=== PATIENT | female | born 1945 | race Caucasian/White ===

== ENCOUNTER 2018-06-01 08:31 | Outpatient (CLI) | payer OTHER, SELFPAY ==
[2018-06-01 11:12] LABS: ALT 36 U/L (12-78); AST 20 U/L (15-37); Albumin 3.7 g/dL (3.4-5.0); Alkaline Phosphatase 76 U/L (46-116); Anion Gap 7.1 mmol/L (3-11); BUN 24 mg/dL (7-18); Bilirubin, Total 0.6 mg/dL (0.2-1.0); CO2 30.9 mmol/L (21.0-32.0); CREATININE 1.02 mg/dL (0.55-1.02); Calcium 9.6 mg/dL (8.5-10.1); Chloride 104 mmol/L (98-107); Cholesterol 164 mg/dL (50-200); Estimated GFR 53.27 (mL/min/1.73m2); Glucose 114 mg/dL (70-100); HDL Cholesterol 33 mg/dL (40-60); LDL CHOLESTEROL 108 mg/dL (<100); Potassium 4.6 mmol/L (3.5-5.1); Sodium 142 mmol/L (136-145); Total Protein 6.9 g/dL (6.4-8.2); Triglyceride 108 mg/dL (30-150)
== END 2018-06-01 08:51 ==
PROVIDERS: PCP Family Medicine; Visit Provider Family Medicine
DX: E78.5 Hyperlipidemia, unspecified (principal)
CPT/HCPCS: 36415; 80053; 80061; 83721

== ENCOUNTER 2018-08-19 14:49 | Emergency (ER) | payer OTHER, SELFPAY ==
[2018-08-19 14:59] VITALS: BP 126/64; PULSE 109; RESP 18; TEMP 37.7; O2SAT 94
--- NOTE | 2018-08-19 15:22 | DI.RAD_ITS ---
SYMPTOM/DIAGNOSIS: COUGH, FEVER PA AND LATERAL CHEST: Comparison is made with 08/03/14. The heart size is normal. The lungs appear clear. No infiltrate, effusion or pulmonary edema is seen. IMPRESSION: No acute abnormality.
--- NOTE | 2018-08-19 15:23 | W.ED.GENAD ---
Discharge Plan Disposition Patient Disposition: HOME Condition: Improving Discharge Details Chief Complaint: Fever Clinical Impression: Fever Primary Care Provider: Chuyita Villa ED Provider: Corey Brumfield Home Meds and New Rx's Prescriptions: New doxycycline hyclate 100 mg capsule 100 mg PO BID 14 Days Qty: 28 RF: 0 Continued triamcinolone acetonide 80 GM ointment 1 kimberley Topical BID PRNRF: 0 ranitidine HCl [Zantac 75] 75 MG tablet 75 mg PO DAILY PRNRF: 0 betamethasone, augmented 50 GM cream 50 gm Topical PRN RF: 0 calcipotriene 120 GM cream 120 gm Topical PRN RF: 0 simvastatin 40 MG tablet 40 mg PO DAILY Qty: 90 RF: 11 citalopram 20 MG tablet 20 mg PO DAILY Qty: 90 RF: 12 aspirin [Aspir-81] 81 MG tablet,delayed release (DR/EC) 81 mg PO DAILY RF: 0 Discharge Instructions Instructions: Fever in Adults (ED) Additional Instructions: Please follow-up with [facility] on August 22 as planned. Please review with them the final results of your tick panel. Please take doxycycline as prescribed. As we discussed, this medication can cause increased sun sensitivity. Continue your regular medications. Please use 600 to 800 mg of ibuprofen as needed for fever Return for any acute concerns Discharge Data Discharge Date/Time-TO BE ENTERED AT DEPARTURE: 08/19/18 17:14 Medical Decision Making 72-year-old female presents with fever, scalp rash, report of numerous tick bites over the past few weeks. She also has had a recent upper respiratory illness with cough and production sputum. She arrives a temperature 37.7, triage pulse of 109, normotensive. On exam she does have erythematous and warmth to the scalp that blanches to the touch. There is no focal evidence of abscess. The differential diagnosis includes tickborne illness, viral syndrome, pneumonia, must exclude urinary tract infection. Patient had screening laboratories with tick panel and urinalysis obtained. She is referred for chest x-ray. Labs reveal white blood cell count of 15, hematocrit 45, platelets 209. There is left shift present. Chemistries reveal sodium 137, potassium 4.2, chloride 102, bicarb 23, BUN 16, creatinine 0.9, LFTs unremarkable Urine with small blood, otherwise negative. Chest x-ray without focal infiltrate. I do feel the patient has high likelihood of tickborne illness including Lyme disease, and will opt to initiate treatment with doxycycline pending review of her Lyme and tick panel. Patient has pre-standing follow-up with [facility] on August 22. She is stable for discharge. Lab Data Lab results reviewed: Yes I reviewed the patient's lab results. Laboratory Results - last 24 hr 08/19/18 08/19/18 08/19/18 15:30 15:40 15:40 WBC 15.21 H RBC 4.95 Hgb 15.2 Hct 45.5 MCV 91.9 MCH 30.7 MCHC 33.4 RDW 13.8 Plt Count 209 MPV 10.7 Immature Gran % 0.2 Neutrophils % 82.6 Lymphocytes % 10.2 Monocytes % 6.5 Eosinophils % 0.4 Basophils % 0.1 Absolute Neutrophils 12.56 H Absolute Lymphocytes 1.55 Absolute Monocytes 0.99 H Absolute Eosinophils 0.06 Absolute Basophils 0.02 Sodium 137 Potassium 4.2 Chloride 102 Carbon Dioxide 23.8 Anion Gap 11.2 H BUN 16 Creatinine 0.99 Estimated GFR/1.73 m2 55.14 Glucose 140 H Calcium 9.3 Total Bilirubin 0.6 AST 12 L ALT 28 Alkaline Phosphatase 76 Total Protein 7.6 Albumin 3.7 Urine Color Yellow Urine Clarity Clear Urine pH 6.5 Ur Specific [place] 1.020 Urine Protein Negative Urine Ketones Negative Urine Blood Small H Urine Nitrite Negative Urine Bilirubin Negative Urine Urobilinogen 0.2 Ur Leukocyte Esterase Negative Urine RBC 0-2 Urine WBC 0-2 Ur Epithelial Cells Moderate Urine Crystals Urine Bacteria Rare Urine Mucus Negative Ur Culture Indicated? No Urine Glucose Negative HPI General Mode of arrival: ambulatory. Date/Time Provider Initiated Documentation: 08/19/18 14:58. Limitations to Documentation: no limitations. Information obtained by: patient. History of Present Illness 72 year old F presents to the emergency department with the chief complaint of Fever and redness of the scalp, tick bites, described as moderate, Quality is described as dull and constant, and is localized to the head. Patient reports no radiation. Patient started experiencing this day(s) and it has been constant. No relieving factors improve symptom(s), No exacerbating factors reported . Patient notes cough and fever/chills; denies chest pain and shortness of breath. Patient did receive the following treatments prior to arrival, none Related Data Home Medications Medication Instructions Recorded Confirmed triamcinolone acetonide 1 kimberley TOPICAL BID PRN gm 05/18/12 08/19/18 aspirin [Aspir-81] 81 mg PO DAILY 01/01/13 08/19/18 ranitidine HCl [Zantac 75] 75 mg PO DAILY PRN tab-cap 06/10/13 08/19/18 betamethasone, augmented 50 gm TOPICAL PRN script 06/09/17 08/19/18 calcipotriene 120 gm TOPICAL PRN script 06/09/17 08/19/18 citalopram 20 mg PO DAILY #90 tab-cap 08/22/17 08/19/18 simvastatin 40 mg PO DAILY #90 tab-cap 08/22/17 08/19/18 doxycycline hyclate 100 mg PO BID 14 Days #28 cap 08/19/18 Previous Rx's Medication Instructions Recorded citalopram 20 mg PO DAILY #90 tab-cap 08/22/17 simvastatin 40 mg PO DAILY #90 tab-cap 08/22/17 doxycycline hyclate 100 mg PO BID 14 Days #28 cap 08/19/18 Allergies Allergy/AdvReac Type Severity Reaction Status Date / Time lidocaine Allergy Intermediate ??? Unverified 08/19/18 15:07 reaction. Flushing of face Penicillins Allergy Intermediate Skin Rash Unverified 08/19/18 15:07 codeine AdvReac Intermediate Nausea Unverified 08/19/18 15:07 ciprofloxacin AdvReac Mild GI Upset Unverified 08/19/18 15:07 General Stated Complaint: Fever PATRICE: 2 Review of Systems Review of Systems 6 systems reviewed and otherwise negative. Positive recent cough with production of sputum. Positive recent tick bites. 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 Grandmother Asthma Grandmother No problems noted. Sister Neoplasm Son No problems noted. Daughter No problems noted. Daughter No problems noted. Daughter No problems noted. Sister No problems noted. Social History Smoking/Tobacco Use Status: Former Tobacco Use Alcohol Intake: never Drug use: Never Do you feel safe at home: Yes Do you feel safe in your relationship?: Yes Exam Narrative Exam Narrative: GEN: awake, alert, oriented 3. Pleasant, well groomed, interactive. HEAD: Normocephalic, atraumatic, the scalp is diffusely erythematous and warm to the touch. No evidence of folliculitis ENT: Mucous membranes moist, oropharynx unremarkable, External ear exam unremarkable EYES: PERRL, EOMI NECK: Full ROM, no MARLENE, no menigismus CHEST/RESP: Nontender, clear to auscultation bilateral, no wheeze/rhonchi/rales CARDIOVASCULAR: RRR (at the time of exam), 2 - 3 out of 6 systolic ejection murmur. 2+ Rad pulse bilateral ABDOMEN: Soft, nontender, no mass. +Bowel sounds EXT: Full ROM, no edema, no rash Neuro: Grossly normal neurologic exam, conversant, interactive. Psych: Speech fluent, thoughts congruent, affect normal Course Vital Signs Temperature 37.7 C H 08/19/18 14:59 Pulse 109 H 08/19/18 14:59 Respiratory Rate 18 08/19/18 14:59 Blood Pressure 126/64 08/19/18 14:59 Pulse Oximetry 94 L 08/19/18 14:59 Temperature 37.7 C H 08/19/18 14:59 Temperature Source Oral 08/19/18 14:59 Pulse 109 H 08/19/18 14:59 Respiratory Rate 18 08/19/18 14:59 Respiratory Effort Non-Labored 08/19/18 15:05 Blood Pressure 126/64 08/19/18 14:59 Blood Pressure Position Sitting 08/19/18 14:59 Pulse Oximetry 94 L 08/19/18 14:59 Oxygen Delivery Method Room Air 08/19/18 14:59 Oxygen Flow Rate 0 08/19/18 14:59 Pain Level 8 08/19/18 14:59
[2018-08-19] MEDS: Ibuprofen 800 MG TAB PO (15:25)
[2018-08-19 15:44] LABS: Bilirubin Negative (Negative); Blood Small (Negative); Clarity Clear (Clear); Glucose Negative (Negative); Ketones Negative (Negative); Leukocyte Esterase Negative (Negative); Nitrite Negative (Negative); Urobilinogen 0.2 EU/dL (Up TO 0.2); pH 6.5 (5-8)
[2018-08-19 15:58] LABS: Bacteria Rare HPF (Negative); Epithelial Cells Moderate HPF (Negative); RBC 0-2 (0-2); WBC 0-2 HPF (0-5)
[2018-08-19 15:59] LABS: C & S Indicated? No; Mucus Negative (Negative)
[2018-08-19 16:07] LABS: Abs Immature Grans 0.03 k/cumm (0.0-0.09); Absolute Basophil Count 0.02 k/cumm (0.0-0.2); Absolute Eosinophil Count 0.06 k/cumm (0.0-0.7); Absolute Lymphocyte Count 1.55 k/cumm (1.2-3.4); Absolute Monocyte Count 0.99 k/cumm (0.11-0.7); Absolute Neutrophil Count 12.56 k/cumm (1.2-6.7); Basophils % 0.1; Eosinophils % 0.4; HCT 45.5 % (36.0-46.0); HGB 15.2 g/dL (12.0-15.5); Immature Grans % 0.2; Lymphocytes % 10.2; Mean Corp. HGB Concentration 33.4 g/dL (32.0-36.0); Mean Corpuscular Hemoglobin 30.7 pg (27.0-33.0); Mean Corpuscular Volume 91.9 fL (80-95); Mean Platelet Volume 10.7 fL (8.0-11.0); Monocytes % 6.5; Neutrophils % 82.6; Platelet Count 209 x1000/uL (130-400); RBC 4.95 m/cumm (4.00-5.20); RBC Distribution Width 13.8 % (11.7-14.6); White Blood Cell Count 15.21 k/cumm (4.4-10.8)
[2018-08-19 16:35] LABS: ALT 28 U/L (12-78); AST 12 U/L (15-37); Albumin 3.7 g/dL (3.4-5.0); Alkaline Phosphatase 76 U/L (46-116); Anion Gap 11.2 mmol/L (3-11); BUN 16 mg/dL (7-18); Bilirubin, Total 0.6 mg/dL (0.2-1.0); CO2 23.8 mmol/L (21.0-32.0); CREATININE 0.99 mg/dL (0.55-1.02); Calcium 9.3 mg/dL (8.5-10.1); Chloride 102 mmol/L (98-107); Estimated GFR 55.14 (mL/min/1.73m2); Glucose 140 mg/dL (70-100); Potassium 4.2 mmol/L (3.5-5.1); Sodium 137 mmol/L (136-145); Total Protein 7.6 g/dL (6.4-8.2)
[2018-08-19 16:46] VITALS: BP 124/67; PULSE 91; RESP 18; TEMP 36.4; O2SAT 96
[2018-08-19] MEDS: Doxycycline Hyclate 100 MG CAP PO (17:13)
--- NOTE | 2018-08-19 17:36 | DI.VRAD_ITS ---
EXAM: XR Chest, 2 Views EXAM DATE/TIME: 08/19/2018 3:23 PM CLINICAL HISTORY: 72 years old, female; Other: Cough; Additional info: Cough and fever TECHNIQUE: Imaging protocol: XR of the chest, 2 views. COMPARISON: CR CHEST 2 VIEWS PA,LAT 08/03/2014 1:24 PM FINDINGS: Lungs: Unremarkable. No consolidation. Pleural space: Unremarkable. No pleural effusion. No pneumothorax. Heart/Mediastinum: Unremarkable. No cardiomegaly. Bones/joints: Unremarkable. IMPRESSION: No evidence for acute abnormality in the chest. COMMENT: Preliminary interpretation is based on receipt of 2 image(s). A final report will be issued subsequently. Dictated and Authenticated by: Luz Elena Keating MD. Ordering:VIRGINIA Nicole MD
[2018-08-21 10:57] LABS: Lyme Ab w Rflx to Lyme Confirm Negative
[2018-08-22 22:00] LABS: Anaplasma phagocytophilum Negative (Negative); B. miyamotoi PCR Negative (Negative); Babesia divergens/MO-1 Negative (Negative); Babesia duncani Negative (Negative); Babesia microti Negative (Negative); Ehrlichia chaffeensis Negative (Negative); Ehrlichia ewingii/canis Negative (Negative); Ehrlichia muris eauclairensis Negative (Negative)
== END 2018-08-19 17:14 | disposition home or self-care (01) ==
PROVIDERS: Emergency Provider Emergency Medicine; PCP Family Medicine
DX: R50.9 Fever, unspecified (principal); R21 Rash and other nonspecific skin eruption; W57.XXXA Bitten or stung by nonvenomous insect and other nonvenomous arthropods, initial encounter
CPT/HCPCS: 36415; 80053; 87798; 99283; 71046; 81003; 81015; 85025; 86618

== ENCOUNTER 2019-11-22 04:36 | Outpatient (CLI) | payer OTHER, SELFPAY ==
--- NOTE | 2019-11-22 12:07 | DI.MAMMO_ITS ---
EXAM: MAMMO SCREENING CLINICAL HISTORY: SCREENING, Z12.31 TECHNIQUE: Mammograms were interpreted according to the usual protocol including computer analysis w [employer] CAD system, tomosynthesis and C-view imaging. COMPARISON: 2010 through 2017 FINDINGS: The breasts are composed of scattered fibroglandular densities, Breast Density category B. Left breast: No suspicious masses or suspicious microcalcifications are seen. No skin thickening or abnormal axillary lymph nodes are seen. There has been no significant change from prior exams. Right breast: There is been interval increase in size and density of the previously noted nodule in t he upper outer quadrant of the right breast. Spot compression views and ultrasound are requested for further evaluation. In the medial breast, on the CC view, there is a question of an additional area of nodularity versus overlying tissue. Spot compression view is also requested for this area. There are no suspicious c alcifications or skin thickening.. IMPRESSION: Spot compression views and ultrasound are requested for further evaluation of areas of nodularity in the right breast. BI-RADS Category 0 - Assessment Incomplete: Need additional imaging evaluation Breast Density - Category B, scattered fibroglandular densities. A negative radiographic report should not delay biopsy if a dominant or clinically suspicious mass is present. Up to ten percent of cancers are not identified on mammography. A negative report may reinforce clinical impression. Adenosis and dense breasts may obscure an underlying neoplasm. False positive reports average 6 to 10%. Patient will receive a letter notifying them of these results.
--- NOTE | 2019-11-22 13:00 | DI.DEXA_ITS ---
EXAM: XR DEXA BONE DENSITY W/WO LILLIANA CLINICAL HISTORY: OSTEOPENIA, M85.80 TECHNIQUE: [employer] Horizon C densitometer. COMPARISON: Two thousand six and 2008 FINDINGS: The lateral view of the thoracic and lumbar spine shows no evidence of compression fractures. The bone mineral density measurements of the lumbar spine correspond to a total T-score of -0.3, in t he normal range. This represents a 10.6 percent increase when compared with 2008 and a 14.9 percent increase when compared with 2006. There are degenerative disc changes with prominent endplate osteop hytes at the L2-3 and L3-4 levels which likely contribute to increasing bone mineral density. The bone mineral density measurements of the left hip correspond to a total T-score of -1.8 and a fem oral neck T-score of -2.2, in the normal range. This is not significantly changed from the previous exam. The bone mineral density measurements of the left forearm correspond to a total T-score of -0. 3 and a T-score of the distal 3rd of -0.8, in the normal range. The forearm was not analyzed on the previous exams. IMPRESSION: Osteopenia of left hip. Normal bone mineral density of the lumbar spine and forearm.
== END 2019-11-22 04:56 ==
PROVIDERS: Visit Provider Family Medicine
DX: Z12.31 Encounter for screening mammogram for malignant neoplasm of breast (principal); M85.88 Other specified disorders of bone density and structure, other site
CPT/HCPCS: 77063; 77067; 77080

== ENCOUNTER 2019-11-27 00:41 | Outpatient (CLI) | payer OTHER, SELFPAY ==
--- NOTE | 2019-11-27 | DI.MAMMO_ITS ---
EXAM: MG MAMMO SCREEN CALL BACK UNI CLINICAL HISTORY: INCREASE IN SIZE AND DENSITY OF NOTED NODULE IN UOQ RT BREAST. TECHNIQUE: Mammograms were interpreted according to the usual protocol including computer analysis w [employer] CAD system, tomosynthesis and C-view imaging. COMPARISON: FINDINGS: Additional mammographic views of the right breast and right breast ultrasound are interpreted in conj unction. These examinations were obtained to evaluate a well-circumscribed nodule of the lateral concha tral portion of the right breast and an area of questionable nodularity of the medial central portion of the right breast. There is a simple cyst corresponding in location to the mammographically ident ified mass of the lateral central portion of the breast measuring about 8 millimeters in diameter. Ultrasound a graphically, there is no mass or cyst corresponding to the questionable area of nodulari ty in the medial central portion of the breast. IMPRESSION: No specific evidence of malignancy at this time. Follow-up unilateral right breast mammogram request ed in 6 months. BI-RADS Category 3 - 6 month - Probably Benign Finding: Recommend follow-up mammography in 6 months Breast Density - Category B - Scattered areas of fibroglandular density
== END 2019-11-27 01:01 ==
PROVIDERS: Visit Provider Family Medicine
DX: N63.11 Unspecified lump in the right breast, upper outer quadrant (principal)
CPT/HCPCS: 76642; 77063; 77067

== ENCOUNTER 2020-01-21 00:32 | Outpatient (CLI) | payer OTHER, SELFPAY ==
--- NOTE | 2020-01-21 | DI.RAD_ITS ---
EXAM: XR SHOULDER LT COMPLETE 2+V CLINICAL HISTORY: LT SHOULDER PAIN,M25.512 TECHNIQUE: COMPARISON: No exams were available for comparison FINDINGS: Five views were obtained. There is a small calcific or ossific density projected anteriorly near the coracoid. There are mild hypertrophic marginal osteophytes of the acromioclavicular joint. Minimal marginal osteophytes noted at the glenohumeral joint. Cartilaginous joint space of the glenohumeral joint appears fairly well maintained. IMPRESSION: Mild degenerative changes as described. No evidence fracture or dislocation. RADIATION DOSE DELIVERED: Total DLP Total DLP
== END 2020-01-21 00:52 ==
PROVIDERS: PCP Family Medicine; Visit Provider Family Medicine
DX: M25.512 Pain in left shoulder (principal); M19.012 Primary osteoarthritis, left shoulder
CPT/HCPCS: 73030

== ENCOUNTER → 2020-02-19 01:11 | Outpatient (CLI) | payer OTHER, SELFPAY ==
--- NOTE | 2020-02-19 | DI.RAD_ITS ---
EXAM: XR KNEE RT 3V AP,LAT,HAYDE CLINICAL HISTORY: ACUTE RT KNEE PAIN,M25.561 TECHNIQUE: COMPARISON: CR LEFT KNEE 3 VIEW COMPLETE from 05/28/2012 FINDINGS: Three views were obtained. There is severe narrowing of the medial tibiofemoral cartilaginous joint spaces. There is chondrocalcinosis noted at the tibiofemoral joints. There are mild marginal osteop hytes of all 3 joints of the knee. There is mild subchondral sclerosis at the medial tibiofemoral michelle int. IMPRESSION: Severe DJD involving medial tibiofemoral joint. RADIATION DOSE DELIVERED: Total DLP
== END ==
PROVIDERS: PCP Family Medicine; Visit Provider Family Medicine
DX: M17.11 Unilateral primary osteoarthritis, right knee (principal)
CPT/HCPCS: 73562

== ENCOUNTER 2020-05-27 01:40 | Outpatient (CLI) | payer OTHER, SELFPAY ==
--- NOTE | 2020-05-27 09:21 | DI.MAMMO_ITS ---
EXAM: MG MAMMO DIAGNOSTIC UNI CLINICAL HISTORY: DIAGNOSTIC, 6 MONTH FOLLOW UP, Z09 TECHNIQUE: Mammograms were interpreted according to the usual protocol including computer analysis w [employer] CAD system, tomosynthesis and C-view imaging. COMPARISON: MG Screening Bilat Mammo from 07/10/2015 MG Screening Bilat Mammo from 08/29/2017 MG MG MAMMO SCREENING from 11/22/2019 MG MG MAMMO SCREEN CALL BACK UNI from 11/27/2019 MG MG MAMMO SCREEN CALL BACK UNI from 11/27/2019 US US BREAST RT LIMITED from 11/27/2019 FINDINGS: This is a six-month follow-up of the right breast. The right breast is composed of scattered fibroglandular densities, Breast Density category B. No suspicious masses or suspicious microcalcifications are seen. No skin thickening or abnormal axillary lymph nodes are seen. The previously questioned asymmetry in the medial breast is not visible on the current exam. The cys t in the upper outer quadrant is unchanged.. IMPRESSION: BI-RADS Category 2 - Benign Findings Yearly screening mammography is recommended. Breast Density - Category B, scattered fibroglandular densities. A negative radiographic report should not delay biopsy if a dominant or clinically suspicious mass is present. Up to ten percent of cancers are not identified on mammography. A negative report may reinforce clinical impression. Adenosis and dense breasts may obscure an underlying neoplasm. False positive reports average 6 to 10%. Patient will receive a letter notifying them of these results.
== END 2020-05-27 02:00 ==
PROVIDERS: PCP Family Medicine; Visit Provider Family Medicine
DX: Z12.31 Encounter for screening mammogram for malignant neoplasm of breast (principal); R92.8 Other abnormal and inconclusive findings on diagnostic imaging of breast; N60.01 Solitary cyst of right breast
CPT/HCPCS: 77061; 77065; G0279

== ENCOUNTER 2020-06-23 15:08 | Inpatient (IN) | payer OTHER, SELFPAY ==
[2020-06-23] VITALS (9 sets, daily range): BP systolic 108–120; BP diastolic 47–70; PULSE 78–94; RESP 18; TEMP 36.6; O2SAT 94–96
--- NOTE | 2020-06-23 15:30 | DI.CT_ITS ---
Exam(s) CT ABDOMEN PELVIS W EXAM: CT ABDOMEN PELVIS W CLINICAL HISTORY: lower abdomen pain TECHNIQUE: Imaging Protocol: Axial computed tomography images with coronal and sagittal reformatted images were created and reviewed CONTRAST MATERIAL: Intravenous: Omnipaque 350 Contrast volume:100 mL Oral: No COMPARISON: CT ABD PELVIS WITH CONTRAST from 09/28/2010 CT ABD PELVIS WITH CONTRAST from 09/28/2010 FINDINGS: ABDOMEN: Lung Bases: There is scarring or atelectasis in the lung bases. There is a 8 mm nodule in the right lower lobe. There is a small hiatal hernia. Liver: Normal density. There are cysts seen in the liver. No suspicious hepatic masses are present. Portal, Superior Mesenteric, and Splenic Veins: Unremarkable. Gallbladder and Biliary Tract: No radiodense calculus or dilation. Pancreas: Normal density, no abnormal calcifications or inflammatory process. Spleen: Normal. Adrenals: No masses seen. Kidneys: Normal size, contour and axis. No radiodense stones or obstructive uropathy. There are tiny hypodensities in the kidneys. These are too small for further characterization, but likely reflect s mall cysts. Abdominal Aorta: Abdominal portion non-dilated. There is ectasia of the abdominal aorta measuring up to 2.8 cm. Moderate atherosclerosis is present. Bowel: There is diverticulosis scattered throughout the colon. There is thickening of the wall of th e sigmoid colon with pericolonic inflammatory changes suggestive of acute diverticulitis. There is a 3.5 x 1.5 cm fluid collection lateral and inferior to the inflamed sigmoid consistent with an absces s. There is no pneumoperitoneum. The left ovary is not distinctly visualized and may be involved wi th the adjacent sigmoid diverticulitis. There is also irregular enhancement on the surface of the ut erus adjacent to the sigmoid colon which likely reflects reactive inflammation. No evidence of appen dicitis. No evidence of bowel obstruction. Peritoneal Cavity: Please see the above discussion under bowel. No free air. Lymph Nodes: Within normal limits. Bones: Within normal limits for the patient's age. Soft Tissues: Unremarkable. PELVIS: Bladder: Symmetric distention, no gross wall thickening. Reproductive Organs: Please see the above section. Lymph Nodes: Within normal limits. Bones: Within normal limits for the patient's age. IMPRESSION: 1. Findings of acute sigmoid diverticulitis. There is a 3.5 x 1.5 cm pericolonic abscess. No pneumo peritoneum. 2. Inflammatory changes involving the uterus and left adnexa likely secondary to the adjacent sigmoid diverticulitis. 3. 8 mm right lower lobe pulmonary nodule. For low risk patients, CT scan at 6-12 months is recommen ded. Then consider CT scan in 18-24 months. For patients at high risk (history of smoking or other risk factors), recommend CT scan at 6-12 months, then CT scan of the chest at 18-24 months. RADIATION DOSE DELIVERED: 955.09mGy.cm Total DLP DATA REPOSITORY: All CT scans at this facility are submitted to the National Radiology Data Registry (NRDR) Dose Index Registry (DIR) with the [employer] (ACR). RADIATION OPTIMIZATION: All CT scans at this facility use at least one of these dose optimization te chniques: automated exposure control; mA and/or kV adjustment per patient size (includes targeted exa ms where dose is matched to clinical indication); or iterative reconstruction.
--- NOTE | 2020-06-23 15:48 | ED.GENADUL_ITS ---
Discharge Plan Disposition Patient Disposition: [facility] INPATIENT Condition: Stable Discharge Details Clinical Impression: Diverticulitis of intestine with abscess Primary Care Provider: Nara Contreras ED Provider: Dnoald Franklin Home Meds and New Rx's Prescriptions: No Action meloxicam 15 mg tablet 15 mg PO DAILY RF: 0 methotrexate sodium 2.5 mg tablet 15 mg PO QWEEK RF: 0 omeprazole 20 mg capsule,delayed release(DR/EC) 20 mg PO DAILY RF: 0 folic acid 1 mg tablet 1 mg PO DAILY RF: 0 rosuvastatin 5 mg tablet 5 mg PO QPM RF: 0 cholecalciferol (vitamin D3) [Vitamin D3] 50 mcg (2,000 unit) Tablet 50 mcg PO DAILY RF: 0 Medical Decision Making 74 yo female with hx of psoriasis, hld who has had prior tubal ligation otherwise states no prior abdominal surgeries comes in with lower abdomen cramping and sharp pains since Monday. Denies vomit but has had nausea, feels she has had some burning with urination, no changes in bowel habits. Denies chest pain, fevers, dyspnea. She has no upper abdomen tenderness on exam but both lower quadrants are tender to palpation. Given 4 days of pain and her tenderness on exam will obtain labs and imaging to evaluate for possible c olitis, appendicitis, diverticulitis, small bowel obstruction. She has no pain out of proportion to exam so doubt mesenteric ischemia labs with wbc of 15, ct showing 1.6x3.8cm small abscess, no free air. She remains stable, will consult with surgery about admission for iv antibiotics. She has pcn and cipro allergy so will start cefepime and flagyl and monitor her during the cefepime for any signs of reaction spoke with Dr. hwang who accepts for admission Differential Diagnosis Differential Diagnosis: appendicitis, colitis, diverticulitis, sbo Medical Records Medical records reviewed: Yes I reviewed the patient's medical records. Imaging Data Radiologic Study: Attestation: I personally reviewed and interpreted this imaging study as follows: Imaging: CT Scan Radiologist's impression: IMPRESSION: 1. Findings of acute sigmoid diverticulitis with 1.6 x 3.8 cm pericolonic fluid collection consistent with small abscess. No extraluminal air is identified. 2. The inflammation associated with the sigmoid diverticulitis involves the uterus and left adnexa, as described above. 3. Severe atherosclerosis of the abdominal aorta with focal fusiform ectasia as described above. 4. Findings of mild interstitial pulmonary fibrosis at the lung bases. 5. 8 x 5 mm subpleural right lower lobe nodule, indeterminate. For patients at low risk (minimal or absent history of smoking and of other known risk factors), recommend CT Chest at 6-12 months, then consider CT Chest at 18-24 months. For patients at high risk (history of smoking or of other known risk factors), recommend CT Chest at 6-12 months, then CT Chest at 18-24 months. (Reference: Emelina) Lab Data Lab results reviewed: Yes I reviewed the patient's lab results. HPI General Mode of arrival: ambulatory . Date/Time Provider Initiated Documentation: 06/23/20 15:20 . Limitations to Documentation: no limitations . Information obtained by: patient . History of Present Illness 74 year old F presents to the emergency department with the chief complaint of abdomen pain, described as moderate, and is localized to the abdomen. Patient reports no radiation. Patient started experiencing this day(s) (4) and it has been constant. No relieving factors improve symptom(s), No exacerbating factors reported . Patient notes other (nausea). Patient did receive the following treatments prior to arrival, none Related Data Home Medications Medication Instructions Recorded Confirmed cholecalciferol (vitamin D3) 50 mcg PO DAILY 06/23/20 06/23/20 [Vitamin D3] folic acid 1 mg PO DAILY 06/23/20 06/23/20 meloxicam 15 mg PO DAILY 06/23/20 06/23/20 methotrexate sodium 15 mg PO QWEEK 06/23/20 06/23/20 omeprazole 20 mg PO DAILY 06/23/20 06/23/20 rosuvastatin 5 mg PO QPM 06/23/20 06/23/20 Allergies Allergy/AdvReac Type Severity Reaction Status Date / Time lidocaine Allergy Intermediate ??? Unverified 06/23/20 15:21 reaction. Flushing of face Penicillins Allergy Intermediate Skin Rash Unverified 06/23/20 15:21 codeine AdvReac Intermediate Nausea Unverified 06/23/20 15:21 ciprofloxacin AdvReac Mild GI Upset Unverified 06/23/20 15:21 General Stated Complaint: Abd Prob PATRICE: 3 Review of Systems All systems reviewed & are unremarkable except as noted in HPI and below Constitutional Constitutional: Denies chills, Denies fever(s) and Denies weakness ENT Ears, Nose, Mouth, and Throat: Denies change in voice Cardiovascular Cardiovascular: Denies chest pain and Denies dyspnea Respiratory Respiratory: Denies cough and Denies dyspnea Gastrointestinal Gastrointestinal: Denies vomiting Neurologic Neurologic: Denies weakness [facility] Medical History (Updated 06/23/20 @ 17:46 by Donald Franklin MD) Anxiety (12/08/14) Atrophic vaginitis (06/17/14) Diverticulosis of colon without diverticulitis Elevated random blood glucose level (08/03/14) History of tobacco use Lichen sclerosus et atrophicus of the vulva (06/30/15) Low back pain (01/19/06) DDD L5-S1 Neck pain C5-6 disc space narrowing Osteopenia T-2.01/-1.6/-1.7 Right hip pain (05/30/17) Urinary incontinence (06/17/14) Vitamin D deficiency (06/09/17) Surgical History Appendectomy Arthroplasty of knee (~05/2009) right knee torn medial and lateral meniscus; Meniscectomy and chonfroplasty of medial femoral condyle. Ligation of fallopian tube Family History Mother Diabetes Heart disease Father , PNEUMONIA at age 92. Heart disease Hyperlipidemia Sister Alcohol abuse Sister Heart disease Grandfather Heart disease Grandfather No problems noted. Grandmother Asthma Grandmother No problems noted. Sister Neoplasm LEUKEMIA Son No problems noted. Daughter No problems noted. Daughter No problems noted. Daughter No problems noted. Sister , CHILDBIRTH at age 21. No problems noted. Social History Smoking/Tobacco Use Status: Former Tobacco Use Smoking risk assessment performed?: Yes Alcohol Intake: never Drug use: Never Do you feel safe at home: Yes Do you feel safe in your relationship?: Yes Exam Const General: no acute distress Orientation: alert HENMT Head: normal to inspection Ears: external ears normal General nose exam: external nose normal Mouth: moist mucous membranes Eyes General: appearance normal, both eyes and all related structures Neck Neck: normal visual inspection Resp Effort & Inspection: normal respiratory effort and able to speak in complete sentences Cardio Rate: regular rate GI Palpation: soft and tender Skin General skin exam: no rashes or lesions noted Neuro General: patient alert and patient oriented x3 Extrem General: normal to inspection Psych Mental Status: mental status grossly normal Course Vital Signs Vital signs: Vital Signs Temperature 36.6 C 06/23/20 15:17 Pulse 94 H 06/23/20 15:17 Respiratory Rate 18 06/23/20 15:17 Blood Pressure 120/62 06/23/20 15:17 Pulse Oximetry 96 06/23/20 15:17 Temperature 36.6 C 06/23/20 15:17 Temperature Source Skin 06/23/20 15:17 Pulse 94 H 06/23/20 15:17 Respiratory Rate 18 06/23/20 15:17 Respiratory Effort Non-Labored 06/23/20 15:25 Blood Pressure 120/62 06/23/20 15:17 Blood Pressure Position Sitting 06/23/20 15:17 Pulse Oximetry 96 06/23/20 15:17 Oxygen Delivery Method Room Air 06/23/20 15:17 Oxygen Flow Rate 0 06/23/20 15:17 Pain Level 10 06/23/20 15:17
[2020-06-23 15:51] LABS: Abs Immature Grans 0.07 10^3/uL (0.0-0.06); Absolute Eosinophil Count 0.03 10^3/uL (0.0-0.7); Absolute Lymphocyte Count 1.28 10^3/uL (1.2-3.4); Basophils % 0.3; Eosinophils % 0.2; Immature Grans % 0.4; Lymphocytes % 8.2; MCH 28.9 pg (27.0-33.0); MCHC 32.6 % (32.0-36.0); MCV 88.7 fL (80-95); MPV 10.1 fL (8.0-11.0); Monocytes % 8.9; Nucleated RBC 0 %; Platelet Count 241 10^3/uL (130-400); RBC 4.85 10^6/uL (3.93-5.22); RDW 15.5 % (11.7-14.6); RDW-SD 49.5 fL; WBC 15.56 10^3/uL (4.4-10.8)
[2020-06-23] MEDS: HYDROmorphone 2 MG/ML VIAL 1 MG IVP (15:57)
[2020-06-23] MEDS: Ondansetron 4 MG/2 ML VIAL IVP (15:58)
[2020-06-23] MEDS: Normal Saline 1,000 ML 1000 ML IV (15:58)
[2020-06-23 16:03] LABS: Lipase 53 U/L (73-393)
[2020-06-23 16:05] LABS: ALT 28 U/L (14-59); AST 12 U/L (15-37); Albumin 3.4 g/dL (3.4-5.0); Alkaline Phosphatase 85 U/L (46-116); Anion Gap 8.9 mmol/L (3-11); BUN 16 mg/dL (7-18); Bilirubin, Direct 0.3 mg/dL (0.0-0.2); Bilirubin, Total 1.2 mg/dL (0.2-1.0); CO2 28.1 mmol/L (21.0-32.0); CREATININE 1.1 mg/dL (0.55-1.02); Calcium 9.6 mg/dL (8.5-10.1); Chloride 102 mmol/L (98-107); Estimated GFR 48.55 (mL/min/1.73m2); Glucose 114 mg/dL (74-106); Potassium 4.1 mmol/L (3.5-5.1); Sodium 139 mmol/L (136-145); Total Protein 7.5 g/dL (6.4-8.2)
[2020-06-23 16:06] LABS: Absolute Basophil Count 0.05 10^3/uL (0.0-0.2); Absolute Monocyte Count 1.38 10^3/uL (0.1-0.8); Absolute Neutrophil Count 12.76 10^3/uL (1.2-6.7)
[2020-06-23 16:07] LABS: PTT Activated 26.5 sec (21.0-27.5); Prothrombin Time 10.5 sec (9.3-11.0)
[2020-06-23] MEDS: Omnipaque 350 MG/ML 100 ML BTL IJ (16:33)
[2020-06-23] MEDS: Normal Saline - Diluent 50 ML VIAL IV (16:35)
[2020-06-23 17:01] LABS: Bilirubin Negative (Negative); Blood Small (Negative); Clarity Clear (Clear); Glucose Negative (Negative); Ketones 15 mg/dL (Negative); Leukocyte Esterase Small (Negative); Nitrite Negative (Negative); Urobilinogen 0.2 EU/dL (Up TO 0.2)
[2020-06-23 17:13] LABS: Bacteria Negative HPF (Negative); C & S Indicated? Yes; Casts Negative LPF (Negative); Crystals Negative HPF (Negative); Epithelial Cells Few HPF (Negative); Mucus Negative (Negative); Other Cells Few Renal (Negative)
--- NOTE | 2020-06-23 17:27 | DI.VRAD_ITS ---
Addendum created by Rajinder Lin MD on 06/23/2020 5:45:22 PM EDT: Findings were discussed with Donald Franklin at 06/23/2020 5:45 PM EDT. Initial report created on 06/23/2020 5:26:16 PM EDT: PROCEDURE INFORMATION: Exam: CT Abdomen And Pelvis With Contrast Exam date and time: 06/23/2020 4:29 PM Age: 74 years old Clinical indication: Other: Lower abdomen pain TECHNIQUE: Imaging protocol: Computed tomography of the abdomen and pelvis with contrast. Radiation optimization: All CT scans at this facility use at least one of these dose optimization techniques: automated exposure control; mA and/or kV adjustment per patient size (includes targeted exams where dose is matched to clinical indication); or iterative reconstruction. Contrast material: OMNIPAQUE 350; Contrast volume: 100 ml; Contrast route: INTRAVENOUS (IV); COMPARISON: SC ABDOMEN ULTRASOUND (P) 06/09/2017 10:27 AM FINDINGS: Lungs: There is mild subpleural reticular opacity within the lung bases suggesting mild interstitial pulmonary fibrosis. There is an 8 x 5 mm subpleural right lower lobe nodule on image 4, series 4. Mediastinal space: There is a small sliding hiatal hernia. Liver: There are 2 small left hepatic lobe cysts, the larger measuring 1.1 cm. Gallbladder and bile ducts: Normal. No calcified stones. No ductal dilation. Pancreas: The pancreas is mildly atrophic, but otherwise appears unremarkable without focal lesion or evidence of acute inflammation. Spleen: Normal. No splenomegaly. Adrenal glands: There is diffuse bilateral nonspecific mild adrenal enlargement, suggesting hyperplasia. Kidneys and ureters: There is a tiny subcentimeter left renal lesion which is too small to characterize but likely represents a benign cyst. No renal or ureteral stones are identified. There is no hydronephrosis or hydroureter. Stomach and bowel: There is distal colonic diverticulosis. There is inflammatory wall thickening of the distal segment of the sigmoid colon, as seen around image 69, series 4. There is a 1.6 x 3.8 cm fluid collection extending posteriorly and inferiorly from the distal sigmoid colon, best seen around image 72, series 4, with surrounding marked fat stranding as well as mild rim enhancement, consistent with small pericolonic abscess. No extraluminal air is identified. Appendix: No evidence of appendicitis. Intraperitoneal space: Unremarkable. No free air. No significant fluid collection. Vasculature: There is severe atherosclerotic calcification the abdominal aorta, with focal ectasia measuring 2.7 x 2.9 cm. Lymph nodes: Unremarkable. No enlarged lymph nodes. Urinary bladder: No bladder stones are identified. Reproductive: There is mild irregular enhancement of the surface of the uterus adjacent to the sigmoid colon, likely reactive inflammation. The left ovary is not well visualized and appears to be involved in the pericolonic inflammation associated with sigmoid diverticulitis. Bones/joints: There is multilevel moderate degenerative change of the lumbar spine. No acute fractures are identified. Soft tissues: Unremarkable. Other findings: There is at least moderate calcification of the aortic valve. IMPRESSION: 1. Findings of acute sigmoid diverticulitis with 1.6 x 3.8 cm pericolonic fluid collection consistent with small abscess. No extraluminal air is identified. 2. The inflammation associated with the sigmoid diverticulitis involves the uterus and left adnexa, as described above. 3. Severe atherosclerosis of the abdominal aorta with focal fusiform ectasia as described above. 4. Findings of mild interstitial pulmonary fibrosis at the lung bases. 5. 8 x 5 mm subpleural right lower lobe nodule, indeterminate. For patients at low risk (minimal or absent history of smoking and of other known risk factors), recommend CT Chest at 6-12 months, then consider CT Chest at 18-24 months. For patients at high risk (history of smoking or of other known risk factors), recommend CT Chest at 6-12 months, then CT Chest at 18-24 months. (Reference: Emelina) REFERENCES: Elizabethhoeyad H, et al. Guidelines for Management of Incidental Pulmonary Nodules Detected on CT Images: From the Fleischner Society 2017. Radiology. 2017;284(1):228-243. Dictated and Authenticated by: Rajinder Lin MD. Ordering:ADAMA Bennett MD
[2020-06-23] MEDS: CEFEPIME 2 GM in Normal Saline 100 ML IVPB (18:17)
[2020-06-23 18:54] LABS: Source Nasal/Nares
--- NOTE | 2020-06-23 19:04 | W.PM.HP.N ---
Date of service: 06/23/20 Time of Service: 19:04 Assessment and Plan Assessment and plan (1) Osteopenia: Status: Chronic (2) Atrophic vaginitis: Status: Chronic (3) Elevated random blood glucose level: Status: Resolved (4) Hyperlipidemia: Status: Chronic (5) History of tobacco use: Status: Resolved (6) Psoriasis: Status: Chronic (7) Diverticulitis of intestine with abscess: Status: Acute Assessment and plan: Patient is doing mid for IV antibiotics, pain management, GI and DVT prophylaxis and supportive care. We will have by imaging at [facility] reviewing the films in the a.m. to see if she is a candidate for trach placement. We will hold her methotrexate at this time because of infection I did personally review her antibiotics and the images were sent down to body imaging at [facility]. We will see if a feel the abscess is amenable to CT drainage in the a.m. patient is n.p.o. after midnight and not on any blood thinners Currently she is very stable 45 minsutes spent doing consult- reviewing charts/old notes/ct and labs (cbc/comp/inr) and d/w pt her prognosis and treatment paln. (8) Hiatal hernia with GERD: Status: Acute (9) Lung nodule seen on imaging study: Status: Acute (10) Aortic atherosclerosis: Status: Acute History of Present Illness Consults Consult date: 06/23/20 Narrative: Patient came to the ER today complaining of left lower quadrant pain anorexia and obstipation. She states the pain started on Monday night. She did not eat anything unusual just usual. There is no unusual activities or trauma. She denies straining to move her bowels. Her bowels are normally regular. She has had diverticulitis in the past and its been over 10 years since she has had an episode. She states pain feels like it is hot it is in the left lower quadrant it does not radiate to the back pelvis she is not moved her bowels since . She has had no diarrhea or bleeding. She has no appetite. She has had some nausea but no vomiting. She has had no fever or chills. She just does not feel good. She did not sleep well last night. She has had a colonoscopy previously but it has been at least 10 years. She is on methotrexate for psoriatic arthritis. She takes her MTX on Fridays. She is not on any other steroids. It has controlled her arthritis symptoms very well. She is on a low dose. Review of Systems All systems reviewed & are unremarkable except as noted in HPI and below PFSH Medical History Anxiety (12/08/14) Atrophic vaginitis (06/17/14) Diverticulosis of colon without diverticulitis Elevated random blood glucose level (08/03/14) History of tobacco use Lichen sclerosus et atrophicus of the vulva (06/30/15) Low back pain (01/19/06) DDD L5-S1 Neck pain C5-6 disc space narrowing Osteopenia T-2.01/-1.6/-1.7 Right hip pain (05/30/17) Urinary incontinence (06/17/14) Vitamin D deficiency (06/09/17) Surgical History Appendectomy Arthroplasty of knee (~05/2009) right knee torn medial and lateral meniscus; Meniscectomy and chonfroplasty of medial femoral condyle. Ligation of fallopian tube Family History Mother Diabetes Heart disease Father , PNEUMONIA at age 92. Heart disease Hyperlipidemia Sister Alcohol abuse Sister Heart disease Grandfather Heart disease Grandfather No problems noted. Grandmother Asthma Grandmother No problems noted. Sister Neoplasm LEUKEMIA Son No problems noted. Daughter No problems noted. Daughter No problems noted. Daughter No problems noted. Sister , CHILDBIRTH at age 21. No problems noted. Social History Smoking/Tobacco Use Status: Former Tobacco Use Smoking risk assessment performed?: Yes Alcohol Intake: never Drug use: Never Do you feel safe at home: Yes Do you feel safe in your relationship?: Yes Meds Allergies and Home Medications Allergies Allergy/AdvReac Type Severity Reaction Status Date / Time lidocaine Allergy Intermediate ??? Unverified 06/23/20 15:21 reaction. Flushing of face Penicillins Allergy Intermediate Skin Rash Unverified 06/23/20 15:21 codeine AdvReac Intermediate Nausea Unverified 06/23/20 15:21 ciprofloxacin AdvReac Mild GI Upset Unverified 06/23/20 15:21 Home Medications Medication Instructions Recorded Confirmed Type cholecalciferol (vitamin D3) 50 mcg PO DAILY 06/23/20 06/23/20 History [Vitamin D3] folic acid 1 mg PO DAILY 06/23/20 06/23/20 History meloxicam 15 mg PO DAILY 06/23/20 06/23/20 History methotrexate sodium 15 mg PO QWEEK 06/23/20 06/23/20 History omeprazole 20 mg PO DAILY 06/23/20 06/23/20 History rosuvastatin 5 mg PO QPM 06/23/20 06/23/20 History Exam Const General: cooperative, healthy appearing, comfortable, no acute distress, well developed and well groomed Nutritional Appearance: average body habitus and well nourished Orientation: alert, awake and oriented x3 HENMT Head: normal to inspection, normocephalic and atraumatic Ears: hearing grossly normal bilaterally and external ears normal General nose exam: external nose normal Face and sinus: normal facial exam and sinuses nontender Mouth: oral mucosae normal, lip normal, tongue normal and moist mucous membranes Teeth and gingiva: dentition normal Eyes General: appearance normal, both eyes and all related structures Conjunctivae: conjunctivae normal Sclera: sclerae normal Pupils: PERRL Neck Neck: normal visual inspection and full ROM Chest Chest: normal inspection of the chest Resp Effort & Inspection: normal respiratory effort, able to speak in complete sentences, no cough, no nasal flaring, not tachypneic and no use of accessory muscles Auscultation: clear to auscultation bilaterally, no rales, no rhonchi and no wheezes Cardio Jugular venous pressure: no JVD Rate: regular rate Rhythm: regular rhythm GI Inspection: normal to inspection, no edema and non-distended Palpation: soft, no masses, tender and No ascites Auscultation: normal bowel sounds Other: She has localized rebound and guarding in the left lower quadrant. She actually has hyperactive bowel sounds at this point. She says she actually feels hungry for the first time in a while. She has had 1 dose antibiotics so far. Skin General skin exam: no rashes or lesions noted Trauma: no lacerations or abrasions Neuro General: patient alert, patient oriented x3, oriented, gait normal, moves all extremities, no focal motor deficits and CN's II-XI intact bilaterally Cognition: normal cognition Speech: speech normal Gait: normal gait Motor: muscle tone normal throughout Extrem General: normal to inspection, full ROM and no clubbing, cyanosis or edema Other: Chronic changes from psoriatic arthritis mostly noted in her hands and her knees.. Psych Appearance: grossly normal and well kempt Mental Status: mental status grossly normal Speech and Movement: speech and movement normal Affect: normal affect Results Labs Result diagrams: 06/23/20 15:44 06/23/20 15:44 Labs: Laboratory Results - last 24 hr 06/23/20 06/23/20 06/23/20 15:44 15:44 15:44 WBC 15.56 H RBC 4.85 Hgb 14.0 Hct 43.0 MCV 88.7 MCH 28.9 MCHC 32.6 RDW 15.5 H Plt Count 241 MPV 10.1 Immature Gran % 0.4 Neutrophils % 82.0 Lymphocytes % 8.2 Monocytes % 8.9 Eosinophils % 0.2 Basophils % 0.3 Nucleated RBC % 0 Absolute Neutrophils 12.76 H Absolute Lymphocytes 1.28 Absolute Monocytes 1.38 H Absolute Eosinophils 0.03 Absolute Basophils 0.05 PT 10.5 INR 1.0 APTT 26.5 Sodium 139 Potassium 4.1 Chloride 102 Carbon Dioxide 28.1 Anion Gap 8.9 BUN 16 Creatinine 1.1 H Estimated GFR/1.73 m2 48.55 Glucose 114 H Calcium 9.6 Total Bilirubin 1.2 H Conjugated Bilirubin 0.3 H AST 12 L ALT 28 Alkaline Phosphatase 85 Total Protein 7.5 Albumin 3.4 Lipase Urine Color Urine Clarity Urine pH Ur Specific [place] Urine Protein Urine Ketones Urine Blood Urine Nitrite Urine Bilirubin Urine Urobilinogen Ur Leukocyte Esterase Urine RBC Urine WBC Ur Epithelial Cells Urine Crystals Urine Bacteria Urine Casts Urine Mucus Urine Other Ur Culture Indicated? Urine Glucose COVID-19 Source 06/23/20 06/23/20 06/23/20 15:44 16:48 18:28 WBC RBC Hgb Hct MCV MCH MCHC RDW Plt Count MPV Immature Gran % Neutrophils % Lymphocytes % Monocytes % Eosinophils % Basophils % Nucleated RBC % Absolute Neutrophils Absolute Lymphocytes Absolute Monocytes Absolute Eosinophils Absolute Basophils PT INR APTT Sodium Potassium Chloride Carbon Dioxide Anion Gap BUN Creatinine Estimated GFR/1.73 m2 Glucose Calcium Total Bilirubin Conjugated Bilirubin AST ALT Alkaline Phosphatase Total Protein Albumin Lipase 53 Urine Color Yellow Urine Clarity Clear Urine pH 6.0 Ur Specific [place] 1.010 Urine Protein Negative Urine Ketones 15 H Urine Blood Small H Urine Nitrite Negative Urine Bilirubin Negative Urine Urobilinogen 0.2 Ur Leukocyte Esterase Small H Urine RBC 5-10 H Urine WBC 10-20 H Ur Epithelial Cells Few Urine Crystals Negative Urine Bacteria Negative Urine Casts Negative Urine Mucus Negative Urine Other Few renal Ur Culture Indicated? Yes Urine Glucose Negative COVID-19 Source Nasal/nares Last Vital Signs Temp 36.6 C 06/23/20 15:17 Pulse 81 06/23/20 18:30 Resp 18 06/23/20 18:19 BP 113/54 L 06/23/20 18:30 Pulse Ox 95 06/23/20 18:40 COVID-19 Screening Have you, or household traveled for leisure in last 14 days?: No Had IN PERSON contact w/suspected or confirmed C-19 person: No
[2020-06-23] MEDS: Lactated Ringers 1,000 ML 125 ML IV (20:20)
[2020-06-23] MEDS: Normal Saline Flush 10 ML SYR IVP (20:21)
[2020-06-23] MEDS: Pantoprazole 40 MG VIAL IVP (20:21)
[2020-06-23] MEDS: metroNIDAZOLE 500 MG/100 ML BAG 100 MG IVPB (20:21)
[2020-06-23] MEDS: ACETAMINOPHEN 1,000 MG/100 ML BTL 400 MG IVPB (20:22)
[2020-06-23 20:29] LABS: COVID-19 PCR Negative (Negative)
[2020-06-23] MEDS: CIPROFLOXACIN 400 MG/200 ML BAG 200 MG IVPB (22:12)
[2020-06-24 03:08] VITALS: BP 108/70; PULSE 88; RESP 18; TEMP 36.6; O2SAT 95
[2020-06-24] MEDS: ACETAMINOPHEN 1,000 MG/100 ML BTL 400 MG IVPB ×3 (03:40→20:20)
[2020-06-24] MEDS: metroNIDAZOLE 500 MG/100 ML BAG 100 MG IVPB ×3 (03:41→20:22)
[2020-06-24 07:03] LABS: Abs Immature Grans 0.09 10^3/uL (0.0-0.06); Absolute Lymphocyte Count 1.02 10^3/uL (1.2-3.4); Absolute Monocyte Count 1.36 10^3/uL (0.1-0.8); Basophils % 0.3; Eosinophils % 0.4; HCT 37.8 % (36.0-46.0); HGB 12.1 g/dL (11.2-15.7); Immature Grans % 0.6; Lymphocytes % 6.5; MCH 28.5 pg (27.0-33.0); MCV 89.2 fL (80-95); MPV 10.3 fL (8.0-11.0); Monocytes % 8.7; Neutrophils % 83.5; Nucleated RBC 0 %; Platelet Count 205 10^3/uL (130-400); RBC 4.24 10^6/uL (3.93-5.22); RDW 15.7 % (11.7-14.6); RDW-SD 50.4 fL; WBC 15.68 10^3/uL (4.4-10.8)
[2020-06-24 07:09] LABS: Absolute Basophil Count 0.05 10^3/uL (0.0-0.2); Absolute Eosinophil Count 0.06 10^3/uL (0.0-0.7); Absolute Neutrophil Count 13.09 10^3/uL (1.2-6.7)
[2020-06-24 07:13] LABS: INR 1.1 (0.9-1.1); Prothrombin Time 11.1 sec (9.3-11.0)
[2020-06-24 07:23] LABS: ALT 17 U/L (14-59); AST 9 U/L (15-37); Albumin 2.6 g/dL (3.4-5.0); Alkaline Phosphatase 71 U/L (46-116); Anion Gap 8.3 mmol/L (3-11); BUN 12 mg/dL (7-18); Bilirubin, Total 1.1 mg/dL (0.2-1.0); CO2 26.7 mmol/L (21.0-32.0); CREATININE 1.2 mg/dL (0.55-1.02); Calcium 8.9 mg/dL (8.5-10.1); Chloride 106 mmol/L (98-107); Estimated GFR 43.91 (mL/min/1.73m2); Glucose 99 mg/dL (74-106); Potassium 4.1 mmol/L (3.5-5.1); Sodium 141 mmol/L (136-145); Total Protein 6.1 g/dL (6.4-8.2)
--- NOTE | 2020-06-24 07:30 | PGE_ITS ---
Date of Service Date of service: 06/24/20 Time of Service: 07:30 Assessment and Plan Assessment and plan (1) Diverticulitis of intestine with abscess: Status: Acute Assessment and plan: Continue IV antibiotics, pain management, GI and DVT prophylaxis and supportive care. Awaiting to hear back from [facility] diagnostic imaging, to determine if she is a candidate for drain placement. She will remain NPO. Encouraged activity as tolerated. (2) Hiatal hernia with GERD: Status: Acute (3) Lung nodule seen on imaging study: Status: Acute (4) Aortic atherosclerosis: Status: Acute Subjective Subjective Interval history since last seen: Bryanna denies any pain at this time, stating that the Tylenol is helping. She expresses that she is hungry. Denies any fevers or chills. Exam Const General: cooperative, healthy appearing and comfortable Orientation: alert and oriented x3 Resp Effort & Inspection: normal respiratory effort, no audible wheezes and no cough Objective Last Vital Signs Temp 36.6 C 06/24/20 03:08 Pulse 88 06/24/20 03:08 Resp 18 06/24/20 03:08 BP 108/70 06/24/20 03:08 Pulse Ox 95 06/24/20 03:08 Laboratory Results - last 24 hr 06/23/20 06/23/20 06/23/20 15:44 15:44 15:44 WBC 15.56 H RBC 4.85 Hgb 14.0 Hct 43.0 MCV 88.7 MCH 28.9 MCHC 32.6 RDW 15.5 H Plt Count 241 MPV 10.1 Immature Gran % 0.4 Neutrophils % 82.0 Lymphocytes % 8.2 Monocytes % 8.9 Eosinophils % 0.2 Basophils % 0.3 Nucleated RBC % 0 Absolute Neutrophils 12.76 H Absolute Lymphocytes 1.28 Absolute Monocytes 1.38 H Absolute Eosinophils 0.03 Absolute Basophils 0.05 PT 10.5 INR 1.0 APTT 26.5 Sodium 139 Potassium 4.1 Chloride 102 Carbon Dioxide 28.1 Anion Gap 8.9 BUN 16 Creatinine 1.1 H Estimated GFR/1.73 m2 48.55 Glucose 114 H Calcium 9.6 Total Bilirubin 1.2 H Conjugated Bilirubin 0.3 H AST 12 L ALT 28 Alkaline Phosphatase 85 Total Protein 7.5 Albumin 3.4 Lipase Urine Color Urine Clarity Urine pH Ur Specific [place] Urine Protein Urine Ketones Urine Blood Urine Nitrite Urine Bilirubin Urine Urobilinogen Ur Leukocyte Esterase Urine RBC Urine WBC Ur Epithelial Cells Urine Crystals Urine Bacteria Urine Casts Urine Mucus Urine Other Ur Culture Indicated? Urine Glucose COVID-19 Source SARS-CoV-2 (PCR) 06/23/20 06/23/20 06/23/20 15:44 16:48 18:28 WBC RBC Hgb Hct MCV MCH MCHC RDW Plt Count MPV Immature Gran % Neutrophils % Lymphocytes % Monocytes % Eosinophils % Basophils % Nucleated RBC % Absolute Neutrophils Absolute Lymphocytes Absolute Monocytes Absolute Eosinophils Absolute Basophils PT INR APTT Sodium Potassium Chloride Carbon Dioxide Anion Gap BUN Creatinine Estimated GFR/1.73 m2 Glucose Calcium Total Bilirubin Conjugated Bilirubin AST ALT Alkaline Phosphatase Total Protein Albumin Lipase 53 Urine Color Yellow Urine Clarity Clear Urine pH 6.0 Ur Specific [place] 1.010 Urine Protein Negative Urine Ketones 15 H Urine Blood Small H Urine Nitrite Negative Urine Bilirubin Negative Urine Urobilinogen 0.2 Ur Leukocyte Esterase Small H Urine RBC 5-10 H Urine WBC 10-20 H Ur Epithelial Cells Few Urine Crystals Negative Urine Bacteria Negative Urine Casts Negative Urine Mucus Negative Urine Other Few renal Ur Culture Indicated? Yes Urine Glucose Negative COVID-19 Source Nasal/nares SARS-CoV-2 (PCR) Negative 06/24/20 06/24/20 06/24/20 06:40 06:40 06:40 WBC 15.68 H RBC 4.24 Hgb 12.1 Hct 37.8 MCV 89.2 MCH 28.5 MCHC 32.0 RDW 15.7 H Plt Count 205 MPV 10.3 Immature Gran % 0.6 Neutrophils % 83.5 Lymphocytes % 6.5 Monocytes % 8.7 Eosinophils % 0.4 Basophils % 0.3 Nucleated RBC % 0 Absolute Neutrophils 13.09 H Absolute Lymphocytes 1.02 L Absolute Monocytes 1.36 H Absolute Eosinophils 0.06 Absolute Basophils 0.05 PT 11.1 H INR 1.1 APTT Sodium 141 Potassium 4.1 Chloride 106 Carbon Dioxide 26.7 Anion Gap 8.3 BUN 12 Creatinine 1.2 H Estimated GFR/1.73 m2 43.91 Glucose 99 Calcium 8.9 Total Bilirubin 1.1 H Conjugated Bilirubin AST 9 L ALT 17 Alkaline Phosphatase 71 Total Protein 6.1 L Albumin 2.6 L Lipase Urine Color Urine Clarity Urine pH Ur Specific [place] Urine Protein Urine Ketones Urine Blood Urine Nitrite Urine Bilirubin Urine Urobilinogen Ur Leukocyte Esterase Urine RBC Urine WBC Ur Epithelial Cells Urine Crystals Urine Bacteria Urine Casts Urine Mucus Urine Other Ur Culture Indicated? Urine Glucose COVID-19 Source SARS-CoV-2 (PCR)
[2020-06-24] MEDS: Lactated Ringers 1,000 ML 125 ML IV (07:43)
[2020-06-24 08:16] VITALS: BP 101/57; PULSE 72; RESP 16; TEMP 36.7; O2SAT 95
[2020-06-24] MEDS: CIPROFLOXACIN 400 MG/200 ML BAG 200 MG IVPB ×2 (09:29→21:50)
--- NOTE | 2020-06-24 10:32 | PDOC.CMIN ---
- If Service Date Differs Date of service: 06/24/20 Time of Service: 10:32 Care Management Initial Assess REASON FOR HOSPITALIZATION:: Diverticulitis with abscess PAST MEDICAL HISTORY/PAST SURGICAL HISTORY:: Medical History. Anxiety (12/08/14). Atrophic vaginitis (06/17/14). Diverticulosis of colon without diverticulitis. Elevated random blood glucose level (08/03/14). History of tobacco use. Lichen sclerosus et atrophicus of the vulva (06/30/15). Low back pain (01/19/06). DDD L5-S1. Neck pain. C5-6 disc space narrowing. Osteopenia. T-2.01/-1.6/-1.7. Right hip pain (05/30/17). Urinary incontinence (06/17/14). Vitamin D deficiency (06/09/17). Surgical History. Appendectomy. Arthroplasty of knee (~05/2009). right knee torn medial and lateral meniscus; Meniscectomy and chonfroplasty of. medial femoral condyle. Ligation of fallopian tube PREVIOUS FUNCTIONAL STATUS/SOCIAL/FAMILY SUPPORTS:: Bryanna lives with her , Corey in [place]. They have four children, and several grand children. 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 She is independent at baseline. CURRENT FUNCTIONAL STATUS:: Bryanna was lying in bed when CM met with her, and her was in the room visiting. She reported that she hasn't seen the MD yet today, but she did see the PA this morning, who reported that she would likely go to [facility] for a procedure, but they are waiting to hear back from [facility]. Later, per report, it states that she will not be transferred, but instead will be treated with IV ABX and will have a CT scan in a few days. She was able to have clear liquids, which she was happy about. CM will continue to follow. ADVANCE DIRECTIVES:: None on file. CM will offer forms. Has patient been provided with info about the portal/API?: Yes Did the patient sign up for the portal?: No CODE STATUS:: Full Code INSURANCE COVERAGE / FINANCIAL ISSUES:: [facility] medicare replacement/ [employer] CURRENT HOME/COMMUNITY SERVICES/EQUIPMENT:: No current services or equipment. PRIMARY CARE PHYSICIAN:: Nara Contreras POTENTIAL DISCHARGE NEEDS:: Follow up appointments PATIENT/FAMILY EDUCATION NEEDS:: Review discharge instructions regarding activity levels and medications, discussion of self care needs. ANTICIPATED BARRIERS TO DISCHARGE:: None identified. TRANSPORTATION:: Via private vehicle by her . PLAN:: Anticipate Ashley will return home when medically cleared. Her will drive her home via private vehicle. She will follow up with her PCP and discharge plan of care. CM will continue to follow.
[2020-06-24 15:26] VITALS: BP 111/66; PULSE 77; RESP 18; TEMP 37.1; O2SAT 95
[2020-06-24] MEDS: Lactated Ringers 1,000 ML 75 ML IV (16:04)
[2020-06-24] MEDS: Normal Saline Flush 10 ML SYR IVP (20:21)
[2020-06-24] MEDS: Pantoprazole 40 MG VIAL IVP (20:21)
[2020-06-24 23:19] VITALS: BP 101/68; PULSE 79; RESP 16; TEMP 36.6; O2SAT 94
[2020-06-25] MEDS: metroNIDAZOLE 500 MG/100 ML BAG 100 MG IVPB ×3 (03:18→20:24)
[2020-06-25] MEDS: ACETAMINOPHEN 1,000 MG/100 ML BTL 400 MG IVPB ×3 (03:18→20:17)
[2020-06-25 06:34] LABS: Abs Immature Grans 0.07 10^3/uL (0.0-0.06); Absolute Basophil Count 0.04 10^3/uL (0.0-0.2); Absolute Eosinophil Count 0.19 10^3/uL (0.0-0.7); Absolute Monocyte Count 1.08 10^3/uL (0.1-0.8); Absolute Neutrophil Count 11.32 10^3/uL (1.2-6.7); Basophils % 0.3; Eosinophils % 1.4; HCT 36.8 % (36.0-46.0); HGB 11.7 g/dL (11.2-15.7); Immature Grans % 0.5; Lymphocytes % 7.3; MCH 28.5 pg (27.0-33.0); MCHC 31.8 % (32.0-36.0); MCV 89.5 fL (80-95); MPV 10.4 fL (8.0-11.0); Monocytes % 7.9; Neutrophils % 82.6; Nucleated RBC 0 %; Platelet Count 206 10^3/uL (130-400); RBC 4.11 10^6/uL (3.93-5.22); RDW 15.6 % (11.7-14.6); RDW-SD 50.1 fL
--- NOTE | 2020-06-25 07:27 | W.PM.PROGNOT ---
Documented by User: MICHAEL Kowalski 06/25/20 07:30 Date of Service Date of service: 06/25/20 Time of Service: 07:00 Assessment and Plan Assessment and plan (1) Diverticulitis of intestine with abscess: Status: Acute Assessment and plan: She is tolerating the clear liquids. (+) Flatus, No BM Pain is currently well controlled. Encouraged activity as tolerated. Continue use of incentive spirometer. Continue IV antibiotics, pain management, GI and DVT prophylaxis and supportive care. (2) Hiatal hernia with GERD: Status: Acute (3) Lung nodule seen on imaging study: Status: Acute (4) Aortic atherosclerosis: Status: Acute Subjective Subjective Interval history since last seen: Patient reports that she is feeling well. LLQ abdominal pain, that is sore. She denies any fever, chills or night sweats. She has not had a BM. Exam Const General: cooperative and comfortable Orientation: alert and awake Resp Effort & Inspection: normal respiratory effort, no audible wheezes and no cough GI Inspection: normal to inspection and non-distended Palpation: soft, no guarding and tender in the LLQ Objective Last Vital Signs Temp 36.6 C 06/24/20 23:19 Pulse 79 06/24/20 23:19 Resp 16 06/24/20 23:19 BP 101/68 06/24/20 23:19 Pulse Ox 94 06/24/20 23:19 Laboratory Results - last 24 hr 06/25/20 06:15 WBC 13.70 H RBC 4.11 Hgb 11.7 Hct 36.8 MCV 89.5 MCH 28.5 MCHC 31.8 L RDW 15.6 H Plt Count 206 MPV 10.4 Immature Gran % 0.5 Neutrophils % 82.6 Lymphocytes % 7.3 Monocytes % 7.9 Eosinophils % 1.4 Basophils % 0.3 Nucleated RBC % 0 Absolute Neutrophils 11.32 H Absolute Lymphocytes 1.00 L Absolute Monocytes 1.08 H Absolute Eosinophils 0.19 Absolute Basophils 0.04 Documented by User: Sloan Avila MD 06/25/20 14:05
[2020-06-25 08:01] VITALS: BP 127/77; PULSE 72; RESP 17; TEMP 36.5; O2SAT 96
[2020-06-25] MEDS: CIPROFLOXACIN 400 MG/200 ML BAG 200 MG IVPB ×2 (10:29→21:38)
[2020-06-25] MEDS: Lactated Ringers 1,000 ML 75 ML IV (10:29)
--- NOTE | 2020-06-25 11:56 | W.NUTRFU ---
Date of service: 06/25/20 Time of Service: 11:56 Nutritional Follow up NOTE: 74 year old admitted with diverticulitis with hx of atherosclerosis. BMI wnl for age. Diet advanced to clears- tolerating. Will continue to follow. Does not appear at nutritional risk. Provided diet education on diverticulitis/diverticulosis. Time Spent in Nutritional Counseling and Treatment: 10
--- NOTE | 2020-06-25 14:45 | CHAPLAIN ---
Bryanna was up in chair when I visited. I explained my role and offered support. She was not interested in a longer visit.
--- NOTE | 2020-06-25 15:19 | CMPROGNOTE_ITS ---
- If Service Date Differs Date of service: 06/25/20 Time of Service: 15:19 Care Management Progress Note S/O: Bryanna was sitting up in bed when CM met with her. She reported that she is feeling much better today. She stated that per MD, she would remain at [facility] for IV abx, and would have a repeat CT scan tomorrow to see if her abscess is responding to the abx. She reported that she is comfortable, and was able to walk around yesterday, and had a BM today. She was pleasant and engaged in conv ersation. CM will continue to follow. A: Bryanna is a 74 year old female admitted to [facility] on 06/23/20 with diverticulitis with abscess. P: Anticipate Ashley will return home when medically cleared. Her will drive her home via private vehicle. She will follow up with her PCP and discharge plan of care. CM will continue to follow.
[2020-06-25 15:29] VITALS: BP 123/82; PULSE 69; RESP 17; TEMP 36.8; O2SAT 94
[2020-06-25] MEDS: Normal Saline Flush 10 ML SYR IVP (20:15)
[2020-06-25] MEDS: Pantoprazole 40 MG VIAL IVP (20:16)
[2020-06-25 23:23] VITALS: BP 124/80; PULSE 69; RESP 17; TEMP 36.6; O2SAT 96
[2020-06-26 00:15] VITALS: BP 117/62; PULSE 74; RESP 16; TEMP 36.3; O2SAT 94
[2020-06-26] MEDS: ACETAMINOPHEN 1,000 MG/100 ML BTL 400 MG IVPB ×3 (03:20→20:33)
[2020-06-26] MEDS: metroNIDAZOLE 500 MG/100 ML BAG 100 MG IVPB ×3 (03:23→21:22)
[2020-06-26 06:50] LABS: ALT 16 U/L (14-59); AST 11 U/L (15-37); Abs Immature Grans 0.03 10^3/uL (0.0-0.06); Absolute Basophil Count 0.03 10^3/uL (0.0-0.2); Absolute Eosinophil Count 0.27 10^3/uL (0.0-0.7); Absolute Lymphocyte Count 0.99 10^3/uL (1.2-3.4); Absolute Monocyte Count 0.85 10^3/uL (0.1-0.8); Albumin 2.4 g/dL (3.4-5.0); Alkaline Phosphatase 75 U/L (46-116); Anion Gap 7.6 mmol/L (3-11); BUN 8 mg/dL (7-18); Basophils % 0.3; Bilirubin, Total 0.4 mg/dL (0.2-1.0); CO2 27.4 mmol/L (21.0-32.0); Calcium 8.9 mg/dL (8.5-10.1); Chloride 108 mmol/L (98-107); Eosinophils % 2.5; Glucose 114 mg/dL (74-106); HCT 37.3 % (36.0-46.0); HGB 11.8 g/dL (11.2-15.7); Immature Grans % 0.3; Lymphocytes % 9.1; MCH 28.4 pg (27.0-33.0); MCHC 31.6 % (32.0-36.0); MCV 89.7 fL (80-95); MPV 10.5 fL (8.0-11.0); Monocytes % 7.8; Nucleated RBC 0 %; Platelet Count 245 10^3/uL (130-400); Potassium 3.7 mmol/L (3.5-5.1); RBC 4.16 10^6/uL (3.93-5.22); RDW 15.8 % (11.7-14.6); RDW-SD 51.1 fL; Sodium 143 mmol/L (136-145); WBC 10.91 10^3/uL (4.4-10.8)
[2020-06-26 06:54] LABS: Absolute Neutrophil Count 8.73 10^3/uL (1.2-6.7)
[2020-06-26 07:48] VITALS: BP 126/69; PULSE 70; RESP 20; TEMP 36.5; O2SAT 94
[2020-06-26] MEDS: CIPROFLOXACIN 400 MG/200 ML BAG 200 MG IVPB ×2 (09:30→22:38)
[2020-06-26] MEDS: Normal Saline Flush 10 ML SYR IVP ×3 (09:32→20:33)
--- NOTE | 2020-06-26 10:49 | PGE_ITS ---
Date of Service Date of service: 06/26/20 Time of Service: 10:49 Assessment and Plan Assessment and plan (1) Diverticulitis of intestine with abscess: Status: Acute Assessment and plan: Hospital Day #4 for treatment of acute diverticulitis with small abscess. Pt is doing well overall. She remains afebrile, and her leukocytosis is nearly resolved. Will repeat CT scan tomorrow to evaluate abscess Continue IV antibiotics, pain management, GI and DVT prophylaxis, and supportive care. (2) Hiatal hernia with GERD: Status: Acute (3) Lung nodule seen on imaging study: Status: Acute (4) Aortic atherosclerosis: Status: Acute Subjective Subjective Patient reports: no new complaints, feels better, still having pain, tolerating liquids well, flatus, bowel movement and afebrile Interval history since last seen: The patient is doing well. Her pain is decreased overall, but still with some soreness in the LLQ. She is tolerating full liquid diet without nausea or increase in pain. Feels a lot of bowel rumbling. Had one soft stool this morning. Has been ambulating well out of bed. Exam Const General: cooperative, healthy appearing, comfortable and no acute distress Nutritional Appearance: average body habitus and well nourished Orientation: alert, awake and oriented x3 [facility] Head: normocephalic and No periorbital ecchymosis Eyes Other: no scleral icterus Neck Neck: normal visual inspection, supple and no JVD Resp Effort & Inspection: normal respiratory effort, able to speak in complete sentences, not labored and no respiratory distress Cardio Rate: regular rate Heart Sounds: S1 normal and S2 normal GI Inspection: normal to inspection and non-distended Palpation: soft, no guarding and tender in the LLQ Skin General skin exam: rashes and/or lesions noted, turgor normal and no jaundice Hair: normal Neuro General: patient alert, patient awake and patient oriented x3 Cognition: normal cognition Speech: speech normal Extrem General: normal to inspection and no calf tenderness Psych Appearance: grossly normal Mental Status: mental status grossly normal Speech and Movement: speech and movement normal Mood: congruent mood Affect: normal affect Attitude: cooperative Thought Process: normal Thought Content: normal Insight: insight good Judgment: judgment good Objective Last Vital Signs Temp 97.7 F 06/26/20 07:48 Pulse 70 06/26/20 07:48 Resp 20 06/26/20 07:48 BP 126/69 06/26/20 07:48 Pulse Ox 94 06/26/20 07:48 Laboratory Results - last 24 hr 06/26/20 06/26/20 06:20 06:20 WBC 10.91 H RBC 4.16 Hgb 11.8 Hct 37.3 MCV 89.7 MCH 28.4 MCHC 31.6 L RDW 15.8 H Plt Count 245 MPV 10.5 Immature Gran % 0.3 Neutrophils % 80.0 Lymphocytes % 9.1 Monocytes % 7.8 Eosinophils % 2.5 Basophils % 0.3 Nucleated RBC % 0 Absolute Neutrophils 8.73 H Absolute Lymphocytes 0.99 L Absolute Monocytes 0.85 H Absolute Eosinophils 0.27 Absolute Basophils 0.03 Sodium 143 Potassium 3.7 Chloride 108 H Carbon Dioxide 27.4 Anion Gap 7.6 BUN 8 Creatinine 1.0 Estimated GFR/1.73 m2 54.20 Glucose 114 H Calcium 8.9 Total Bilirubin 0.4 AST 11 L ALT 16 Alkaline Phosphatase 75 Total Protein 6.0 L Albumin 2.4 L
--- NOTE | 2020-06-26 16:11 | CMPROGNOTE_ITS ---
- If Service Date Differs Date of service: 06/26/20 Time of Service: 16:11 Care Management Progress Note S/O: Bryanna was sitting up in bed when CM met with her. She was very pleasant and engaged in conversation, as usual. She stated that her will return to visit during visiting hours today, which she is grateful for. She reported that she is feeling much better today, and the only pain she has now is when she is having gas or a bowel movement. Per MD, she will remain on IV abx overnight, and will have a repeat CT scan tomorrow. Bryanna is hoping to return home by Monday, as she would like to celebrate Mother's day with her family. CM will continue to follow. A: Bryanna is a 74 year old female admitted to [facility] on 06/23/20 with diverticulitis with abscess. P: Anticipate Ashley will return home when medically cleared. Her will drive her home via private vehicle. She will follow up with her PCP and discharge plan of care. CM will continue to follow.
[2020-06-26 16:18] VITALS: BP 125/80; PULSE 78; RESP 17; TEMP 36.8; O2SAT 97
[2020-06-26 20:29] VITALS: BP 124/80; PULSE 75; RESP 18; TEMP 37.7; O2SAT 95
[2020-06-26] MEDS: Pantoprazole 40 MG VIAL IVP (20:32)
[2020-06-26 23:06] VITALS: BP 128/76; PULSE 68; RESP 18; TEMP 36.4; O2SAT 94
[2020-06-27] MEDS: ACETAMINOPHEN 1,000 MG/100 ML BTL 400 MG IVPB ×2 (04:00→11:37)
[2020-06-27] MEDS: Normal Saline Flush 10 ML SYR IVP ×3 (04:00→11:37)
[2020-06-27] MEDS: metroNIDAZOLE 500 MG/100 ML BAG 100 MG IVPB ×2 (05:05→11:37)
[2020-06-27 07:00] LABS: Abs Immature Grans 0.05 10^3/uL (0.0-0.06); Absolute Basophil Count 0.05 10^3/uL (0.0-0.2); Absolute Eosinophil Count 0.37 10^3/uL (0.0-0.7); Absolute Lymphocyte Count 1.31 10^3/uL (1.2-3.4); Absolute Monocyte Count 0.84 10^3/uL (0.1-0.8); Absolute Neutrophil Count 8.11 10^3/uL (1.2-6.7); Basophils % 0.5; Eosinophils % 3.4; HCT 39.6 % (36.0-46.0); HGB 12.6 g/dL (11.2-15.7); Immature Grans % 0.5; Lymphocytes % 12.2; MCH 28.6 pg (27.0-33.0); MCHC 31.8 % (32.0-36.0); MPV 9.9 fL (8.0-11.0); Monocytes % 7.8; Neutrophils % 75.6; Nucleated RBC 0 %; Platelet Count 298 10^3/uL (130-400); RDW 15.7 % (11.7-14.6); RDW-SD 51.7 fL; WBC 10.73 10^3/uL (4.4-10.8)
[2020-06-27 07:51] VITALS: BP 142/77; PULSE 70; RESP 18; TEMP 36.6; O2SAT 96
[2020-06-27] MEDS: Omnipaque 350 MG/ML 100 ML BTL IJ ×2 (08:21→08:22)
[2020-06-27] MEDS: Normal Saline - Diluent 50 ML VIAL IV (08:21)
[2020-06-27] MEDS: Breeza Beverage 473 ML BTL PO (08:22)
--- NOTE | 2020-06-27 08:22 | DI.CT_ITS ---
Exam(s) CT ABDOMEN PELVIS W EXAM: CT ABDOMEN PELVIS W CLINICAL HISTORY: evaluate diverticular abscess. TECHNIQUE: Imaging Protocol: Axial computed tomography images with coronal and sagittal reformatted images were created and reviewed CONTRAST MATERIAL: Intravenous: Omnipaque 100cc Oral: Yes COMPARISON: CT CT ABDOMEN PELVIS W from 06/23/2020 FINDINGS: VISUALIZED LUNG BASES: Chronic interstitial disease. There also few nodules in the lung bases again noted. The largest of these is in the lateral basal segment of the right lower lobe and measures 9 x 6 millimeters.. ABDOMEN: There is no ascites. LIVER: There is a well-defined density in the left hepatic lobe measuring 1.2 by 1.0 cm and having be nign appearance although somewhat higher density than a typical cyst. Follow-up ultrasound recommend ed. Area of hypodensity in the medial aspect of the right hepatic lobe adjacent to the inter hemisph maureen fissure is again noted. No dilatation of intrahepatic ducts. GALLBLADDER/BILIARY: No obvious gallbladder pathology. CBD is not dilated. PANCREAS: No evidence of pancreatic mass nor dilatation of the pancreatic duct. SPLEEN: Spleen is not enlarged. No obvious intrasplenic lesions. Splenic and portal veins are paten t. ADRENALS: There are no new significant adrenal masses. KIDNEYS:Small 6 millimeter benign cyst in the superior pole the left kidney. No solid renal masses. No calculi nor hydronephrosis.. ABDOMINAL AORTA: Atherosclerotic abdominal aorta with infrarenal abdominal aortic aneurysm again note d. This exhibits maximum diameter 3 cm. No arterial megaly seen in the iliac arteries. LYMPH NODES:There is no retroperitineal nor paraaortic adenopathy. ABDOMINAL WALL/GI: No evidence of significant anterior abdominal wall hernia. . PELVIS: GI: No evidence of appendicitis.Again noted is evidence of extensive sigmoid diverticulosis with supe rimposed diverticulitis and abscess. The size of the abscess has increased, presently measuring 6 cm wide by 4 cm AP by 3.2 cm cephalocaudal.The inflammation associated with this abscess involves the u terus and left adnexa. There is no gas is seen within the nondistended urinary bladder at this time. LYMPH NODES: There is no intrapelvic nor inguinal adenopathy. REPRODUCTIVE: As above. URINARY BLADDER: No calculi nor obvious masses evident. No gas therein OSSEOUS: No significant osseous lesions. IMPRESSION: 1. Compared to the recent CT scan of 06/23/2020 there is again noted severe acute sigmoid diverticuli tis superimposed on extensive diverticulosis. The size of the associated deep pelvis abscess has sig nificantly increased, presently measuring 6 cm wide by 4 cm AP x 3.2 cm cephalocaudal. The abscess a ppears to also involve the left adnexal region including region of the left ovary. There is no gas i n the nondistended urinary bladder to suggest fistulous communication. 2. There is a 12 x 10 millimeter cystic structure in the left hepatic lobe which exhibits Hounsfield unit measurements slightly higher than a simple cyst. Does not have the appearance of a typical absc ess at this time but will require appropriate follow-up. 3. Calcified and atherosclerotic abdominal aorta with infrarenal abdominal aortic aneurysm exhibiting maximum external diameter 3 cm. Study first read by [facility]. RADIATION DOSE DELIVERED: 856.3mGy.cm Total DLP DATA REPOSITORY: All CT scans at this facility are submitted to the National Radiology Data Registry (NRDR) Dose Index Registry (DIR) with the [employer] (ACR). RADIATION OPTIMIZATION: All CT scans at this facility use at least one of these dose optimization te chniques: automated exposure control; mA and/or kV adjustment per patient size (includes targeted exa ms where dose is matched to clinical indication); or iterative reconstruction.
--- NOTE | 2020-06-27 09:30 | DI.VRAD_ITS ---
Addendum created by Jo Ann Sosa MD on 06/27/2020 9:46:36 AM EDT: THIS REPORT CONTAINS FINDINGS THAT MAY BE CRITICAL TO PATIENT CARE. The findings were verbally communicated via telephone conference with Sloan Avila at 9:46 AM EDT on 06/27/2020. The findings were acknowledged and understood. Initial report created on 06/27/2020 9:29:56 AM EDT: PROCEDURE INFORMATION: Exam: CT Abdomen And Pelvis With Contrast Exam date and time: 06/27/2020 8:13 AM Age: 74 years old Clinical indication: Other: Evaluate diverticular abscess; Additional info: Po and iv contrast used TECHNIQUE: Imaging protocol: Computed tomography of the abdomen and pelvis with contrast. Radiation optimization: All CT scans at this facility use at least one of these dose optimization techniques: automated exposure control; mA and/or kV adjustment per patient size (includes targeted exams where dose is matched to clinical indication); or iterative reconstruction. Contrast material: OMNIPAQUE 350; Contrast volume: 100 ml; Contrast route: INTRAVENOUS (IV); COMPARISON: CT ABDOMEN PELVIS W 06/23/2020 4:30 PM FINDINGS: Lungs: 7.7 mm pulmonary nodule in the right lower lobe. Additional smaller pulmonary nodules in both lower lobes. Liver: 13 mm simple cyst anterior liver 11 mm nodule left lobe of the liver. Thirty-five Hounsfield units. Subcentimeter low attenuation area in the liver is too small for characterization. Gallbladder and bile ducts: Normal. No calcified stones. No ductal dilation. Pancreas: Pancreatic atrophy Spleen: Normal. No splenomegaly. Adrenal glands: Normal. No mass. Kidneys and ureters: Subcentimeter low attenuation areas in the left kidney are too small for characterization. Stomach and bowel: Diverticulosis and Bowel wall thickening along the rectosigmoid colon. Mild pericolonic inflammatory changes. No evidence of perforation or bleeding. Findings consistent with acute diverticulitis. The diverticular abscess has increased in size. Maximum dimension on June 23 was 34 mm. Today the abscess measures 5.8 by 3 cm. Appendix: No evidence of appendicitis. Intraperitoneal space: Unremarkable. No free air. No significant fluid collection. Vasculature: Unremarkable. No abdominal aortic aneurysm. Lymph nodes: Unremarkable. No enlarged lymph nodes. Urinary bladder: Unremarkable as visualized. Reproductive: Unremarkable as visualized. Bones/joints: Unremarkable. No acute fracture. Soft tissues: Unremarkable. IMPRESSION: 1. Diverticulosis and Bowel wall thickening along the rectosigmoid colon. Mild pericolonic inflammatory changes. No evidence of perforation or bleeding. Findings consistent with acute diverticulitis. 2. The diverticular abscess has increased in size. Maximum dimension on June 23 was 34 mm. Today the abscess measures 5.8 by 3 cm. 3. 7.7 mm pulmonary nodule in the right lower lobe. Additional smaller pulmonary nodules in both lower lobes. 4. 11 mm nodule left lobe of the liver. Thirty-five Hounsfield units. Dictated and Authenticated by: Jo Ann Sosa MD. Ordering:TRISTEN Lisa MD
[2020-06-27] MEDS: CIPROFLOXACIN 400 MG/200 ML BAG 200 MG IVPB (10:14)
--- NOTE | 2020-06-27 11:51 | W.PM.PROGNOT ---
Date of Service Date of service: 06/27/20 Time of Service: 11:51 Assessment and Plan Assessment and plan (1) Diverticulitis of intestine with abscess: Status: Acute Assessment and plan: Hospital Day #5 for treatment of acute diverticulitis with abscess. Overall, pt is feeling well, is non-toxic, but is having increasing diarrhea. Repeat CT abd/pel this morning revealed that the diverticular abscess has grown in size from 3.5 x 1.5cm to 5.8 x 3cm. This was discussed and reviewed with [facility] radiologist, Dr. Sosa. A consult to [facility] Interventional Radiology has been made through the transfer center for possible drainage. Awaiting callback. Will keep NPO and restart IV fluids until a response is obtained. Continue IV antibiotics, pain management, GI and DVT prophylaxis, and supportive care. (2) Hiatal hernia with GERD: Status: Acute (3) Lung nodule seen on imaging study: Status: Acute (4) Aortic atherosclerosis: Status: Acute Subjective Subjective Patient reports: no new complaints, still having pain, tolerating liquids well and diarrhea Interval history since last seen: The patient is feeling well this morning with decreased pain, but has had multiple episodes of diarrhea. She denies nausea, and is hungry as she has been NPO for a surveillance CT abd/pel this morning. Otherwise, she has been voiding well, and ambulating. Exam Const General: cooperative, healthy appearing, comfortable and no acute distress Nutritional Appearance: average body habitus and well nourished Orientation: alert and oriented x3 HENMT Head: atraumatic and no raccoon eyes General nose exam: external nose normal Eyes Other: no scleral icterus Neck Neck: normal visual inspection and supple Resp Effort & Inspection: normal respiratory effort, able to speak in complete sentences, no grunting and not labored GI Palpation: soft, no guarding, not rigid and tender in the LLQ Other: minimal suprapubic tenderness Skin General skin exam: no rashes or lesions noted Other: warm, dry Neuro General: patient alert, patient awake and patient oriented x3 Cognition: normal cognition Speech: speech normal Other: no focal deficits noted Extrem Other: IV was moved back to right hand. Very minimal swelling to left hand where previous IV was placed. Psych Appearance: grossly normal Mental Status: mental status grossly normal Speech and Movement: speech and movement normal Mood: congruent mood Affect: normal affect Attitude: cooperative Thought Process: normal Thought Content: normal Insight: insight good Judgment: judgment good Objective Last Vital Signs Temp 97.9 F 06/27/20 07:51 Pulse 70 06/27/20 07:51 Resp 18 06/27/20 07:51 BP 142/77 H 06/27/20 07:51 Pulse Ox 96 06/27/20 07:51 Laboratory Results - last 24 hr 06/27/20 06:32 WBC 10.73 RBC 4.40 Hgb 12.6 Hct 39.6 MCV 90.0 MCH 28.6 MCHC 31.8 L RDW 15.7 H Plt Count 298 MPV 9.9 Immature Gran % 0.5 Neutrophils % 75.6 Lymphocytes % 12.2 Monocytes % 7.8 Eosinophils % 3.4 Basophils % 0.5 Nucleated RBC % 0 Absolute Neutrophils 8.11 H Absolute Lymphocytes 1.31 Absolute Monocytes 0.84 H Absolute Eosinophils 0.37 Absolute Basophils 0.05 Objective Narrative Objective Narrative: CT ABD/PEL (06/27/20): IMPRESSION: 1. Diverticulosis and Bowel wall thickening along the rectosigmoid colon. Mild pericolonic inflammatory changes. No evidence of perforation or bleeding. Findings consistent with acute diverticulitis. 2. The diverticular abscess has increased in size. Maximum dimension on June 23 was 34 mm. Today the abscess measures 5.8 by 3 cm. 3. 7.7 mm pulmonary nodule in the right lower lobe. Additional smaller pulmonary nodules in both lower lobes. 4. 11 mm nodule left lobe of the liver. Thirty-five Hounsfield units.
--- NOTE | 2020-06-27 12:08 | PDOC.CMPRO ---
- If Service Date Differs Date of service: 06/27/20 Time of Service: 12:08 Care Management Progress Note S/O: Bryanna is sitting in a chair watching television when CM comes to meet with her. Her , Corey, is present in the room. Bryanna reports that she's been better. She states the provider informed her that the abscess is getting bigger and she will need to go to [facility] to have it drained. She remains NPO while awaiting the down and back to [facility] and shares that she is starving. Bryanna was hoping to be home for Mother's Day, but is accepting of the fact that she will need to remain at [facility] a little longer. A: Bryanna is a 74 year old female admitted to [facility] on 06/23/20 with diverticulitis with abscess. P: Plan remains for Ashley to return home when medically cleared. Her will drive her home via private vehicle. She will follow up with her PCP and discharge plan of care. CM will continue to follow.
[2020-06-27 15:05] VITALS: BP 147/80; PULSE 83; RESP 20; TEMP 36.8; O2SAT 97
--- NOTE | 2020-06-27 15:28 | W.PM.DS.N ---
Date of service: 06/27/20 Time of Service: 15:30 DS: Diagnosis Discharge Diagnosis (1) Diverticulitis of intestine with abscess: Status: Acute Asessment and Plan: Pt has been slowly clinically improving, but still with lower abdominal tenderness to mild palpation. She has had multiple episodes of diarrhea today. Repeat CT scan this AM showed enlargement of pelvic abscess to 5.8 x3 cm after five days of IV ciprofloxacin and IV metronidazole. --consult called to [facility], they will to drain tomorrow --Transport Center helped to coordinate acceptance under Dr. Garcia, Colorectal Surgery (2) Hiatal hernia with GERD: Status: Acute (3) Lung nodule seen on imaging study: Status: Acute (4) Aortic atherosclerosis: Status: Acute Discharge Plan Disposition Patient Disposition: [facility] Condition: Stable Discharge Details Reason For Visit: DIVERTICULITIS WITH ABSCESS Admit Date/Time: 06/23/20 18:21 Admit Provider: Bing Pedraza Attending Provider: Bing Pedraza Primary Care Provider: Nara Contreras Hospital Course Hospital Course: The patient was admitted on 06/23/20 with persistent LLQ pain. In the ED, she underwent a clinical evaluation, and was found to have a leukocytosis of 15K, LLQ pain and tenderness, and a CT scan of the abdomen and pelvis that revealed a pelvic abscess of 3.5 x 1.5cm. She was admitted to the surgical service and started on IV cipro and metronidazole. A consult was called to [facility] for possible drainage, but they felt it was too small at the time. She was started on clear liquids and diet was slowly advanced to full liquids, which she is tolerating. Initially she was constipated, not having a bowel movement for nearly a week before she passed a stool on 06/25. She then passed some soft stools, and this morning complained of multiple loose stools. Today, on hospital day #5, she underwent a surveillance CT to evaluate the abscess, and it was larger, now measuring 5.8 x 3cm. Home Meds and New Rx's Prescriptions: No Action meloxicam 15 mg tablet 15 mg PO DAILY RF: 0 methotrexate sodium 2.5 mg tablet 15 mg PO QWEEK RF: 0 omeprazole 20 mg capsule,delayed release(DR/EC) 20 mg PO DAILY RF: 0 folic acid 1 mg tablet 1 mg PO DAILY RF: 0 rosuvastatin 5 mg tablet 5 mg PO QPM RF: 0 cholecalciferol (vitamin D3) [Vitamin D3] 50 mcg (2,000 unit) Tablet 50 mcg PO DAILY RF: 0 Discharge Instructions Instructions: Diverticulitis (DC) Care Plan Goals: Transfer to Interventional Radiology at [facility] [place] draingae of pelvic abscess Activity:: Activity as Tolerated Diet:: NPO for procedure Discharge Data Discharge Date/Time-TO BE ENTERED AT DEPARTURE: 06/27/20 15:46 Discharge Comment: Tranfer to [facility] [place] DS: Summary Time Spent with Patient providing and/or coordinating discharge services: Greater than 30 minutes Specific discharge activities: Transfer to [facility] [place]al [place]ology drainage of pelvic abscess Status at Discharge Functional status at discharge: independent ambulation Overall status at discharge: patient is not back to baseline Mental Status: mental status grossly normal Speech and Movement: speech and movement normal Mood: congruent mood Affect: normal affect Exam Psych Mental Status: mental status grossly normal Speech and Movement: speech and movement normal Mood: congruent mood Affect: normal affect DS: Data Vitals/I&O Vitals and I&O: Vital Signs Temperature 98.2 F 06/27/20 15:05 Temperature Source Tympanic 06/27/20 15:05 Pulse 83 06/27/20 15:05 Pulse Rhythm Regular 06/27/20 08:29 Respiratory Rate 20 06/27/20 15:05 Respiratory Effort Non-Labored 06/27/20 08:29 Respiratory Depth Normal 06/27/20 08:29 Respiratory Pattern Normal 06/27/20 08:29 Blood Pressure 147/80 H 06/27/20 15:05 Blood Pressure Mean 70 06/23/20 18:30 Blood Pressure Position Sitting 06/23/20 15:17 Pulse Oximetry 97 06/27/20 15:05 Oxygen Delivery Method Room Air 06/27/20 15:05 Oxygen Flow Rate 0 06/27/20 15:05 Pain Level 0 06/27/20 15:05 Intake & Output 06/26/20 06/27/20 06/27/20 23:59 11:59 23:59 Intake Total 1690 / 2783.75 310 / 310 Balance 1690 / 2333.75 310 / 310 Intake: IV 810 / 1553.75 310 / 310 Oral 880 / 1230 Other: Urine Color Yellow Yellow Urine Appearance Clear Clear Urine Odor Normal Normal Comment Patient reports normal urination in toilet. Stool Size Small Stool Characteristics Liquid Brown Voiding Methods Toilet Bedpan Data Completed and Pending Labs on day of discharge: Labs from last 24 hours 06/27/20 06:32 WBC 10.73 RBC 4.40 Hgb 12.6 Hct 39.6 MCV 90.0 MCH 28.6 MCHC 31.8 L RDW 15.7 H Plt Count 298 MPV 9.9 Immature Gran % 0.5 Neutrophils % 75.6 Lymphocytes % 12.2 Monocytes % 7.8 Eosinophils % 3.4 Basophils % 0.5 Nucleated RBC % 0 Absolute Neutrophils 8.11 H Absolute Lymphocytes 1.31 Absolute Monocytes 0.84 H Absolute Eosinophils 0.37 Absolute Basophils 0.05 PFSH Medical History Anxiety (12/08/14) Atrophic vaginitis (06/17/14) Diverticulosis of colon without diverticulitis Elevated random blood glucose level (08/03/14) History of tobacco use Lichen sclerosus et atrophicus of the vulva (06/30/15) Low back pain (01/19/06) DDD L5-S1 Neck pain C5-6 disc space narrowing Osteopenia T-2.01/-1.6/-1.7 Right hip pain (05/30/17) Urinary incontinence (06/17/14) Vitamin D deficiency (06/09/17) Surgical History Appendectomy Arthroplasty of knee (~05/2009) right knee torn medial and lateral meniscus; Meniscectomy and chonfroplasty of medial femoral condyle. Ligation of fallopian tube Family History Mother Diabetes Heart disease Father , PNEUMONIA at age 92. Heart disease Hyperlipidemia Sister Alcohol abuse Sister Heart disease Grandfather Heart disease Grandfather No problems noted. Grandmother Asthma Grandmother No problems noted. Sister Neoplasm LEUKEMIA Son No problems noted. Daughter No problems noted. Daughter No problems noted. Daughter No problems noted. Sister , CHILDBIRTH at age 21. No problems noted. Social History Smoking/Tobacco Use Status: Former Tobacco Use Smoking risk assessment performed?: Yes Alcohol Intake: never Drug use: Never Do you feel safe at home: Yes Do you feel safe in your relationship?: Yes
--- NOTE | 2020-06-27 18:58 | NUR.NOTE ---
Nursing Note: 06/27/2020 18:58 This RN called to provide [id number] handoff and there was not a nurse available to receive handoff. Phone number was [phone], patient was transferred to [facility].
== END 2020-06-27 17:55 | disposition short-term general hospital (02) | DRG 392 ==
LOC: ER 18:47 → MS 19:11
PROVIDERS: Surgery; Admitting Provider Surgery; Emergency Provider Emergency Medicine; PCP Family Medicine; Visit Provider Surgery
DX: K57.20 Diverticulitis of large intestine with perforation and abscess without bleeding (principal); R91.1 Solitary pulmonary nodule; I70.0 Atherosclerosis of aorta; Z20.822 Contact with and (suspected) exposure to COVID-19; K44.9 Diaphragmatic hernia without obstruction or gangrene; K21.9 Gastro-esophageal reflux disease without esophagitis; F41.9 Anxiety disorder, unspecified; Z87.891 Personal history of nicotine dependence; E55.9 Vitamin D deficiency, unspecified; M85.80 Other specified disorders of bone density and structure, unspecified site; M54.2 Cervicalgia; N95.2 Postmenopausal atrophic vaginitis; R73.9 Hyperglycemia, unspecified; E78.5 Hyperlipidemia, unspecified; L40.9 Psoriasis, unspecified
CPT/HCPCS: 36415; 80053; 83690; 87635; 96361; 96365; 96375; 99222; 99232; 99238; 99285; 74177; 81003; 81015; 82248; 85025; 85610; 85730; 87086; J0131; J0744; J2405; J3490

== ENCOUNTER → 2020-08-18 14:31 | Outpatient (CLI) | payer OTHER, SELFPAY ==
--- NOTE | 2020-08-18 | DI.CT_ITS ---
Exam(s) CT ABDOMEN PELVIS W EXAM: CT ABDOMEN PELVIS W INDICATION: COLONIC DIVERTICULAR ABSCESS K57.20. COMPARISON: CT CHEST FOR PULMONARY EMBOLUS from 09/15/[address] ABDOMEN PELVIS W from 06/27/2020 TECHNIQUE: FINDINGS: CT examination of the abdomen and pelvis was performed with a bolus infusion of 100 cc of Omnipaque 3 50. Images obtained through the lung bases show fibrotic changes and a stable 7 millimeter mean diam eter right lower lobe pulmonary nodule, no change from August 2014 CT. The liver is unremarkable in appearance except for a stable presumed hepatic cyst left lobe.. Gallbladder and bile ducts are CT normal. Pancreas appears normal. Spleen is unremarkable in appearance. Adrenals appear normal. The kidneys are unremarkable with no evidence of hydronephrosis, nephrolithiasis, or renal mass. Tin y presumed left renal cyst noted.. Urinary bladder unremarkable. Abdominal aorta is of normal diameter and no major vascular abnormality is seen. No abdominal wall hernia. No abdominal or pelvic adenopathy. Uterus appears intact as visualized. Appendix is nonvisualized but there is no evidence of appendicitis. A previously described diverticular abscess in the deep pelvis has markedly decreased in size in [facility] with the previous CT of June 27. Probable 1-2 cm intramural abscess persists in mid sigmoid. Possible small gas and fluid containing abscess less than 2 cm in diameter in the cul-de-sac. No ev idence obstruction. Urinary bladder appears intact. IMPRESSION: Marked interval decrease in size of pelvic diverticular abscess. Small persistent presumed abscess c avities noted as described above. RADIATION DOSE DELIVERED: 898.22mGy.cm Total DLP 898.22mGy.cm Total DLP RADIATION OPTIMIZATION: All CT scans at this facility use at least one of these dose optimization te chniques: automated exposure control; mA and/or kV adjustment per patient size (includes targeted exa ms where dose is matched to clinical indication); or iterative reconstruction.
[2020-08-18] MEDS: Omnipaque 350 MG/ML 50 ML BTL IJ (13:09)
[2020-08-18] MEDS: Breeza Beverage 473 ML BTL PO (13:10)
[2020-08-18] MEDS: Normal Saline - Diluent 50 ML VIAL IV (14:19)
[2020-08-18] MEDS: Omnipaque 350 MG/ML 100 ML BTL IJ (14:19)
[2020-08-18] MEDS: Normal Saline Flush 10 ML SYR IVP (14:20)
== END ==
PROVIDERS: PCP Family Medicine; Visit Provider Family Medicine
DX: K57.20 Diverticulitis of large intestine with perforation and abscess without bleeding (principal)
CPT/HCPCS: 74177; J3490; Q9967

== ENCOUNTER 2020-11-30 00:56 | Outpatient (CLI) | payer OTHER, SELFPAY ==
--- NOTE | 2020-11-30 | DI.MAMMO_ITS ---
Exam(s) MAMMO SCREENING EXAM: MAMMO SCREENING CLINICAL HISTORY: SCREENING, H/O ABNL MAMMO, Z87.898 TECHNIQUE: Mammograms were interpreted according to the usual protocol including computer analysis w Easia[employer] CAD system, tomosynthesis and C-view imaging. COMPARISON: FINDINGS: The breasts are of moderate density with fairly symmetrical distribution of fibroglandular tissue. N o dominant mass or clumped microcalcification is identified in either breast. The current examinatio n is compared with previous examinations including November 2019 and there has been no gross interval change in appearance in comparison with the prior studies. IMPRESSION: No specific evidence of malignancy at this time. Routine screening examinations are suggested at yea rly intervals in this age group according to the ACS ACR guidelines. BI-RADS Category 1 - Negative Breast Density - Category B - Scattered areas of fibroglandular density
== END 2020-11-30 01:16 ==
PROVIDERS: PCP Family Medicine; Visit Provider Family Medicine
DX: Z12.31 Encounter for screening mammogram for malignant neoplasm of breast (principal); Z87.898 Personal history of other specified conditions
CPT/HCPCS: 77063; 77067

== ENCOUNTER 2021-05-21 02:01 | Outpatient (CLI) | payer MEDICARE, SELFPAY ==
[2021-05-21 11:41] LABS: Source Nasal/Nares
[2021-05-21 14:07] LABS: COVID-19 PCR Negative (Negative)
== END 2021-05-21 02:02 | disposition home or self-care (01) ==
PROVIDERS: PCP Family Medicine; Visit Provider Surgery
DX: Z20.822 Contact with and (suspected) exposure to COVID-19 (principal)
CPT/HCPCS: 87635; U0005

== ENCOUNTER 2022-02-24 01:58 | Outpatient (RCR) | payer MEDICARE, SELFPAY ==
[2022-02-24] MEDS: Acetaminophen 325 MG TAB 650 MG PO (12:05)
[2022-02-24] MEDS: diphenhydrAMINE 25 MG CAP PO (12:05)
[2022-02-24] MEDS: Normal Saline Flush 10 ML SYR IVP (12:06)
[2022-02-24] MEDS: Hydrocortisone SOD SUC. 100 MG VIAL IVP (12:06)
== END 2022-03-22 23:59 | disposition home or self-care (01) ==
LOC: INF 01:58
PROVIDERS: PCP Family Medicine; Visit Provider Family Medicine
DX: L40.50 Arthropathic psoriasis, unspecified (principal)
CPT/HCPCS: 96365; 96374; 96375; J1602; J1720

== ENCOUNTER 2022-05-13 01:48 | Outpatient (RCR) | payer MEDICARE, SELFPAY ==
[2022-05-13] MEDS: Acetaminophen 325 MG TAB 650 MG PO (12:12)
[2022-05-13] MEDS: diphenhydrAMINE 25 MG CAP PO (12:12)
[2022-05-13] MEDS: Normal Saline Flush 10 ML SYR IVP (12:13)
[2022-05-13] MEDS: Hydrocortisone SOD SUC. 100 MG VIAL IVP (12:13)
== END 2022-05-20 23:59 | disposition home or self-care (01) ==
LOC: INF 01:48
PROVIDERS: PCP Family Medicine; Visit Provider Family Medicine
DX: L40.50 Arthropathic psoriasis, unspecified (principal)
CPT/HCPCS: 96365; J1602; J1720

== ENCOUNTER 2022-06-22 14:58 | Emergency (ER) | payer MEDICARE, SELFPAY ==
--- NOTE | 2022-06-22 15:00 | DI.US_ITS ---
Exam(s) US LOWER EXTREMITY VENOUS LT EXAM: US LOWER EXTREMITY VENOUS LT CLINICAL HISTORY: left gorin pain, left left leg swelling TECHNIQUE: Left lower extremity venous ultrasound performed using grayscale, color-flow, and spectra l Doppler analysis. COMPARISON: No exams were available for comparison FINDINGS: The left common femoral, femoral and popliteal veins demonstrate normal compressibility, augmentation , and color Doppler. The posterior tibial veins are patent. The saphenofemoral junction is unremarka ble. There is no evidence of a Vallejo cyst. The soft tissues are unremarkable. IMPRESSION: 1. No evidence of a left lower extremity DVT. 2. Findings were discussed with the emergency department at 4:19 p.m. on 06/22/2022. DATA REPOSITORY:
--- NOTE | 2022-06-22 15:00 | DI.RAD_ITS ---
Exam(s) XR HIP LT COMPLETE AP PELVIS EXAM: XR HIP LT COMPLETE AP PELVIS CLINICAL HISTORY: hip/groin pain left. TECHNIQUE: 2D digital imaging was performed of the left hip. Two views were obtained. AP pelvis an d lateral left hip views were obtained. COMPARISON: No exams were available for comparison FINDINGS: BONES: No acute fracture is present. No bony destructive lesion is seen. JOINTS: No dislocation present. Degenerative changes are seen in the hips bilaterally characterized b y joint space narrowing and periarticular spurring. The sacroiliac joints and symphysis pubis are un remarkable. SOFT TISSUE: Surgical clips are seen in the pelvis. IMPRESSION: 1. No acute fracture or dislocation. 2. Degenerative changes in the hips bilaterally. DATA REPOSITORY: RADIATION DOSE DELIVERED:
[2022-06-22 15:07] VITALS: BP 168/96; PULSE 104; RESP 18; TEMP 37.1; O2SAT 94
[2022-06-22] MEDS: Ketorolac 15 MG/ML VIAL IM (15:19)
--- NOTE | 2022-06-22 15:19 | W.ED.GENAD ---
Discharge Plan Disposition Patient Disposition: Home Discharge Details Chief Complaint: Vascular Clinical Impression: Hip pain Primary Care Provider: Nara Contreras ED Provider: Robel Huerta Home Meds and New Rx's Prescriptions: No Action meloxicam 15 mg tablet 15 mg PO DAILY Patient Comments: not taking methotrexate sodium 2.5 mg tablet 15 mg PO QWEEK Patient Comments: not taking omeprazole 20 mg capsule,delayed release(DR/EC) 20 mg PO DAILY Patient Comments: TAKE ONE CAPSULE BY MOUTH EVERY DAY 30 MINUTES BEFORE MORNING MEAL folic acid 1 mg tablet 1 mg PO DAILY Patient Comments: TAKE ONE TABLET BY MOUTH EVERY DAY rosuvastatin 5 mg tablet 5 mg PO QPM Patient Comments: TAKE ONE TABLET BY MOUTH EVERY DAY cholecalciferol (vitamin D3) [Vitamin D3] 50 mcg (2,000 unit) Tablet 50 mcg PO DAILY methylprednisolone 4 mg tablet Patient Comments: TAKE 4 TABLETS DAILY AFTER BREAKFAST FOR 5 DAYS; THEN 3 TABLETS DAILY FOR 5 DAYS; THEN 1 TABLET DAILY FOR 5 DAYS Discharge Instructions Instructions: Leg Pain (ED) Additional Instructions: Please follow-up with your clinical science liaison. Please return to the emergency department for any worsening Medical Decision Making 76-year-old female presents with atraumatic left groin and hip discomfort as well as left leg swelling, no recent travel no recent trauma no recent surgery no history of thromboembolic disease. Referred in by primary care for evaluation of possible DVT. Patient does have mild edema to ankle and pretibial soft tissue left lower extremity compared to right, no signs of infection such as cellulitis or abscess, patient soft compartments is neurovascularly intact range of motion intact atraumatic, will obtain x-ray of hip and pelvis, will also obtain ultrasound left lower extremity. Mild tachycardia however no tachypnea or chest pain to suggest PE. Disposition pending reassessment and results of imaging. Trial of analgesia. Consider lymphedema versus mild traumatic injury versus venous stasis versus DVT versus osteoarthritis of the hip lower suspicion for dislocation or fracture 16: 57 resting comfortably no acute distress. No evidence of DVT fracture or dislocation. Patient does have psoriatic arthritis. Consider arthritic flare versus sciatica. No overlying skin changes to suggest cellulitis or infection, range of motion is intact. Low suspicion for septic joint. Patient to follow-up with clinical science liaison. Home care instructions and return precautions given HPI General Date/Time Provider Initiated Documentation: 06/22/22 15:08. HPI Narrative: 76-year-old female history of psoriasis presents with left hip and groin discomfort as well as left lower extremity swelling over the past several days. Denies recent travel denies recent injury denies recent surgery denies history of thromboembolic disease. Related Data Home Medications Medication Instructions Recorded Confirmed cholecalciferol (vitamin D3) 50 50 mcg PO DAILY 06/23/20 06/22/22 mcg (2,000 unit) tablet (Vitamin D3) folic acid 1 mg tablet 1 mg PO DAILY 06/23/20 06/22/22 meloxicam 15 mg tablet 15 mg PO DAILY 06/23/20 06/23/20 methotrexate sodium 2.5 mg tablet 15 mg PO QWEEK 06/23/20 06/23/20 omeprazole 20 mg capsule,delayed 20 mg PO DAILY 06/23/20 06/22/22 release rosuvastatin 5 mg tablet 5 mg PO QPM 06/23/20 06/22/22 methylprednisolone 4 mg tablet mg 06/22/22 06/22/22 Allergies Allergy/AdvReac Type Severity Reaction Status Date / Time lidocaine Allergy Severe Flushing Unverified 06/22/22 15:09 of face Latex, Natural Rubber Allergy Unverified 06/22/22 15:09 codeine AdvReac Intermediate Nausea Unverified 06/22/22 15:09 ciprofloxacin AdvReac Mild GI Upset Unverified 06/22/22 15:09 General Stated Complaint: Vascular PATRICE: 3 Review of Systems Narrative: Review of Systems Constitutional: negative Eyes: negative ENT: negative Cardiovascular: negative Respiratory: negative Gastrointestinal: negative : negative Musculoskeletal: Groin pain, leg swelling Skin: negative Neurologic: negative Psych: negative PFSH All Active Problems Hip pain (Acute) Aortic atherosclerosis (Acute) Lung nodule seen on imaging study (Acute) should get outpt screening CT 06/10 Hiatal hernia with GERD (Acute) Diverticulitis of intestine with abscess (Acute) Vitamin D deficiency (Chronic 06/09/17) Urinary incontinence (Chronic 06/17/14) Right hip pain (Chronic 05/30/17) Osteopenia (Chronic) T-2.01/-1.6/-1.7 Neck pain (Chronic) C5-6 disc space narrowing Low back pain (Chronic 01/19/06) DDD L5-S1 Lichen sclerosus et atrophicus of the vulva (Chronic 06/30/15) Diverticulosis of colon without diverticulitis (Chronic) Atrophic vaginitis (Chronic 06/17/14) Anxiety (Chronic 12/08/14) Dyspepsia (Chronic) Hyperlipidemia (Chronic) Psoriasis (Chronic) Diverticulosis (Chronic) a. episodic diverticulitis - last episode three weeks ago H/O surgical procedure (Chronic) a. arthroscopic left knee surgery b. tubal ligation c. appendectomy as a child Surgical History Appendectomy Arthroplasty of knee (~05/2009) right knee torn medial and lateral meniscus; Meniscectomy and chonfroplasty of medial femoral condyle. Ligation of fallopian tube Family History Mother Diabetes Heart disease Father , PNEUMONIA at age 92. Heart disease Hyperlipidemia Sister Alcohol abuse Sister Heart disease Grandfather Heart disease Grandfather No problems noted. Grandmother Asthma Grandmother No problems noted. Sister Neoplasm LEUKEMIA Son No problems noted. Daughter No problems noted. Daughter No problems noted. Daughter No problems noted. Sister , CHILDBIRTH at age 21. No problems noted. Social History Smoking/Tobacco Use Status: Former Tobacco Use Smoking risk assessment performed?: Yes Alcohol Intake: never Drug use: Never Substance use type: does not use Do you feel safe at home: Yes Do you feel safe in your relationship?: Yes Exam Narrative Exam Narrative: Physical Examination General: alert, awake, cooperative, resting comfortably, no acute distress Respiratory: Normal respiratory rate speaking full sentences no tachypnea Skin: no lesions, rashes or trauma appreciated Neuro: AAOx3, normal speech, moving all extremities Extremities: Mild edema to left ankle and hunt greater than right, range of motion intact, no joint laxity, soft compartments, warm well perfused extremity ambulatory with a cane Psych: Appropriate mood and affect Course Vital Signs Vital signs: Vital Signs Temperature 37.1 C 06/22/22 15:07 Pulse 104 H 06/22/22 15:07 Respiratory Rate 18 06/22/22 15:07 Blood Pressure 168/96 H 06/22/22 15:07 Pulse Oximetry 94 05/03/23 15:07 Temperature 37.1 C 06/22/22 15:07 Temperature Source Temporal Artery Scan 06/22/22 15:07 Pulse 104 H 06/22/22 15:07 Respiratory Rate 18 06/22/22 15:07 Respiratory Effort Normal, Non-Labored 06/22/22 15:08 Blood Pressure 168/96 H 06/22/22 15:07 Pulse Oximetry 94 06/22/22 15:07 Oxygen Delivery Method Room Air 06/22/22 15:07 Oxygen Flow Rate 0 06/22/22 15:07
[2022-06-22 15:42] VITALS: RESP 18
[2022-06-22 17:01] VITALS: RESP 18
== END 2022-06-22 17:02 | disposition home or self-care (01) ==
PROVIDERS: Emergency Provider Emergency Medicine; PCP Family Medicine
DX: M25.552 Pain in left hip (principal); R22.42 Localized swelling, mass and lump, left lower limb
CPT/HCPCS: 96372; 99284; 73502; 93971; J1885

== ENCOUNTER 2022-06-24 14:58 | Emergency (ER) | payer MEDICARE, SELFPAY ==
[2022-06-24 15:10] VITALS: BP 164/40; PULSE 94; RESP 18; TEMP 36.4; O2SAT 98
--- NOTE | 2022-06-24 15:23 | ED.GENADUL_ITS ---
Discharge Plan Disposition Patient Disposition: Home Condition: Good Discharge Details Clinical Impression: Hip pain Primary Care Provider: Nara Contreras ED Provider: Armond Gallardo Meds and New Rx's Prescriptions: New tramadol 50 mg tablet 50 mg PO QHS Qty: 7 0RF Continued omeprazole 20 mg capsule,delayed release(DR/EC) 20 mg PO DAILY Patient Comments: TAKE ONE CAPSULE BY MOUTH EVERY DAY 30 MINUTES BEFORE MORNING MEAL folic acid 1 mg tablet 1 mg PO DAILY Patient Comments: TAKE ONE TABLET BY MOUTH EVERY DAY rosuvastatin 5 mg tablet 5 mg PO QPM Patient Comments: TAKE ONE TABLET BY MOUTH EVERY DAY cholecalciferol (vitamin D3) [Vitamin D3] 50 mcg (2,000 unit) Tablet 50 mcg PO DAILY methylprednisolone 4 mg tablet 8 mg PO DAILY Patient Comments: TAKE 4 TABLETS DAILY AFTER BREAKFAST FOR 5 DAYS; THEN 3 TABLETS DAILY FOR 5 DAYS; THEN 1 TABLET DAILY FOR 5 DAYS Simponi ARIA 12.5 mg/mL Solution 150 mg IV Q8W Rx Instructions: administer over 30 mins Discharge Instructions Instructions: Hip Pain (ED) Additional Instructions: You were seen in the ED for continued left hip pain. You had laboratory studies which were reassuring, imaging of your spine and hip which other than arthritis did not show any evidence of fracture. You do have a 2.7 cm abdominal aneurysm which you should discuss with primary care as it will need to be followed over time. I have prescribed tramadol for you to use at night. Continue acetaminophen and Aleve for pain during the day. Please follow-up with primary care next week. Return to ED if you develop any bladder or bowel dysfunction, numbness, weakness to your leg, fever, other concerns. Medical Decision Making Patient presenting with continued left hip pain with difficulty ambulating and lying down. She is able to sit if she takes pressure off the left buttock/hip. She denies any bladder or bowel dysfunction, loss of perineal sensation, numbness or weakness. She does have some mild anterior thigh paresthesias. There is no rash. She is exquisitely tender in the lower lumbar spine area. She also has significant pain with range of motion of the left hip. May all be related to her psoriatic arthritis. Less likely septic joint given duration and still has ability to ambulate and has range of motion. The only caveat is she is immunosuppressed. Will get CBC, sed rate, CRP. Discussed with radiology but cannot obtain MRI today. We will get CT of LS spine and left hip. CBC with a white count of 10.5. Chemistries with some minor renal insufficiency otherwise fine. Sed rate slightly elevated to 41. C-reactive protein also slightly elevated to 1.44. CT of the LS spine and left hip without evidence of fracture. She does have fairly significant spondylosis with some canal stenosis as well as neuroforaminal stenosis. She is also noted to have a 2.7 cm infrarenal abdominal aorta aneurysm. Left hip without fracture and no evidence on CT of significant effusion. Patient was given IM Toradol for pain. We discussed need to follow-up and consider physical therapy. She will continue Aleve and Tylenol during the day. She would like something a little stronger to help her sleep at night. She has allergy to codeine which is reported as nausea and vomiting. We will try tramadol at night. She will contact primary care next week. Return precautions provided. Lab Data Lab results reviewed: Yes I reviewed the patient's lab results. HPI General Mode of arrival: wheelchair . Date/Time Provider Initiated Documentation: 06/24/22 15:23 . Limitations to Documentation: no limitations . Information obtained by: patient . HPI Narrative: Patient presents to ED with complaint of left hip and buttock pain. Patient seen here on Monday for same. Pain had started on Monday and was atraumatic. Pain has remained pretty much unchanged. She is able to ambulate but with significant pain. The pain does not radiate down the leg. She has some abnormal sensation in her leg but no actual numbness or weakness. She has no bladder or bowel incontinence. She has no perineal numbness. She is not having back pain or abdominal pain. She was seen here on Monday and had ultrasound of the left lower extremity which was negative for DVT and x-ray of the hip and pelvis which was negative for fracture. She did receive a dose of Toradol with some improvement short-term. Unfortunately she did have a fall when she got home landing on her buttocks. Pain did not really change after the fall. She has been using Advil. She denies any fever. 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 She is immunocompromised due to being on steroids and biologic for her psoriatic arthritis. Related Data Home Medications Medication Instructions Recorded Confirmed cholecalciferol (vitamin D3) 50 50 mcg PO DAILY 06/23/20 06/24/22 mcg (2,000 unit) tablet (Vitamin D3) folic acid 1 mg tablet 1 mg PO DAILY 06/23/20 06/24/22 omeprazole 20 mg capsule,delayed 20 mg PO DAILY 06/23/20 06/24/22 release rosuvastatin 5 mg tablet 5 mg PO QPM 06/23/20 06/24/22 methylprednisolone 4 mg tablet 8 mg PO DAILY 06/22/22 06/24/22 golimumab 12.5 mg/mL intravenous 150 mg IV Q8W 06/24/22 06/24/22 solution (Simponi ARIA) tramadol 50 mg tablet 50 mg PO QHS #7 tabs 06/24/22 Previous Rx's Medication Instructions Recorded tramadol 50 mg tablet 50 mg PO QHS #7 tabs 06/24/22 Allergies Allergy/AdvReac Type Severity Reaction Status Date / Time lidocaine Allergy Severe Flushing Unverified 06/24/22 15:15 of face Latex, Natural Rubber Allergy Unverified 06/24/22 15:15 codeine AdvReac Intermediate Nausea Unverified 06/24/22 15:15 ciprofloxacin AdvReac Mild GI Upset Unverified 06/24/22 15:15 General Stated Complaint: Orthopedic PATRICE: 4 Review of Systems Narrative: Per HPI PFSH All Active Problems Hip pain (Acute) Aortic atherosclerosis (Acute) Lung nodule seen on imaging study (Acute) should get outpt screening CT 06/10 Vitamin D deficiency (Chronic 06/09/17) Urinary incontinence (Chronic 06/17/14) Right hip pain (Chronic 05/30/17) Osteopenia (Chronic) T-2.01/-1.6/-1.7 Neck pain (Chronic) C5-6 disc space narrowing Low back pain (Chronic 01/19/06) DDD L5-S1 Lichen sclerosus et atrophicus of the vulva (Chronic 06/30/15) Diverticulosis of colon without diverticulitis (Chronic) Atrophic vaginitis (Chronic 06/17/14) Anxiety (Chronic 12/08/14) Dyspepsia (Chronic) Diverticulosis (Chronic) a. episodic diverticulitis - last episode three weeks ago H/O surgical procedure (Chronic) a. arthroscopic left knee surgery b. tubal ligation c. appendectomy as a child Medical History Diverticulitis of intestine with abscess Hiatal hernia with GERD Hyperlipidemia Psoriasis Surgical History Appendectomy Arthroplasty of knee (~05/2009) right knee torn medial and lateral meniscus; Meniscectomy and chonfroplasty of medial femoral condyle. Ligation of fallopian tube Family History Mother Diabetes Heart disease Father , PNEUMONIA at age 92. Heart disease Hyperlipidemia Sister Alcohol abuse Sister Heart disease Grandfather Heart disease Grandfather No problems noted. Grandmother Asthma Grandmother No problems noted. Sister Neoplasm LEUKEMIA Son No problems noted. Daughter No problems noted. Daughter No problems noted. Daughter No problems noted. Sister , CHILDBIRTH at age 21. No problems noted. Social History Smoking/Tobacco Use Status: Former Tobacco Use Smoking risk assessment performed?: Yes Alcohol Intake: never Drug use: Never Substance use type: does not use Do you feel safe at home: Yes Do you feel safe in your relationship?: Yes Exam Narrative Exam Narrative: Const: WDWN elderly female in NAD. HEENT: NC/AT. Normal facial exam. Eyes: Normal conjunctiva and sclera. Neck: Supple. Trachea midline. Lungs: Normal respiratory effort. Back: Tender lower LS spine Neuro: A+O x 3. Normal speech, mentation. Cranial nerves II - XII grossly intact. No gross motor or sensory deficit. Some alteration in sensation left anterior thigh. Ext: No C/C/E. Pain with ROM of left hip - flexion, internal/esternal rotation Skin: Warm and dry without erythema or rash. Course Vital Signs Vital signs: Vital Signs Temperature 97.5 F L 06/24/22 15:10 Pulse 94 H 06/24/22 15:10 Respiratory Rate 18 06/24/22 15:10 Blood Pressure 164/40 H 06/24/22 15:10 Pulse Oximetry 98 06/24/22 15:10 Temperature 97.5 F L 06/24/22 15:10 Temperature Source Tympanic 06/24/22 15:10 Pulse 94 H 06/24/22 15:10 Respiratory Rate 18 06/24/22 15:10 Respiratory Effort Normal, Non-Labored 06/24/22 15:18 Blood Pressure 164/40 H 06/24/22 15:10 Pulse Oximetry 98 06/24/22 15:10 Pain Level 7 06/24/22 15:10
--- NOTE | 2022-06-24 15:45 | DI.CT_ITS ---
Exam(s) CT LUMBAR SPINE WO EXAM: CT LUMBAR SPINE WO CLINICAL HISTORY: marked tenderness lower lumbar spine. TECHNIQUE: Imaging Protocol: Axial computed tomography images with coronal and sagittal reformatted images were created and reviewed COMPARISON: No exams were available for comparison FINDINGS: Bones: There are no acute vertebral fractures, listhesis, nor pars defects. There are no lytic osseo us lesions evident. There are multilevel disc protrusions and multilevel spinal canal stenosis. This could be further ve ssel aided with MRI. There is spinal canal stenosis. Facet arthropathy. Vascular calcifications noted in the abdominal aorta with fusiform infrarenal abdominal aortic aneury sm which exhibits maximum diameter of 2.8 cm. Calcification also seen in the common iliac arteries a nd severe calcification noted both the luminal and intraluminal at the aortic bifurcation. Cannot as sess the lumen as this is a noncontrast study. IMPRESSION: 1. No evidence of acute fractures in the lumbosacral spine. 2. Degenerative changes with multilevel canal stenosis. Also foraminal stenosis evident bilaterally at L2-3.. For can be further studied with MRI. 3. Severe atherosclerotic involvement of the abdominal aorta with fusiform infrarenal abdominal aorti c maximum diameter 2.8 cm. There is prominent luminal calcification in the lower most abdominal aort a. Suspect significant stenosis versus occlusion at this level. RADIATION DOSE DELIVERED: 543.96mGy.cm Total DLP DATA REPOSITORY: All CT scans at this facility are submitted to the National Radiology Data Registry (NRDR) Dose Index Registry (DIR) with the [employer] (ACR). RADIATION OPTIMIZATION: All CT scans at this facility use at least one of these dose optimization te chniques: automated exposure control; mA and/or kV adjustment per patient size (includes targeted exa ms where dose is matched to clinical indication); or iterative reconstruction.
--- NOTE | 2022-06-24 15:45 | DI.CT_ITS ---
Exam(s) CT LOWER EXTREMITY LT WO EXAM: CT LOWER EXTREMITY LT WO CLINICAL HISTORY: left pelvis/hip pain. TECHNIQUE: Imaging Protocol: Axial computed tomography images with coronal and sagittal reformatted images were created and reviewed. CONTRAST MATERIAL: None COMPARISON: CR XR HIP LT COMPLETE AP PELVIS from 06/22/2022 FINDINGS: Osseous: No evidence of left melissa pelvic fracture. No evidence of left hip fracture. There are dege nerative changes in the left hip joint including joint space narrowing and degenerative subarticular cysts on both sides the joint. Soft tissues: No evidence of significant size left hip joint effusion. No abnormal fluid collections around the hip. Partial sigmoid resection noted. Sigmoid diverticuli evident. Osteitis symphysis pubis. IMPRESSION: Degenerative changes in the left hip but no fracture evident. No hip joint effusion. RADIATION DOSE DELIVERED: 223.73mGy.cm Total DLP DATA REPOSITORY: All CT scans at this facility are submitted to the National Radiology Data Registry (NRDR) Dose Index Registry (DIR) with the [employer] (ACR). RADIATION OPTIMIZATION: All CT scans at this facility use at least one of these dose optimization te chniques: automated exposure control; mA and/or kV adjustment per patient size (includes targeted exa ms where dose is matched to clinical indication); or iterative reconstruction.
[2022-06-24 16:40] LABS: Abs Immature Grans 0.04 10^3/uL (0.0-0.06); Absolute Basophil Count 0.03 10^3/uL (0.0-0.2); Absolute Eosinophil Count 0.01 10^3/uL (0.0-0.7); Absolute Lymphocyte Count 0.95 10^3/uL (1.2-3.4); Absolute Monocyte Count 0.21 10^3/uL (0.1-0.8); Absolute Neutrophil Count 9.22 10^3/uL (1.2-6.7); Basophils % 0.3; Eosinophils % 0.1; HCT 39.4 % (36.0-46.0); HGB 12.1 g/dL (11.2-15.7); Immature Grans % 0.4; Lymphocytes % 9.1; MCH 25.2 pg (27.0-33.0); MCHC 30.7 % (32.0-36.0); MCV 82 fL (80-95); MPV 10.3 fL (8.0-11.0); Neutrophils % 88.1; Platelet Count 329 10^3/uL (130-400); RDW 16.6 % (11.7-14.6); RDW-SD 49.7 fL; WBC 10.46 10^3/uL (4.4-10.8)
[2022-06-24 16:42] LABS: ESR 41 mm/hr (0-30)
[2022-06-24 16:50] LABS: Anion Gap 8.5 mmol/L (3-11); BUN 26 mg/dL (7-18); C-Reactive Protein 1.44 mg/dL (0.0-0.3); CO2 24.5 mmol/L (21.0-32.0); CREATININE 1.2 mg/dL (0.55-1.02); Calcium 9.7 mg/dL (8.5-10.1); Chloride 105 mmol/L (98-107); Estimated GFR 46.91 (mL/min/1.73m2); Glucose 136 mg/dL (74-106); Potassium 4.5 mmol/L (3.5-5.1); Sodium 138 mmol/L (136-145)
[2022-06-24 17:27] VITALS: BP 159/83; PULSE 86; TEMP 36.8; O2SAT 92
[2022-06-24] MEDS: Ketorolac 15 MG/ML VIAL IM (17:43)
--- NOTE | 2022-06-24 18:27 | DI.VRAD_ITS ---
PROCEDURE INFORMATION: Exam: CT Lumbar Spine Without Contrast Exam date and time: 06/24/2022 5:58 PM Age: 76 years old Clinical indication: Low back pain; Patient HX: Marked tenderness lower lumbar spine TECHNIQUE: Imaging protocol: Computed tomography of the lumbar spine without contrast. COMPARISON: CR LUMBAR SPINE COMPLETE 06/09/2017 6:55 AM FINDINGS: Bones/joints: Anatomic alignment of the lumbar spine. Straightening of the normal lumbar lordosis. No evidence for acute fracture. Diffuse lumbar spondylosis, with partially calcified disc bulges seen at L2-L3, L3-L4 and L4-L5 resulting in varying degrees of moderate to severe spinal canal stenosis at these levels. Moderate to severe bilateral neural foraminal stenosis is seen at L2-L3. Varying degrees of [id number] neural foraminal stenosis throughout the remaining lumbar spine. The osseous structures are demineralized. Mild osteoarthritic changes within the bilateral sacroiliac joints. Stomach and bowel: Diverticula are seen throughout the imaged colon. Intraperitoneal space: No free fluid. Vasculature: Extensive calcific atherosclerotic plaque throughout the abdominal aorta and iliac vessels. Ectasias of the infrarenal abdominal aorta is seen, measuring up to 2.7 cm. Extensive calcific atherosclerotic plaque is seen within the distal abdominal aorta at the bifurcation resulting in severe stenosis. Soft tissues: Unremarkable. IMPRESSION: 1. No evidence for an acute fracture within the lumbar spine. 2. Diffuse lumbar spondylosis, with varying degrees of moderate to severe spinal canal stenosis at multiple levels, and moderate to severe bilateral neural foraminal stenosis at L2-L3. Please see details above. 3. Extensive calcific atherosclerotic plaque throughout the abdominal aorta resulting in ectasias of the infrarenal abdominal aorta measuring up to 2.7 cm. Additionally, extensive calcifications are seen at the bifurcation resulting in severe stenosis. Dictated and Authenticated by: Mira Lemos MD. Ordering:SOSA Leahy MD
--- NOTE | 2022-06-24 18:29 | DI.VRAD_ITS ---
PROCEDURE INFORMATION: Exam: CT Left Lower Extremity Without Contrast, Hip Exam date and time: 06/24/2022 6:01 PM Age: 76 years old Clinical indication: Patient HX: Left pelvis / hip pain TECHNIQUE: Imaging protocol: CT of the left lower extremity without contrast was performed. Exam focused on the hip. COMPARISON: CT ABDOMEN PELVIS W 08/18/2020 2:21 PM FINDINGS: Bones/joints: No evidence for acute fracture or subluxation within the left hip. Mild approaching moderate, osteoarthritic changes within the left hip. Moderate osteoarthritic changes within the pubic symphysis with likely osteitis pubis. Soft tissues: Unremarkable. Bowel: Diverticula are seen throughout the imaged sigmoid colon. IMPRESSION: No evidence for acute fracture or subluxation within the left hip. Dictated and Authenticated by: Mira Lemos MD. Ordering:SOSA Leahy MD
== END 2022-06-24 19:12 | disposition home or self-care (01) ==
PROVIDERS: Emergency Provider Emergency Medicine; PCP Family Medicine
DX: M25.552 Pain in left hip (principal); M54.50 Low back pain, unspecified
CPT/HCPCS: 80048; 85652; 96372; 99284; 72131; 73700; 85025; 86140; J1885

== ENCOUNTER 2022-07-07 02:37 | Outpatient (RCR) | payer MEDICARE, SELFPAY ==
[2022-07-07] MEDS: Acetaminophen 325 MG TAB 650 MG PO (12:08)
[2022-07-07] MEDS: diphenhydrAMINE 25 MG CAP 50 MG PO (12:09)
[2022-07-07] MEDS: Hydrocortisone SOD SUC. 100 MG VIAL IVP (12:10)
== END 2022-07-20 23:59 | disposition home or self-care (01) ==
LOC: INF 02:37
PROVIDERS: PCP Family Medicine; Visit Provider Family Medicine
DX: L40.50 Arthropathic psoriasis, unspecified (principal)
CPT/HCPCS: 96365; 96374; 96375; J1602; J1720

== ENCOUNTER 2022-09-01 02:26 | Outpatient (RCR) | payer MEDICARE, SELFPAY ==
[2022-09-01] MEDS: Hydrocortisone SOD SUC. 100 MG VIAL IM (12:26)
[2022-09-01] MEDS: Acetaminophen 325 MG TAB 650 MG PO (12:26)
[2022-09-01] MEDS: diphenhydrAMINE 25 MG CAP 50 MG PO (12:26)
[2022-09-01] MEDS: Normal Saline Flush 10 ML SYR IVP (12:27)
== END 2022-09-19 23:59 | disposition home or self-care (01) ==
LOC: INF 02:26
PROVIDERS: PCP Family Medicine; Visit Provider Family Medicine
DX: L40.50 Arthropathic psoriasis, unspecified (principal)
CPT/HCPCS: 36591; 96365; J1602; J1720

== ENCOUNTER 2022-12-05 16:30 | Outpatient (CLI) | payer MEDICARE, SELFPAY ==
[2022-12-05 14:47] LABS: Abs Immature Grans 0.09 10^3/uL (0.0-0.06); Absolute Basophil Count 0.04 10^3/uL (0.0-0.2); Absolute Lymphocyte Count 1.14 10^3/uL (1.2-3.4); Absolute Monocyte Count 0.18 10^3/uL (0.1-0.8); Absolute Neutrophil Count 11.33 10^3/uL (1.2-6.7); Basophils % 0.3; Eosinophils % 0.2; HCT 37.1 % (36.0-46.0); Immature Grans % 0.7; Lymphocytes % 8.9; MCH 24.7 pg (27.0-33.0); MCHC 29.6 % (32.0-36.0); MCV 83 fL (80-95); MPV 10.3 fL (8.0-11.0); Monocytes % 1.4; Neutrophils % 88.5; Platelet Count 294 10^3/uL (130-400); RBC 4.46 10^6/uL (3.93-5.22); RDW 16.6 % (11.7-14.6); RDW-SD 50.1 fL
[2022-12-05 14:48] LABS: Absolute Eosinophil Count 0.03 10^3/uL (0.0-0.7)
[2022-12-05 15:37] LABS: ALT 24 U/L (14-59); AST 16 U/L (15-37); Albumin 3.4 g/dL (3.4-5.0); Alkaline Phosphatase 56 U/L (46-116); Anion Gap 11.2 mmol/L (3-11); BUN 23 mg/dL (7-18); Bilirubin, Total 0.4 mg/dL (0.2-1.0); C-Reactive Protein 1.67 mg/dL (0.0-0.3); CO2 23.8 mmol/L (21.0-32.0); CREATININE 1.2 mg/dL (0.55-1.02); Calcium 9.7 mg/dL (8.5-10.1); Chloride 103 mmol/L (98-107); Estimated GFR 46.62 (mL/min/1.73m2); Glucose 191 mg/dL (74-106); Potassium 4.1 mmol/L (3.5-5.1); Sodium 138 mmol/L (136-145)
== END 2022-12-05 16:31 | disposition home or self-care (01) ==
PROVIDERS: PCP Family Medicine; Visit Provider Internal Medicine
DX: L40.50 Arthropathic psoriasis, unspecified (principal)
CPT/HCPCS: 36415; 80053; 85025; 86140

== ENCOUNTER → 2022-12-30 02:37 | Outpatient (CLI) | payer MEDICARE, SELFPAY ==
--- NOTE | 2022-12-30 | DI.CTLCSR_ITS ---
Exam(s) CT CHEST LUNG CANCER SCREEN EXAM: CT CHEST LUNG CANCER SCREEN CLINICAL HISTORY: SCREENING FOR LUNG CA,FORMER SMOKER, Z87.891 TECHNIQUE: Imaging Protocol: Axial computed tomography images with coronal and sagittal reformatted images were created and reviewed. Low dose screening protocol. COMPARISON: CT CHEST FOR PULMONARY EMBOLUS from 09/15/2014 CR XR CHEST 2V PA LATERAL from 08/19/2018 FINDINGS: Tracheobronchial tree: No bronchiectasis or mucus plugging.. Mediastinum and Louise: No dominant adenopathy or fluid collection. Pulmonary parenchyma: No consolidation or dominant measurable mass. Mild emphysematous changes. Mild sub pleural increased interstitial changes. Lung Nodules: Stable 4 millimeter nodule right upper lobe. Additional tiny nodule peripherally in th e right upper lobe also stable. Stable 7 x 4 millimeter nodule peripheral right lung base Pleura: No effusion. No pneumothorax. Heart: The heart is not dilated. Mild coronary artery calcifications are seen. Aortic valvular calc ification. Aorta: Thoracic aorta non-dilated. Moderate atherosclerotic changes. Upper abdomen: Unremarkable. Bones: Unremarkable for age. Soft Tissues: Unremarkable. IMPRESSION: No suspicious pulmonary nodules. Stable nodules in the right upper and lower lobes. Lung RADS Cat 2 - Benign Appearance / Behavior: Nodules with a very low likelihood of becoming a clin ically active cancer due to size or lack of growth Lung-RADS 1.0 CATEGORIES: Category 0 - Prior chest CT exam(s) being located for comparison. Category 1 - Annual screening in 12 months. No nodules or definitely benign nodules. Category 2 - Annual screening in 12 months. Benign appearance. Nodules with low likelihood of becomin g active cancer. Category 3 - 6-month follow-up. Probably benign. Short-term follow-up suggested. Nodules with low lik elihood of becoming active cancer. Category 4A - 3-month follow-up and CT/PET if >8 mm in size. Suspicious finding. Findings which requi re additional testing. Category 4B - Findings which require additional testing and tissue sampling. Category 4X - Category 3 or 4 nodules with additional features or imaging findings that increases the suspicion of malignancy. Modifier S- Potentially clinically significant findings (non lung cancer) RADIATION DOSE DELIVERED: Total DLP DATA REPOSITORY: All CT scans at this facility are submitted to the National Radiology Data Registry (NRDR) Dose Index Registry (DIR) with the [employer] (ACR). RADIATION OPTIMIZATION: All CT scans at this facility use at least one of these dose optimization te chniques: automated exposure control; mA and/or kV adjustment per patient size (includes targeted exa ms where dose is matched to clinical indication); or iterative reconstruction.
--- OUTSIDE RECORDS SUMMARY | 2022-12-30 02:38 | XMS_ITS | Patient Health Record ---
Author Name Unknown Organization [facility] Address [address] [place] [id number] Care Team Providers Care System Designer Name Role Phone Nara Contreras Primary Care Provider Yamel JEWELL, Robel Salgado ALLERGIES Allergen (clinical drug ingredient) Drug/Non Drug Allergy documented on EMR Reaction Allergy Type Onset Date Status leflunomide Arava increased infection Drug Allergy Active Ciprofloxacin GI upset Drug Allergy Act sagar Codeine Phosphate Nausea Drug Allergy Active duloxetine Cymbalta dry mouth and appetite loss Drug Allergy Active lidocaine Lidocaine multiple issues Drug Allergy A ctive mirtazapine Mirtazapine Nausea Drug Allergy Act sagar simvastatin Simvastatin myalgia Drug Allergy Act sagar Latex Latex Rash Allergy Active lisinopril Lisinopril cough Drug Allergy Activ e methotrexate Methotrexate increased infection Drug Allergy Active RESULTS Component Value Reference Range Notes HGA1C FINGERSTICK Reviewed date:10/20/2022 12:13:15 PM Interpretation:5.6 Performing Lab: Notes/Report: 5.6 HGA1C 5.6 4 - 7 CBC WITH DIFF Reviewed date:04/28/2022 10:47:07 AM Interpretation: Performing Lab:NL1, [facility], [address] [place] [address], [phone] Anil Buchanan M.D. Notes/Report: Received Date: WHITE BLOOD CELL COUNT 12.6 3.8-10.8 Thousand/ uL RED BLOOD CELL COUNT 4.73 3.80-5.10 Million/uL HEMOGLOBIN 12.2 11.7-15.5 g/dL HEMATOCRIT 38.4 35.0-45.0 % MCV 81.2 80.0-100.0 fL MCH 25.8 27.0-33.0 pg MCHC 31.8 32.0-36.0 g/dL RDW 15.9 11.0-15.0 % PLATELET COUNT 364 140-400 Thousand/uL MPV 11.1 7.5-12.5 fL ABSOLUTE NEUTROPHILS 19951 0273-4059 cells/uL ABSOLUTE LYMPHOCYTES 7259 592-0914 cells/uL ABSOLUTE MONOCYTES 554 200-950 cells/uL ABSOLUTE EOSINOPHILS 151 15-500 cells/uL ABSOLUTE BASOPHILS 38 0-200 cells/uL NEUTROPHILS 84.6 LYMPHOCYTES 9.5 MONOCYTES 4.4 EOSINOPHILS 1.2 BASOPHILS 0.3 CMP Reviewed date:04/28/2022 10:47:07 AM Interpretation: Performing Lab:NL1, [facility], [address] [place] [address], [phone] Anil Buchanan M.D. Notes/Report: Received Date: GLUCOSE 103 65-99 mg/dL Fasting reference interval For someone without known diabetes, a glucose value between 100 and 125 mg/dL is consistent with prediabetes and should be confirmed with a follow-up test. UREA NITROGEN (BUN) 21 7-25 mg/dL CREATININE 0.95 0.60-1.00 mg/dL EGFR 62 > OR = 60 mL/min/1.73m2 The eGFR is based on the CKD-EPI 2020 equation. To calculate the new eGFR from a previous Creatinine or Cystatin C result, go to https://www.kidney.org /professionals/ kdoqi/gfr%5Fcalculator BUN/CREATININE RATIO NOT APPLICABLE 6-22 (calc) SODIUM 139 135-146 mmol/L POTASSIUM 3.9 3.5-5.3 mmol/L CHLORIDE 103 98-110 mmol/L CARBON DIOXIDE 25 20-32 mmol/L CALCIUM 9.8 8.6-10.4 mg/dL PROTEIN, TOTAL 6.8 6.1-8.1 g/dL ALBUMIN 3.9 3.6-5.1 g/dL GLOBULIN 2.9 1.9-3.7 g/dL (calc) ALBUMIN/GLOBULIN RATIO 1.3 1.0-2.5 (calc) BILIRUBIN, TOTAL 0.3 0.2-1.2 mg/dL ALKALINE PHOSPHATASE 53 37-153 U/L AST 15 10-35 U/L ALT 13 6-29 U/L HGA1C FINGERSTICK Reviewed date:02/23/2022 11:24:19 AM Interpretation:5.3 Performing Lab: Notes/Report: 5.3 HGA1C 5.3 4 - 7 VITAMIN D 25 OH TOTAL IA Reviewed date:01/17/2022 05:13:27 PM Interpretation: Performing Lab:NL1, [facility], [address] [place] [address], [facility], [place], [phone] Anil Buchanan M.D. Notes/Report: FASTING: UNKNOWN Received Date: VITAMIN D,25-OH,TOTAL,IA 43 30-100 ng/mL Vitamin D Status 25-OH Vitamin D: Deficiency: <20 ng/mL Insufficiency: 20 - 29 ng/mL Optimal: > or = 30 ng/mL For 25-OH Vitamin D testing on patients on D2-supplementation and patients for whom quantitation of D2 and D3 fractions is required, the QuestAssureD(TM) 25-OH VIT D, (D2,D3), LC/MS/MS is recommended: order code 43681 (patients >2yrs). See Note 1 NO COLLECTION DATE RECEIVED. WE HAVE USED THE DATE THE SPECIMEN WAS RECEIVED BY THIS LABORATORY THE COLLECTION DATE. IF THIS IS INCORRECT, PLEASE CONTACT CLIENT SERVICES. PHONE NUMBER: Note 1 For additional information, please refer to http://[email or web address]/faq/FA Q199 (This link is being provided for informational/ educational purposes only.) PHOSPHORUS Reviewed date:01/17/2022 05:13:27 PM Interpretation: Performing Lab:NL1, [facility], [address] [place] [address], [facility], [place], [phone] Anil Buchanan M.D. Notes/Report: Received Date: FASTING: UNKNOWN PHOSPHATE ( PHOSPHORUS) 3.5 2.1-4.3 mg/dL Echocardiogram Reviewed date:08/17/2022 03:01:12 PM Interpretation:06/19/23 Performing Lab: Notes/Report: 08/08/22 Ejection Fraction % BMP Reviewed date:07/28/2022 08:52:38 AM Interpretation: Performing Lab:NL1, [facility], [address] [place] [address], [phone] Anil Buchanan M.D. Notes/Report: Received Date: FASTING: UNKNOWN GLUCOSE 136 65-99 mg/dL Fasting reference interval For someone without known diabetes, a glucose value >125 mg/dL indicates that they may have diabetes and this should be confirmed with a follow-up test. UREA NITROGEN (BUN) 26 7-25 mg/dL CREATININE 0.88 0.60-1.00 mg/dL EGFR 68 > OR = 60 mL/min/1.73m2 The eGFR is based on the CKD-EPI 2020 equation. To calculate the new eGFR from a previous Creatinine or Cystatin C result, go to https://www.kidney.org /professionals/ kdoqi/gfr%5Fcalculator BUN/CREATININE RATIO 30 6-22 (calc) SODIUM 139 135-146 mmol/L POTASSIUM 4.1 3.5-5.3 mmol/L CHLORIDE 106 98-110 mmol/L CARBON DIOXIDE 23 20-32 mmol/L CALCIUM 9.5 8.6-10.4 mg/dL REASON FOR REFERRAL Reason FAXED TO [facility] 07.14.2022 AR eval and treat, Aqua therapy Please contact our office within 7 days to notify [facility] of scheduled appointment Diagnosis 1 Pain of lower extrem ity, unspecified laterality (M79.606) Referral Organization [facility] Referring Provider First Name Langdon Referring Provider Last Name Diane Referring Provider Speciality Family Med icine Referred Provider [facility] Referred Provider Specialty Physical The rapist General Notes Angie Lockett RN 07/14/2022 01:33:15 PM >Please include most recent OV notesFili Ashley 07/14/2022 02:05:38 PM >FAXED TO [facility]. Referral Priority Routine Referral Appointment Date 08/01/2022 Reason FAXED TO [facility] 6.22.2 023 AR Please evaluate and treat Please contact our office within 7 days to notify [facility] of scheduled appointment Diagnosis 1 Bilateral hearing lo ss, unspecified hearing loss type (H91.93) Referral Organization [facility] Referring Provider First Name Langdon Referring Provider Last Name Diane Referring Provider [facility] ashley Referred Provider Dom Leon Referred Provider Specialty Otolaryngolo gy General Notes Cassie Penn 08/11 01:00:52 PM >FAXED TO [facility]. Referral Priority Routine Reason FAXED TO [facility] 12.21.2022 AR evaluate and treat Please contact our office within 7 days to notify [facility] of scheduled appointment Diagnosis 1 Rheumatoid arthritis involving right knee, unspecified whether rheumatoid factor present (M06.9) Referral Organization [facility] Referring Provider First Name Langdon Referring Provider Last Name Diane Referring Provider [facility] ashley Referred Provider [facility] Orthop edic SurgeryChase Referred Provider [facility]ty [facility] General Notes Cassie Penn 12/21 12:44:06 PM >FAXED TO [facility]. Referral Priority Routine MEDICATIONS Medication SIG (Take, Route, Frequency, Duration) Notes Start Date End Date Status Omeprazole 40 MG TAKE ONE CAPSULE BY MOUTH EVERY DAY 30 MINUTES BEFORE MORNING MEAL for 90 Active Losartan Potassium 25 MG TAKE ONE-HALF T ABLET BY MOUTH EVERY DAY for 30 Active Colace 100 MG 1 capsule as needed Orally Once a day Active Rosuvastatin Calcium 5 MG TAKE ONE TABLE T BY MOUTH EVERY DAY for 90 Active Cholecalciferol 50 MCG (1999 UT) 1 capsule Orally Once a day Active Clobetasol Propionate 0.05 % 1 application Externally Twice a day for 30 day(s) 11/04/2019 Active methylPREDNISolone 4 MG 1.5 tablet with food or milk Orally once daily taper 2mg per week Active Acetaminophen 500 MG 1-2 tablets Orally Twice a day 06/28/2021 Active Humira 40 MG/0.8ML as directed Subcutaneous every 2 weeks 11/30/2022 Active oxyBUTYnin Chloride ER 10 MG 1 tablet at bedtime Orally Once a day for 30 days 10/20/2022 Active IMMUNIZATIONS Vaccine Route Administration Date Status Comme nts COVID-19 Moderna 69673 Unknown 04/07/2020 Administered COVID-19 Moderna 83659 Unknown 05/05/2020 Administered COVID-19 Moderna 68125 Unknown 02/02/2021 Administered COVID-19 Moderna 35566 IM Intramuscular 09/21/2021 Adminis tered COVID-19 Pfizer BIVALENT Age 12 and older IM Intramuscular 01/06/2022 Administered Influenza Adult FluBlok high dose PURCHASED IM Intramuscular 12/28/2018 Administered Influenza Adult FluBlok high dose PURCHASED IM Intramuscular 11/04/2019 Administered Influenza Adult FluBlok high dose PURCHASED IM Intramuscular 11/09/2020 Administered Influenza Adult FluBlok high dose PURCHASED IM Intramuscular 12/15/2021 Administered Prevnar PCV 13 Adult 65+ Purchased 43704 IM Intramuscular 04/01/2019 Administered Prevnar PCV 20 36606 IM Intramuscular 12/29/2021 Administe red SHINGRIX [facility] [id number] Unknown 10/20/2022 Administered TDaP Adult [facility] [id number] Unknown 04/06/2022 Administered Zostavax [facility] [id number] Unknown 11/20/2013 Administered SOCIAL HISTORY Tobacco Use: Social History Observation Description Date Details (start date - stop date) Former Smoker 1945 - 08/26/2011 Sex Assigned At : Social History Observation Description Sex Assigned At Female OTHER TOBACCO USE: Question Answer Notes Are you an other tobacco user? No SMOKING STATUS: Question Answer Notes Are you a: Former smoker When did you start smoking? 1945 How often do you smoke cigarettes Everyday When did you stop smoking? 08/26/2011 How many cigarettes a day do you smoke 11 to 20 PRAPARE Question Answer Notes Date Completed/Updated: 03/15/2021 What is your current housing situation? I have h ousing Are you worried about losing your housing? No What is the highest level of school that you have finished? High school diploma or GED What is your current work situation? 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 Check all that apply I choose not to answer this question Has lack of transportation k ept you from medical appointments, meetings, work or from getting things needed for daily living? No How often do you see or talk to people that you care about and feel close to? (For example: talking to friends on the phone, visiting friends or family, going to pentecostalism or club meetings) More than 5 times a week How stressed are you? Stress is when someone feels tense, nervous, anxious, or can't sleep at night because their mind is troubled A little bit In the past year have you sp ent more than 2 nights in a row in a detention, senior living, fdc center, or juvenile correctional facility? No Are you a refugee? No What country are you from? [place] Do you feel physically and e motionally safe where you currently live? Yes In the past year, have you b een afraid of your partner or ex-partner? 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) Problem Depression, unspecified depression type (F32.9) Active confirmed 35146186 Problem Prediabetes (R73.03) Active confirmed 639117636 Problem Osteoporosis, unspecified osteoporosis type, unspecified pathological fracture presence (M81.0) Active confirmed 91085806 Problem Primary hypertension (I10) Active confirmed 55744678 Problem Overflow incontinence of urine (N39.490) Active confirmed 638804341 Problem Abdominal aortic aneurysm (AAA) without rupture, unspecified part (I71.40) Active confirmed 57593164 VITAL SIGNS Heart Rate 82 BPM 12/19/2022 Temperature 97.8 degrees Fahrenheit 12/19/2022 Respiratory Rate 18 /min 10/20/2022 Blood pressure diastolic 82 mmHg 12/19/2022 Oximetry 98 % 12/19/2022 Height 64 in 12/19/2022 Blood pressure systolic 142 mmHg 12/19/2022 Weight 176 lbs 12/19/2022 BMI 30.21 kg/m2 12/19/2022 PROCEDURES Procedure Date Ordered Date Performed Result Body Sit e JOINT INJECTION/ASPIRATION L ARGE SHOULDER, HIP, KNEE 01/12/2022 01/12/2022 N/A JOINT INJECTION/ASPIRATION L ARGE SHOULDER, HIP, KNEE 12/19/2022 12/19/2022 N/A GET UP AND GO TEST 12/19/2022 12/19/2022 fail Encounters Encounter Location Date Provider Diagnosis [address] [id number] 01/19/2022 Langdon Diane [address] [id number] 06/30/2022 Langdon Diane [address] [id number] 07/06/2022 Langdon Diane [address] [id number] 07/15/2022 Langdon Diane [address] [id number] 07/21/2022 Langdon Diane [address] [id number] 12/19/2022 Langdon Diane [address] [id number] 01/06/2022 Robel Montesinos MD Encounter for immunization Z23 [address] [id number] 01/12/2022 Langdon Diane Psoriatic arthritis L40.50 ; Overflow incontinence of urine N39.490 and Osteoporosis, unspecified osteoporosis type, unspecified pathological fracture presence M81.[address] [id number] 02/23/2022 Langdon Diane Psoriatic arthritis L40.50 ; GERD (gastroesophageal reflux disease) K21.9 ; Osteoporosis, unspecified osteoporosis type, unspecified pathological fracture presence M81.0 ; Prediabetes R73.03 and Benign paroxysmal positional vertigo, unspecified laterality H81.[address] [id number] 04/27/2022 Langdon Diane Psoriatic arthritis L40.50 ; Cough, unspecified type R05.9 and Dysfunction of Eustachian tube, unspecified laterality H69.[address] [id number] 05/04/2022 Langdon Diane Psoriatic arthritis L40.50 ; Cough, unspecified type R05.9 ; LLQ pain R10.32 and Community acquired pneumonia, unspecified laterality J18.[address] [id number] 05/11/2022 Nara Contreras Psoriatic arthritis L40.50 ; LLQ pain R10.32 and Community acquired pneumonia, unspecified laterality J18.[address] [id number] 07/06/2022 Nara Contreras Uncontrolled hypertension I10 ; Pain of lower extremity, unspecified laterality M79.606 and Abdominal aortic aneurysm (AAA) without rupture, unspecified part I71.[address] [id number] 07/25/2022 Nara Contreras Shortness of breath R06.02 ; Primary hypertension I10 and Cardiac murmur R01.[address] [id number] 08/17/2022 Nara Contreras Bilateral hearing loss, unspecified hearing loss type H91.93 ; Overflow incontinence of urine N39.490 and Cardiac murmur R01.[address] [id number] 10/20/2022 Nara Contreras Prediabetes R73.03 ; Overflow incontinence of urine N39.490 and Psoriatic arthritis L40.[address] [id number] 12/19/2022 Nara Contreras Annual physical exam Z00.00 ; Dietary counseling Z71.3 ; At risk for falling Z91.81 ; Encounter for screening for lung cancer Z12.2 ; Former smoker Z87.891 ; Prediabetes R73.03 ; Abdominal aortic aneurysm (AAA) without rupture, unspecified part I71.40 ; Rheumatoid arthritis involving right knee, unspecified whether rheumatoid factor present M06.9 and Overflow incontinence of urine N39.[address] [id number] 01/20/2022 Nara Contreras [address] [id number] 04/29/2022 Nara Contreras [address] [id number] 05/09/2022 Nara Contreras [address] [id number] 06/22/2022 Nara Contreras [address] [id number] 06/23/2022 Nara Contreras ER Visit ER [place] [address] [facility], [place] [id number] 06/27/2022 Langdon Diane [facility] [address] [facility], [place] [id number] 06/27/2022 Nara Contreras ER Visit ER [facility] [address] [facility], [place] [id number] 07/14/2022 Nara Contreras Pain of lower extremity, unspecified laterality M79.606 [facility] [address] [facility], [place] [id number] 07/14/2022 Langdondebora Caputon [facility] [address] [facility], [place] [id number] 07/14/2022 Langdondebora Caputon [facility] [address] [facility], [place] [id number] 08/10/2022 Naar Contreras Bilateral hearing loss, unspecified hearing loss type H91.93 [facility] [address] [facility], [place] [id number] 08/17/2022 Nara Caputon [facility] [address] [facility], [place] [id number] 09/29/2022 Nara Caputon [facility] [address] [facility], [place] [id number] 10/10/2022 Nara Caputon [facility] [address] [facility], [place] [id number] 10/17/2022 Langdon Diane [facility] [address] [facility], [place] [id number] 10/20/2022 Nara Contreras PRAPARE NEGATIVE PRA N [facility] [address] [facility], [place] [id number] 11/14/2022 Nara Caputon [facility] [address] [facility], [place] [id number] 11/16/2022 Nara Contreras [facility] [address] [facility], [place] [id number] 12/19/2022 Nara Contreras ASSESSMENTS Encounter Date Diagnosis Assessment Notes Treatment Notes Treatment Clinical Notes 04/27/2022 Cough, unspecified type (ICD-10 - R05.9) 06/23/2022 ER Visit (ICD9-CM - ER) 07/06/2022 Uncontrolled hypertension (ICD-10 - I10) 07/06/2022 Pain of lower extremity, unspecified laterality (ICD-10 - M79.606) 04/27/2022 Psoriatic arthritis (ICD-10 - L40.50) Pt to lab, sitting in chair. Venous blood draw, #23 G needle, Right AC, 1st attempt. Sample obtained, pressure bandage applied, pt tolerated well. Label applied to sample. NANCI Phipps 10/20/2022 PRAPARE NEGATIVE (ICD9-CM - PRAN) 10/20/2022 Prediabetes (ICD-10 - R73.03) 10/20/2022 Overflow incontinence of urine (ICD-10 - N39.490) 12/19/2022 Annual physical exam (ICD-10 - Z00.00) 08/17/2022 Bilateral hearing loss, unspecified hearing loss type (ICD-10 - H91.93) 08/17/2022 Overflow incontinence of urine (ICD-10 - N39.490) 08/10/2022 Bilateral hearing loss, unspecified hearing loss type (ICD-10 - H91.93) 07/25/2022 Shortness of breath (ICD-10 - R06.02) 07/25/2022 Primary hypertension (ICD-10 - I10) 07/14/2022 Pain of lower extremity, unspecified laterality (ICD-10 - M79.606) 05/11/2022 Psoriatic arthritis (ICD-10 - L40.50) 05/11/2022 LLQ pain (ICD-10 - R10.32) 05/04/2022 Psoriatic arthritis (ICD-10 - L40.50) 05/04/2022 Cough, unspecified type (ICD-10 - R05.9) 02/23/2022 Psoriatic arthritis (ICD-10 - L40.50) 01/12/2022 Overflow incontinence of urine (ICD-10 - N39.490) 01/06/2022 Encounter for immunization (ICD-10 - Z23) Patient presented requesting COVID vaccination. Screening questions reviewed with patient and patient was appropriate to vaccinate. Patient questions answered and Emergency Use Authorization Statements given. Patient tolerated the immunization well, was observed in clinic for the recommended interval, and left the clinic in stable condition. 01/12/2022 Psoriatic arthritis (ICD-10 - L40.50) 06/27/2022 ER Visit (ICD9-CM - ER) 01/12/2022 Osteoporosis, unspecified osteoporosis type, unspecified pathological fracture presence (ICD-10 - M81.0) 02/23/2022 GERD (gastroesophageal reflux disease) (ICD-10 - K21.9) 05/04/2022 LLQ pain (ICD-10 - R10.32) 05/11/2022 Community acquired pneumonia, unspecified laterality (ICD-10 - J18.9) 07/25/2022 Cardiac murmur (ICD-10 - R01.1) 08/17/2022 Cardiac murmur (ICD-10 - R01.1) 12/19/2022 Dietary counseling (ICD-10 - Z71.3) 10/20/2022 Psoriatic arthritis (ICD-10 - L40.50) 04/27/2022 Dysfunction of Eustachian tube, unspecified laterality (ICD-10 - H69.80) 07/06/2022 Abdominal aortic aneurysm (AAA) without rupture, unspecified part (ICD-10 - I71.40) 12/19/2022 At risk for falling (ICD-10 - Z91.81) 05/04/2022 Community acquired pneumonia, unspecified laterality (ICD-10 - J18.9) 02/23/2022 Osteoporosis, unspecified osteoporosis type, unspecified pathological fracture presence (ICD-10 - M81.0) 02/23/2022 Prediabetes (ICD-10 - R73.03) 12/19/2022 Former smoker (ICD-10 - Z87.891) 12/19/2022 Encounter for screening for lung cancer (ICD-10 - Z12.2) 12/19/2022 Prediabetes (ICD-10 - R73.03) 02/23/2022 Benign paroxysmal positional vertigo, unspecified laterality (ICD-10 - H81.10) 12/19/2022 Abdominal aortic aneurysm (AAA) without rupture, unspecified part (ICD-10 - I71.40) 12/19/2022 Rheumatoid arthritis involving right knee, unspecified whether rheumatoid factor present (ICD-10 - M06.9) 12/19/2022 Overflow incontinence of urine (ICD-10 - N39.490) 01/12/[address] Contreras by Lanie Caballero, medical representative, on 01/12/2022. I, Dr. Contreras, have personally reviewed and agreed with the information entered by the medical representative. Left ac venipuncture done with 23 g needle. Successful first attempt, bandaid applied. Pt tolerated it well. Barbi VELARDE 02/23/[address] Contreras by Lanie Caballero medical representative, on 02/23/2021. I, Dr. Contreras, have personally reviewed and agreed with the information entered by the medical representative. 04/27/[address] Contreras by Lanie Caballero medical representative, on 04/27/2022. I, Dr. Contreras, have personally reviewed and agreed with the information entered by the medical representative. 05/04/[address] Contreras by Lanie Caballero medical representative, 05/04/2022. I, Dr. Contreras, have personally reviewed and agreed with the information entered by the medical representative. 05/11/[address] Contreras by Lanie Caballero medical representative, on 05/11/2022. I, Dr. Contreras, have personally reviewed and agreed with the information entered by the medical representative. 07/06/[address] Contreras by Lanie Caballero medical representative, on 07/06/2022. I, Dr. Contreras, have personally reviewed and agreed with the information entered by the medical representative. 07/25/[address] Contreras by Lanie Caballero medical representative, on 07/25/2022. I, Dr. Contreras, have personally reviewed and agreed with the information entered by the medical representative. Right arm venipuncture done with 23 g needle. Successful first attempt. Pt tolerated it well. Bandaid applied Lab sent to [facility]. Barbi VELARDE 08/17/[address] Conrteras by Lanie Caballero medical representative, on 08/17/2022. I, Dr. Contreras, have personally reviewed and agreed with the information entered by the medical representative. 10/20/[address] Contreras by Lanie Ada, medical representative, on 10/20/2022. I, Dr. Contreras, have personally reviewed and agreed with the information entered by the medical representative. 12/19/[address] Contreras by Lanie Caballero, medical representative, on 12/19/2022. I, Dr. Contreras, have personally reviewed and agreed with the information entered by the medical representative. 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 GERD Osteoarthritis of knees and hips Former smoker quit in 2011- 45 pack year Lichen sclerosus (noted in old records m ay have been psoriasis) Osteoporosis diagnosed 11/2021: T score -2.7 Murmur- normal valves on echos in 2014 a nd 2022 Psoriasis diagnosed 2008 Fatty liver - diagnosed on U/S, was WNL except fatty infiltration Pre-diabetes psoriatic arthritis right lower lobe nodule and liver cysts found incidentally and stable over 9 months: 2020 cardiac event monitor 08/2021 normal 06/2022 : 2.7cm AAA, repeat US 06/202308/08/2022 echo: normal LV f unction with moderate hypertrophy, normal valves, normal aortic root, EF 77% Surgical History Surgery Date(Month/Year) Appendectomy childhood [facility]-Right knee arthroscop y 2008 diverticular abscess with percutaneous d rain 06/2020 partial sigmoidectomy with i leostomy for diverticular abscess and fistulae 05/2021 ileostomy take down and reanastomosis Hospitalization History Reason Date(Month/Year) Diverticulitis of a large intestine with complication 05/2021 Recurrent diverticular abscess 03/2021 [facility] -Recurrent diverticular abscess 2021 [facility]- diverticular abscess with percutaneous drainage 06/2020 [facility]- dizziness, vertigo 07/2014
== END ==
PROVIDERS: PCP Family Medicine; Visit Provider Family Medicine
DX: Z87.891 Personal history of nicotine dependence (principal); Z12.2 Encounter for screening for malignant neoplasm of respiratory organs
CPT/HCPCS: 71271

== ENCOUNTER 2023-01-14 23:51 | Emergency (ER) | payer MEDICARE, SELFPAY ==
[2023-01-15] VITALS (52 sets, daily range): BP systolic 119–173; BP diastolic 47–69; PULSE 89–102; RESP 14–32; TEMP 36.3; O2SAT 89–100
--- NOTE | 2023-01-15 | DI.RAD_ITS ---
Exam(s) XR CHEST 2V PA LATERAL EXAM: XR CHEST 2V PA LATERAL CLINICAL HISTORY: SOB TECHNIQUE: 2D digital imaging was performed of the chest. Two images were obtained. PA and lateral views were obtained. COMPARISON: CR XR CHEST 2V PA LATERAL from 08/19/[address] CHEST LUNG CANCER SCREEN from 12/30/2022 FINDINGS: MEDIASTINUM: Normal. HEART: Normal. PULMONARY VASCULATURE: Normal. LUNGS: There are increased lung markings in the right mid lung in the medial aspect of the right lung base. The left lung appears clear. PLEURAL SPACE: No pleural effusion or pneumothorax. BONE:Within normal limits for the patient's age. OTHER FINDINGS:Normal. IMPRESSION: Right-sided opacities which may represent atelectasis or pneumonia. Please correlate clinically. DATA REPOSITORY: RADIATION DOSE DELIVERED:
--- NOTE | 2023-01-15 00:14 | ED.GENADUL_ITS ---
Discharge Plan Disposition Patient Disposition: Home Condition: Stable Discharge Details Clinical Impression: Cough, Pneumonia Primary Care Provider: Nara Contreras ED Provider: Paulie Rios Home Meds and New Rx's Prescriptions: New amoxicillin-pot clavulanate 875-125 mg tablet 1 tab PO BID 7 Days Qty: 14 0RF benzonatate 100 mg capsule 100 mg PO BID-TID PRN (Reason: cough) Qty: 10 0RF promethazine 6.25 mg/5 mL syrup 12.5 mg PO Q6H PRN (Reason: cough) Qty: 200 0RF Continued losartan 25 mg tablet 12.5 mg PO DAILY methylprednisolone 2 mg tablet 2 mg PO DAILY vitamin B complex Tablet 1 tab PO DIRECTED acetaminophen 500 mg capsule 500 mg PO Q6H PRN clobetasol 0.05 % cream 1 applic topical BID PRN docusate sodium [Colace] 100 mg capsule 100 mg PO DAILY PRN omeprazole 20 mg capsule,delayed release(DR/EC) 20 mg PO DAILY Patient Comments: TAKE ONE CAPSULE BY MOUTH EVERY DAY 30 MINUTES BEFORE MORNING MEAL rosuvastatin 5 mg tablet 5 mg PO QPM Patient Comments: TAKE ONE TABLET BY MOUTH EVERY DAY cholecalciferol (vitamin D3) [Vitamin D3] 50 mcg (2,000 unit) Tablet 50 mcg PO DAILY methylprednisolone 4 mg tablet 8 mg PO DAILY Patient Comments: TAKE 4 TABLETS DAILY AFTER BREAKFAST FOR 5 DAYS; THEN 3 TABLETS DAILY FOR 5 DAYS; THEN 1 TABLET DAILY FOR 5 DAYS Simponi ARIA 12.5 mg/mL Solution 150 mg IV Q8W Rx Instructions: administer over 30 mins Discharge Instructions Additional Instructions: start new antibiotic, can finish the last dose of the z pack take cough medicines as needed follow up with your PCP on Monday for re-evaluation return to the ED if you are having any worsening of symptoms or difficulty breathing Medical Decision Making Emergent evaluation of cough and shortness of breath. Initial differential includes viral illness, pneumonia, CHF. Patient is a former smoker but denies current smoking. She is currently on antibiotics, Z-Lexa prescribed by her PCP. She had a recent chest CT on December 30 for surveillance due to her cancer risk because of smoking. This did not reveal an acute abnormality. At this time she is fairly tight, I will give an bronchodilator and reassess. Will get chest x- ray, viral testing and blood work 0100: Patient has received DuoNeb, but declines that she is improved at all. Her air movement has improved. She is not wheezing. She does have some crackle breath sounds at the bases, worse on the right. I reviewed her chest x-ray, there is some concern for some interstitial infiltrates versus pulmonary edema. Will evaluate the rest of the labs 0230 : Patient feels much better after Phenergan syrup. Her vitals remained stable, not hypoxic or requiring oxygen. Her curb 65 is 1. Although she is been on antibiotics, I do feel that she needs to be admitted to the hospital. I will place her on Augmentin she does have some slight elevation of her BNP would likely benefit from an outpatient echo however this symptom is not a hannah heart failure exacerbation. Discussed options with the patient of hospitalization versus discharge and the patient agrees that she feels good enough to go home. I will discharge her with cough medication and the plan to follow-up with her primary care doctor on Monday. Strict return precautions advised. If she has any worsening at that point she would likely need hospitalization. Medical Records Medical records reviewed: Yes I reviewed the patient's medical records. Lab Data Lab results reviewed: Yes I reviewed the patient's lab results. HPI General Date/Time Provider Initiated Documentation: 01/14/23 23:55 . Limitations to Documentation: no limitations . Information obtained by: patient and family () . HPI Narrative: 77-year-old female with past medical history including diverticulosis, remote tobacco use presents for evaluation of cough. Symptoms have been ongoing for about 10 days. She contacted her physician who prescribed her a Z-Lexa which she has been taking. She states that her symptoms are not improving. She states that she has pain with her cough. She has been measuring a temperature of 99 to 100 degrees. She states that her cough is productive but it hurts to cough so she is avoiding doing so. She denies any nausea or vomiting. Denies any chest pain. She reports that she has received updated flu and COVID-vaccine Related Data Home Medications Medication Instructions Recorded Confirmed cholecalciferol (vitamin D3) 50 50 mcg PO DAILY 06/23/20 09/27/22 mcg (2,000 unit) tablet (Vitamin D3) omeprazole 20 mg capsule,delayed 20 mg PO DAILY 06/23/20 09/27/22 release rosuvastatin 5 mg tablet 5 mg PO QPM 06/23/20 09/27/22 methylprednisolone 4 mg tablet 8 mg PO DAILY 06/22/22 06/24/22 golimumab 12.5 mg/mL intravenous 150 mg IV Q8W 06/24/22 09/27/22 solution (Simponi ARIA) acetaminophen 500 mg capsule 500 mg PO Q6H PRN 08/22/22 09/27/22 clobetasol 0.05 % topical cream 1 applic topical BID PRN 08/22/22 09/27/22 docusate sodium 100 mg capsule 100 mg PO DAILY PRN 08/22/22 09/27/22 (Colace) losartan 25 mg tablet 12.5 mg PO DAILY 08/22/22 09/27/22 methylprednisolone 2 mg tablet 2 mg PO DAILY 08/22/22 09/27/22 vitamin B complex 1 tab PO DIRECTED 08/22/22 09/27/22 amoxicillin 875 mg-potassium 1 tab PO BID 7 days #14 tabs 01/15/23 clavulanate 125 mg tablet benzonatate 100 mg capsule 100 mg PO BID-TID PRN cough #10 01/15/23 caps promethazine 6.25 mg/5 mL oral 12.5 mg (10 mL) PO Q6H PRN cough 01/15/23 syrup #200 mL Previous Rx's Medication Instructions Recorded amoxicillin 875 mg-potassium 1 tab PO BID 7 days #14 tabs 01/15/23 clavulanate 125 mg tablet benzonatate 100 mg capsule 100 mg PO BID-TID PRN cough #10 01/15/23 caps promethazine 6.25 mg/5 mL oral 12.5 mg (10 mL) PO Q6H PRN cough 01/15/23 syrup #200 mL Allergies Allergy/AdvReac Type Severity Reaction Status Date / Time lidocaine Allergy Severe Flushing Unverified 09/27/22 11:44 of face doxycycline Allergy Verified 09/27/22 11:44 duloxetine [From Cymbalta] Allergy Verified 09/27/22 11:44 Latex, Natural Rubber Allergy Unverified 09/27/22 11:44 leflunomide [From Arava] Allergy Verified 09/27/22 11:44 lisinopril Allergy Verified 09/27/22 11:44 mirtazapine Allergy Verified 09/27/22 11:44 simvastatin Allergy Verified 09/27/22 11:44 codeine AdvReac Intermediate Nausea Unverified 09/27/22 11:44 ciprofloxacin AdvReac Mild GI Upset Unverified 09/27/22 11:44 General Stated Complaint: RespSymp PATRICE: 3 PFSH All Active Problems Pneumonia (Acute) Cough (Acute) Bilateral sensorineural hearing loss (Acute) 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 episodic diverticulitis - last episode three weeks ago H/O surgical procedure (Chronic) a. arthroscopic left knee surgery b. tubal ligation c. appendectomy as a child Medical History AAA (abdominal aortic aneurysm) Psoriatic arthritis Pre-diabetes Fatty liver Heart murmur Lichen sclerosus Former smoker Osteoarthritis of both hips Osteoarthritis of both knees GERD (gastroesophageal reflux disease) Hiatal hernia with GERD Diverticulitis of intestine with abscess Psoriasis Hyperlipidemia Surgical History History of open sigmoidectomy Ligation of fallopian tube Arthroplasty of knee (~05/2009) right knee torn medial and lateral meniscus; Meniscectomy and chonfroplasty of medial femoral condyle. Appendectomy Family History Mother Diabetes Heart disease Father , PNEUMONIA at age 92. Heart disease Hyperlipidemia Sister Alcohol abuse Sister Heart disease Grandfather Heart disease Grandfather No problems noted. Grandmother Asthma Grandmother No problems noted. Sister Neoplasm LEUKEMIA Son No problems noted. Daughter No problems noted. Daughter No problems noted. Daughter No problems noted. Sister , CHILDBIRTH at age 21. No problems noted. Social History Smoking/Tobacco Use Status: Former Tobacco Use Smoking risk assessment performed?: Yes Alcohol Intake: never Drug use: Never Substance use type: does not use Housing: house Do you feel safe at home: Yes Do you feel safe in your relationship?: Yes Exam Narrative Exam Narrative: Review of Systems: All systems reviewed & are unremarkable except as noted in HPI and below: CONSTITUTIONAL: Alert and oriented Well-developed, no acute distress HEENT: NACT EYES: PERRL, no conjunctival injection EARS: no external abnormality NOSE nares patent MOUTH Moist MM NECK: Symmetric, trachea midline, No thyromegaly THROAT oropharynx clear CVS: RRR, No murmurs or gallops. No peripheral edema RESP: Mild tachypnea, no hypoxia Tight breath sounds bilaterally, not great air movement GI: Soft, Nontender, Nondistended, No organomegaly MSK: Extremities with full range of motion, no deformity or TTP SKIN: Warm, Dry. No rashes or lesions. NEURO: No focal neurologic deficits. Course Vital Signs Vital signs: Vital Signs Temperature 36.3 C L 01/15/23 00:04 Pulse 97 H 01/15/23 00:04 Respiratory Rate 20 01/15/23 00:04 Blood Pressure 173/69 H 01/15/23 00:04 Pulse Oximetry 94 01/15/23 00:04 Temperature 36.3 C L 01/15/23 00:04 Temperature Source Temporal Artery Scan 01/15/23 00:04 Pulse 97 H 01/15/23 00:04 Respiratory Rate 20 01/15/23 00:04 Blood Pressure 173/69 H 01/15/23 00:04 Pulse Oximetry 94 01/15/23 00:04 Oxygen Delivery Method Room Air 01/15/23 00:04 Oxygen Flow Rate 0 01/15/23 00:04 Lab/Test Results Lab/Test Results: 01/15/23 00:12 Blood Blood Culture - Pending 01/15/23 00:12 Blood Blood Culture - Pending
[2023-01-15] MEDS: Albuterol/Ipratropium 3 ML UPD VIAL UPD (00:24)
[2023-01-15 00:41] LABS: Abs Immature Grans 0.05 10^3/uL (0.0-0.06); Absolute Basophil Count 0.05 10^3/uL (0.0-0.2); Absolute Eosinophil Count 0.46 10^3/uL (0.0-0.7); Absolute Lymphocyte Count 1.77 10^3/uL (1.2-3.4); Absolute Monocyte Count 0.71 10^3/uL (0.1-0.8); Absolute Neutrophil Count 5.04 10^3/uL (1.2-6.7); Basophils % 0.6; Eosinophils % 5.7; HCT 34.7 % (36.0-46.0); HGB 10.4 g/dL (11.2-15.7); Immature Grans % 0.6; Lymphocytes % 21.9; MCH 24.4 pg (27.0-33.0); MCV 81 fL (80-95); MPV 9.3 fL (8.0-11.0); Monocytes % 8.8; Neutrophils % 62.4; Platelet Count 383 10^3/uL (130-400); RBC 4.27 10^6/uL (3.93-5.22); RDW 18.3 % (11.7-14.6); RDW-SD 53.2 fL; WBC 8.08 10^3/uL (4.4-10.8)
--- NOTE | 2023-01-15 00:51 | DI.VRAD_ITS ---
PROCEDURE INFORMATION: Exam: XR Chest Exam date and time: 01/15/2023 12:30 AM Age: 77 years old Clinical indication: Shortness of breath; Patient HX: SOB TECHNIQUE: Imaging protocol: Radiologic exam of the chest. Views: 2 views. COMPARISON: CT CHEST LUNG CANCER SCREEN 12/30/2022 3:12 PM FINDINGS: Lungs: There is mild pulmonary venous congestion. There is mild diffuse interstitial edema. Underlying inflammatory or infectious process not excluded. Pleural spaces: There are no pleural effusions. No evidence of pneumothorax. Heart/Mediastinum: The heart is mildly enlarged. There is prominence of the mediastinum. Bones/joints: The skeletal structures and soft tissues show no evidence of fracture or other acute processes. Soft tissues: The soft tissues of the extrathoracic region are unremarkable. IMPRESSION: Probable mild congestive heart failure. Underlying inflammatory or infectious process not excluded. Dictated and Authenticated by: Dusty Cleveland MD. Ordering:DANIEL Tan MD
[2023-01-15 01:02] LABS: NT-proBNP 239 pg/mL (<300)
[2023-01-15 01:04] LABS: ALT 23 U/L (14-59); AST 22 U/L (15-37); Albumin 3.1 g/dL (3.4-5.0); Alkaline Phosphatase 59 U/L (46-116); BUN 13 mg/dL (7-18); Bilirubin, Total 0.5 mg/dL (0.2-1.0); CREATININE 1.3 mg/dL (0.55-1.02); Calcium 9.9 mg/dL (8.5-10.1); Chloride 103 mmol/L (98-107); Estimated GFR 42.35 (mL/min/1.73m2); Glucose 124 mg/dL (74-106); Potassium 3.8 mmol/L (3.5-5.1); Sodium 139 mmol/L (136-145); Total Protein 7.2 g/dL (6.4-8.2); Troponin I < 50 ng/L (<or=60)
[2023-01-15 01:17] LABS: COVID-19 PCR Negative (Negative); Influenza A PCR Negative (Negative); Influenza B PCR Negative (Negative); RSV PCR Negative (Negative); Source Nasopharynx
== END 2023-01-15 03:01 | disposition home or self-care (01) ==
PROVIDERS: Emergency Provider Emergency Medicine; PCP Family Medicine
DX: J18.9 Pneumonia, unspecified organism (principal); R05.9 Cough, unspecified
CPT/HCPCS: 80053; 87040; 87637; 99283; 71046; 83880; 84484; 85025; 99284; J7620

== ENCOUNTER 2023-01-31 10:34 | Emergency (ER) | payer MEDICARE, SELFPAY ==
[2023-01-31] VITALS (20 sets, daily range): BP systolic 133–164; BP diastolic 61–92; PULSE 85–127; RESP 13–27; TEMP 36.4; O2SAT 94–98
--- OUTSIDE RECORDS SUMMARY | 2023-01-31 10:42 | XMS_ITS | Patient Health Record ---
Author Name Unknown Organization [facility] Address [address] [place] [phone] Care Team Providers Care Crm Analyst Name Role Phone DianeNara castano Primary Care Provider ALLERGIES Allergen (clinical drug ingredient) Drug/Non Drug [...] Active RESULTS Component Value Reference Range Notes ELECTROCARDIOGRAM EKG IH Reviewed date:01/19/2023 04:18:30 PM Interpretation:Sinus tachycardia at 113, no ischemic changes. There is interventricular conduction delay in the V1-4 which was seen on EKG from 07/2021. Performing Lab: Notes/Report: Sinus tachycardia at 113, no ischemic changes. There is interventricular conduction delay in the V1-4 which was seen on EKG from 07/2021. Results: Xpert Xpress PCR SARS-CoV-2 Flu RSV assay Reviewed date:01/06/2023 11:11:40 AM Interpretation:Negative Performing Lab: Notes/Report: Negative COVID19 Negative Influenza A Negative Influenza B Negative RSV Negative CT Chest Low Dose Lung Cance r Screening Reviewed date:01/03/2023 09:11:31 AM Interpretation:12/30/22 Performing Lab: Notes/Report: 12/30/22 Result: HGA1C FINGERSTICK Reviewed date:10/20/2022 12:13:15 PM Interpretation:5.6 Performing Lab: Notes/Report: 5.6 HGA1C 5.6 4 - 7 Echocardiogram Reviewed date:08/17/2022 03:01:12 PM Interpretation:08/08/22 Performing Lab: Notes/Report: 08/08/22 Ejection Fraction % BMP Reviewed date:07/28/2022 08:52:38 AM Interpretation: Performing Lab:[facility]1, [facility], [address] [place], [phone] Anil Buchanan M.D. Notes/Report: FASTING: UNKNOWN Received Date: GLUCOSE 136 65-99 mg/dL Fasting reference interval [...] Creatinine or Cystatin C result, go to [email or web address] g/[email or web address]/ [email or web address] r BUN/CREATININE RATIO 30 6-22 (calc) SODIUM 139 135-146 mmol/L POTASSIUM 4.1 3.5-5.3 mmol/L CHLORIDE 106 98-110 mmol/L CARBON DIOXIDE 23 20-32 mmol/L CALCIUM 9.5 8.6-10.4 mg/dL CBC WITH DIFF Reviewed date:04/28/2022 10:47:07 AM Interpretation: Performing Lab:[facility], [facility], [address] [place], [address] Anil Buchanan M.D. Notes/Report: Received Date: [id number] WHITE BLOOD CELL COUNT 12.6 3.8-10.8 Thousand/ uL RED BLOOD CELL COUNT 4.73 3.80-5.10 Million/uL HEMOGLOBIN 12.2 11.7-15.5 g/dL HEMATOCRIT 38.4 35.0-45.0 % MCV 81.2 80.0-100.0 fL MCH 25.8 27.0-33.0 pg MCHC 31.8 32.0-36.0 g/dL RDW 15.9 11.0-15.0 % PLATELET COUNT 364 140-400 Thousand/uL MPV 11.1 7.5-12.5 fL ABSOLUTE NEUTROPHILS 49076 1151-5816 cells/uL ABSOLUTE LYMPHOCYTES 8769 289-2527 cells/uL ABSOLUTE MONOCYTES 554 200-950 cells/uL ABSOLUTE EOSINOPHILS 151 15-500 cells/uL ABSOLUTE BASOPHILS 38 0-200 cells/uL NEUTROPHILS 84.6 LYMPHOCYTES 9.5 MONOCYTES 4.4 EOSINOPHILS 1.2 BASOPHILS 0.3 CMP Reviewed date:04/28/2022 10:47:07 AM Interpretation: Performing Lab:[facility]1, [facility], [address] [place] [address], [phone] Anil Buchanan M.D. Notes/Report: Received Date: GLUCOSE [...] Creatinine or Cystatin C result, go to [email or web address] g/professionals/ [email or web address] r BUN/CREATININE RATIO NOT APPLICABLE 6-22 (calc) SODIUM [...] Notes/Report: 5.3 HGA1C 5.3 4 - 7 PRO-BNP (NT PRO BNP) Reviewed date:01/24/2023 01:40:44 PM Interpretation:239 Performing Lab: Notes/Report: 239 NT-PROBNP 239 REASON FOR REFERRAL Reason FAXED TO [facility] 07.14.2022 AR eval and treat, Aqua therapy Please contact our office within [address] [facility] of scheduled appointment Diagnosis 1 Pain of lower extrem ity, unspecified laterality (M79.606) Referral Organization [facility] Referring Provider First Name [place] Referring Provider Last Name Diane Referring Provider [facility] ashley Referred Provider [facility] Referred Provider Specialty Physical The rapist General Notes Angie Lockett RN 07/14/2022 01:33:15 PM >Please include most recent OV notesFili Ashley 07/14/2022 02:05:38 PM >FAXED TO [facility]. Referral Priority Routine Referral Appointment Date 08/01/2022 Reason FAXED TO [facility] 6.22.2 023 AR Please evaluate and treat Please contact our office within [address] [facility] of scheduled appointment Diagnosis 1 Bilateral hearing lo ss, unspecified hearing loss type (H91.93) Referral Organization [facility] Referring Provider First Name [place] Referring Provider Last Name Diane Referring Provider [facility] ashley Referred Provider Dom Leon Referred Provider Specialty Otolaryngolo gy General Notes Cassie Penn 08/11 01:00:52 PM >FAXED TO [facility]. Referral Priority Routine Reason FAXED TO [facility] 12.21.2022 AR evaluate and treat Please contact our office within 7 days to notify [facility] of scheduled appointment Diagnosis 1 Rheumatoid arthritis involving right knee, unspecified whether rheumatoid factor present (M06.9) Referral Organization [facility] Referring Provider First Name [place] Referring Provider Last Name Diane Referring Provider [facility] ashley Referred Provider [facility] Orthop edic Surgery, [place] Referred Provider Specialty Orthopedic S urgery General Notes Cassie Penn 12/21 12:44:06 PM >FAXED TO [facility]. Referral Priority Routine MEDICATIONS Medication SIG (Take, Route, Frequency, Duration) Notes Start Date End Date Status oxyBUTYnin Chloride ER 10 MG 1 tablet at bedtime Orally Once a day for 30 days 10/20/2022 Active Colace 100 MG 1 capsule as needed Orally Once a day Active Rosuvastatin Calcium 5 MG TAKE ONE TABLET BY MOUTH EVERY DAY for 90 Active Omeprazole 40 MG TAKE ONE CAPSULE BY MOUTH EVERY DAY 30 MINUTES BEFORE MORNING MEAL for 90 Active Losartan Potassium 25 MG TAKE ONE-HALF TABLET BY MOUTH EVERY DAY for 30 Active Humira 40 MG/0.8ML as directed Subcutaneous every 2 weeks 11/30/2022 Active methylPREDNISolone 4 MG 1.5 tablet with food or milk Orally once daily taper 2mg per week Active Acetaminophen 500 MG 1-2 tablets Orally Twice a day 06/28/2021 Active Cholecalciferol 50 MCG (1999 UT) 1 capsule Orally Once a day Active Clobetasol Propionate 0.05 % 1 application Externally Twice a day for 30 day(s) 11/04/2019 Active Zithromax Z-Lexa 250 MG as directed Orall y once per day for 5 days take 2 tabs once per day the first day followed by one tab once per day until completed. 01/11/2023 Not-Taking Promethazine HCl 6.25 MG/5ML 10 mL as needed Orally every 6 hrs 01/14/2023 Active Benzonatate 100 MG 1 capsule as needed Orally Three times a day for 20 days 01/14/2023 Active IMMUNIZATIONS Vaccine Route Administration Date Status Comme nts Zostavax [facility] [id number] Unknown 11/20/[address] [facility] [id number] Unknown 04/06/[address] [facility] [id number] Unknown 10/20/2022 Administered Prevnar PCV 20 96896 IM Intramuscular 12/29/2021 Administe red Prevnar PCV 13 Adult 65+ Purchased 22590 IM Intramuscular 04/01/2019 Administered Influenza Adult FluBlok high dose PURCHASED IM Intramuscular 12/28/2018 Administered Influenza Adult FluBlok high dose PURCHASED IM Intramuscular 11/04/2019 Administered Influenza Adult FluBlok high dose PURCHASED IM Intramuscular 11/09/2020 Administered Influenza Adult FluBlok high dose PURCHASED IM Intramuscular 12/15/2021 Administered COVID-19 Pfizer BIVALENT Age 12 and older IM Intramuscular 01/06/2022 Administered COVID-19 Moderna 47124 Unknown 04/07/2020 Administered COVID-19 Moderna 70623 Unknown 05/05/2020 Administered COVID-19 Moderna 90159 Unknown 02/02/2021 Administered COVID-19 Moderna 77659 IM Intramuscular 09/21/2021 Adminis tered SOCIAL HISTORY Tobacco Use: Social History Observation [...] 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 Stress is when someone feels tense, nervous, anxious, or can't sleep at night because their mind is troubled A little bit In the past year have you sp ent more than 2 nights in a row in a chcf, nursing home, penitentiary center, or juvenile correctional facility? No Are [...] Notes Problem Hyperlipidemia (E78.5) Active confirmed Hyperlipidemia (70799468) Problem GERD (gastroesophageal reflux disease) (K21.9) Active confirmed Gastroesophagea l reflux disease (759627919) Problem Psoriasis (L40.9) Active confirmed 9014 002 Problem Psoriatic arthritis (L40.50) Active confirmed 192328245 Problem Fatty liver (K76.0) Active confirmed 372377803 Problem Lichen sclerosus et atrophicus of the vulva (N90.4) Active confirmed Leukoplaki a of vulva (976862527) Problem Depression, unspecified depression type (F32.9) Active confirmed 54338806 Problem Prediabetes (R73.03) Active confirmed 315673227 Problem Osteoporosis, unspecified osteoporosis type, unspecified pathological fracture presence (M81.0) Active confirmed 23555364 Problem Primary hypertension (I10) Active confirmed 01764440 Problem Congestive heart failure, unspecified HF chronicity, unspecified heart failure type (I50.9) Active confirmed 96464568 Problem Abnormal chest CT (R93.89) Active confirmed 56224095800883917 Problem Overflow incontinence of urine (N39.490) Active confirmed 682748499 Problem Abdominal aortic aneurysm (AAA) without rupture, unspecified part (I71.40) Active confirmed 93026238 VITAL SIGNS Heart Rate 91 BPM 01/26/2023 Temperature 98.0 degrees Fahrenheit 01/26/2023 Respiratory Rate 18 /min 01/04/2023 Oximetry 98 % 01/26/2023 Blood pressure diastolic 86 mmHg 01/26/2023 Height 64 in 01/26/2023 Blood pressure systolic 126 mmHg 01/26/2023 Weight 174.4 lbs 01/26/2023 BMI 29.93 kg/m2 01/26/2023 PROCEDURES Procedure Date Ordered Date Performed Result Body Sit e GET UP AND GO TEST 12/19/2022 12/19/2022 fail JOINT INJECTION/ASPIRATION L ARGE SHOULDER, HIP, KNEE 12/19/2022 12/19/2022 N/A Encounters Encounter Location Date Provider Diagnosis [address], [place] [id number] 06/30/2022 Nara Caputon [address], [place] [id number] 07/06/2022 [place] Diane [address], [place] [id number] 07/15/2022 [place] Diane [address], [place] [id number] 07/21/2022 [place] Diane [address], [place] [id number] 12/19/2022 [place] Diane [address], [place] [id number] 01/26/2023 [place] Contreras Pneumonia of both up per lobes due to infectious organism J18.9 ; Psoriatic arthritis L40.[address] R93.[address], [place] [id number] 02/23/2022 [place] Contreras Psoriatic arthritis L40.50 ; GERD (gastroesophageal reflux disease) K21.9 ; Osteoporosis, unspecified osteoporosis type, unspecified pathological fracture presence M81.0 ; Prediabetes R73.03 and Benign paroxysmal positional vertigo, unspecified laterality H81.[address], [place] [id number] 04/27/2022 [place] Contreras Psoriatic arthritis L40.50 ; Cough, unspecified type R05.9 and Dysfunction of Eustachian tube, unspecified laterality H69.[address], [place] [id number] 05/04/2022 Nara Contreras Psoriatic arthritis L40.50 ; Cough, unspecified type R05.9 ; LLQ pain R10.32 and Community acquired pneumonia, unspecified laterality J18.[address], [place] [id number] 05/11/2022 [place] Contre[place] Psoriatic arthritis L40.50 ; LLQ pain R10.32 and Community acquired pneumonia, unspecified laterality J18.[address], [place] [id number] 07/06/2022 Nara Contreras Uncontrolled hyperte nsion I10 ; Pain of lower extremity, unspecified laterality M79.606 and Abdominal aortic aneurysm (AAA) without rupture, unspecified part I71.[address], [place] [id number] 07/25/2022 Nara Contreras Shortness of breath R06.02 ; Primary hypertension I10 and Cardiac murmur R01.[address] [id number] 08/17/2022 Nara Contreras Bilateral hearing lo ss, unspecified hearing loss type H91.93 ; Overflow incontinence of urine N39.490 and Cardiac murmur R01.[address] [id number] 10/20/2022 Nara Contreras Prediabetes R73.03 ; Overflow incontinence of urine N39.490 and Psoriatic arthritis L40.[address] [id number] 12/19/2022 Nara Contreras Annual physical exam Z00.00 ; Dietary counseling Z71.3 ; At risk for falling Z91.81 ; Encounter for screening for lung cancer Z12.2 ; Former smoker Z87.891 ; Prediabetes R73.03 ; Abdominal aortic aneurysm (AAA) without rupture, unspecified part I71.40 ; Rheumatoid arthritis involving right knee, unspecified whether rheumatoid factor present M06.9 and Overflow incontinence of urine N39.[address] [id number] 01/04/2023 Nara Contreras Viral URI with cough J06.9 and Psoriatic arthritis L40.[address] [id number] 01/19/2023 Nara Contreras SOB (shortness of br eath) R06.02 ; Psoriatic arthritis L40.50 and Congestive heart failure, unspecified HF chronicity, unspecified heart failure type I50.[address] [id number] 01/26/2023 Nara Contreras [address] [id number] 04/29/2022 Nara Contreras [address] [id number] 05/09/2022 Nara Contreras [address] [id number] 06/22/2022 Nara Contreras [address] [id number] 06/23/2022 Nara Contreras ER Visit ER [address] [place] [id number] 06/27/2022 Nara Diane [facility] [address] [facility], [place] [id number] 06/27/2022 Nara Contreras ER Visit [facility] [address] [facility], [place] [id number] 07/14/2022 Nara Contreras Pain of lower extrem ity, unspecified laterality M79.606 [facility] [address] [facility], [place] [id number] 07/14/2022 [place] Caputon [facility] [address] [facility], [place] [id number] 07/14/2022 [place] Caputon [facility] [address] [facility], [place] [id number] 08/10/2022 Nara Contreras Bilateral hearing lo ss, unspecified hearing loss type H91.93 [facility] [address] [facility], [place] [id number] 08/17/2022 Nara Caputon [facility] [address] [facility], [place] [id number] 09/29/2022 Nara Caputon [facility] [address] [facility], [place] [id number] 10/10/2022 Nara Caputon [facility] [address] [facility], [place] [id number] 10/17/2022 Nara Caputon [facility] [address] [facility], [place] [id number] 10/20/2022 Nara Contreras PRAPARE NEGATIVE PRA N [facility] [address] [facility], [place] [id number] 11/14/2022 Nara Diane [facility] [address] [facility], [place] [id number] 11/16/2022 Nara Diane [facility] [address] [facility], [place] [id number] 12/19/2022 [place] Diane [facility] [address] [facility], [place] [id number] 01/02/2023 [facility] [address] [facility], [place] [id number] 01/10/2023 Nara Contreras Upper respiratory tr act infection, unspecified type J06.9 [facility] [address] [facility], [place] [id number] 01/16/2023 [facility] [address] [facility] [id number] 01/16/2023 Nara Contreras [address] [id number] 01/20/2023 Nara Contreras ER Visit ER [address] [id number] 01/20/2023 Nara Contreras ASSESSMENTS Encounter Date Diagnosis Assessment Notes Treatment Notes Treatment Clinical Notes 02/23/2022 Psoriatic arthritis (ICD-10 - L40.50) 04/27/2022 Psoriatic arthritis (ICD-10 - L40.50) Pt to lab, sitting in chair. Venous blood draw, #23 G needle, Right AC, 1st attempt. Sample obtained, pressure bandage applied, pt tolerated well. Label applied to sample. NANCI Phipps 04/27/2022 Cough, unspecified type (ICD-10 - R05.9) 05/04/2022 Psoriatic arthritis (ICD-10 - L40.50) 05/04/2022 Cough, unspecified type (ICD-10 - R05.9) 05/11/2022 Psoriatic arthritis (ICD-10 - L40.50) 05/11/2022 LLQ pain (ICD-10 - R10.32) 06/23/2022 ER Visit (ICD9-CM - ER) 06/27/2022 ER Visit (ICD9-CM - ER) 07/06/2022 Uncontrolled hypertension (ICD-10 - I10) 07/06/2022 Pain of lower extremity, unspecified laterality (ICD-10 - M79.606) 07/14/2022 Pain of lower extremity, unspecified laterality (ICD-10 - M79.606) 07/25/2022 Shortness of breath (ICD-10 - R06.02) 07/25/2022 Primary hypertension (ICD-10 - I10) 08/10/2022 Bilateral hearing loss, unspecified hearing loss type (ICD-10 - H91.93) 08/17/2022 Bilateral hearing loss, unspecified hearing loss type (ICD-10 - H91.93) 08/17/2022 Overflow incontinence of urine (ICD-10 - N39.490) 10/20/2022 PRAPARE NEGATIVE (ICD9-CM - PRAN) 10/20/2022 Prediabetes (ICD-10 - R73.03) 10/20/2022 Overflow incontinence of urine (ICD-10 - N39.490) 12/19/2022 Annual physical exam (ICD-10 - Z00.00) 01/04/2023 Viral URI with cough (ICD-10 - J06.9) 01/10/2023 Upper respiratory tract infection, unspecified type (ICD-10 - J06.9) 01/16/2023 ER Visit (ICD9-CM - ER) 01/19/2023 SOB (shortness of breath) (ICD-10 - R06.02) 01/19/2023 Psoriatic arthritis (ICD-10 - L40.50) 01/20/2023 ER Visit (ICD9-CM - ER) 01/26/2023 Psoriatic arthritis (ICD-10 - L40.50) 01/26/2023 Pneumonia of both upper lobes due to infectious organism (ICD-10 - J18.9) 01/26/[address] (ICD-10 - R93.89) 01/19/2023 Congestive heart failure, unspecified HF chronicity, unspecified heart failure type (ICD-10 - I50.9) 01/04/2023 Psoriatic arthritis (ICD-10 - L40.50) 12/19/2022 Dietary counseling (ICD-10 - Z71.3) 10/20/2022 Psoriatic arthritis (ICD-10 - L40.50) 08/17/2022 Cardiac murmur (ICD-10 - R01.1) 07/25/2022 Cardiac murmur (ICD-10 - R01.1) 07/06/2022 Abdominal aortic aneurysm (AAA) without rupture, unspecified part (ICD-10 - I71.40) 05/11/2022 Community acquired pneumonia, unspecified laterality (ICD-10 - J18.9) 05/04/2022 LLQ pain (ICD-10 - R10.32) 04/27/2022 Dysfunction of Eustachian tube, unspecified laterality (ICD-10 - H69.80) 02/23/2022 GERD (gastroesophageal reflux disease) (ICD-10 - K21.9) 02/23/2022 Osteoporosis, unspecified osteoporosis type, unspecified pathological fracture presence (ICD-10 - M81.0) 05/04/2022 Community acquired pneumonia, unspecified laterality (ICD-10 - J18.9) 12/19/2022 At risk for falling (ICD-10 - Z91.81) 12/19/2022 Former smoker (ICD-10 - Z87.891) 12/19/2022 Encounter for screening for lung cancer (ICD-10 - Z12.2) 02/23/2022 Prediabetes (ICD-10 - R73.03) 02/23/2022 Benign paroxysmal positional vertigo, unspecified laterality (ICD-10 - H81.10) 12/19/2022 Prediabetes (ICD-10 - R73.03) 12/19/2022 Abdominal aortic aneurysm (AAA) without rupture, unspecified part (ICD-10 - I71.40) 12/19/2022 Rheumatoid arthritis involving right knee, unspecified whether rheumatoid factor present (ICD-10 - M06.9) 12/19/2022 Overflow incontinence of urine (ICD-10 - N39.490) 01/26/[address] Contreras by Lanie Caballero medical office technology instructor, on 01/26/2023. I, Dr. Contreras, have personally reviewed and agreed with the information entered by the medical office technology instructor. 02/23/[address] Contreras by Lanie Caballero medical office technology instructor, on 02/23/2021. I, Dr. Contreras, have personally reviewed and agreed with the information entered by the medical office technology instructor. 04/27/[address] Contreras by Lanie Caballero medical office technology instructor, on 04/27/2022. IDr. Contreras, have personally reviewed and agreed with the information entered by the medical office technology instructor. 05/04/[address] Contreras by Lanie Caballero medical office technology instructor, 05/04/2022. Dr. Diane Cruz, have personally reviewed and agreed with the information entered by the medical office technology instructor. 05/11/[address] Contreras by Lanie Caballero medical office technology instructor, on 05/11/2022. Dr. Diane Cruz, have personally reviewed and agreed with the information entered by the medical office technology instructor. 07/06/[address] Contreras by Lanie Caballero medical office technology instructor, on 07/06/2022. I, Dr. Contreras, have personally reviewed and agreed with the information entered by the medical office technology instructor. 07/25/[address] Contreras by Lanie Caballero medical office technology instructor, on 07/25/2022. I, Dr. Contreras, have personally reviewed and agreed with the information entered by the medical office technology instructor. Right arm venipuncture done with 23 g needle. Successful first attempt. Pt tolerated it well. BandLomaki applied Lab sent to [facility]. Barbi VELARDE 08/17/[address] Contreras by Lanie Caballero medical office technology instructor, on 08/17/2022. I, Dr. Contreras, have personally reviewed and agreed with the information entered by the medical office technology instructor. 10/20/[address] Contreras by Lanie Caballero medical office technology instructor, on 10/20/2022. I, Dr. Contreras, have personally reviewed and agreed with the information entered by the medical office technology instructor. 12/19/[address] Contreras by Lanie Caballero medical office technology instructor, on 12/19/2022. I, Dr. Contreras, have personally reviewed and agreed with the information entered by the medical office technology instructor. 01/04/[address] Contreras by Loly Jennings medical office technology instructor, on 01/04/2023. I, Dr. Contreras, have personally reviewed and agreed with the information entered by the medical office technology instructor. 01/19/[address] Contreras by Lanie Caballero medical office technology instructor, on 01/19/2023. I, Dr. Contreras, have personally reviewed and agreed with the information entered by medical office technology instructor. PLAN OF TREATMENT Next Appt Details Provider Name:Nara Contreras, 0 02/23/2023 11:30:00 AM, [address] [place] [address], [phone], Insurance Providers Payer Name Payer Address Payer Phone Subscriber Number Group Number Insured Name Patient Relationship to Insured Coverage Start Date Coverage End Date [employer] Advantage [address] [place] [id number] Bryanna Olson Self - patient is the insured 3 MEDICAL (GENERAL) HISTORY Medical History History ICD [...] 77% Surgical History [facility]) [facility] diverticular abscess with percutaneous d rain 06/2020 partial sigmoidectomy with 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
--- NOTE | 2023-01-31 11:50 | ED.GENADUL_ITS ---
Discharge Plan Disposition Patient Disposition: Transfer-Acute Inpatient Care Specific Acute Inpt Facility: [facility] Condition: Serious Discharge Details Chief Complaint: Abd Prob Clinical Impression: Abdominal pain, acute, Abdominal aorta thrombosis, Leukocytosis, Elevated troponin Primary Care Provider: Nara Contreras ED Provider: Madeline Cates Home Meds and New Rx's Prescriptions: No Action losartan 25 mg tablet 12.5 mg PO DAILY methylprednisolone 2 mg tablet 4 mg PO DAILY vitamin B complex Tablet 1 tab PO DIRECTED acetaminophen 500 mg capsule 500 mg PO Q6H PRN clobetasol 0.05 % cream 1 applic topical BID PRN docusate sodium [Colace] 100 mg capsule 100 mg PO DAILY PRN omeprazole 20 mg capsule,delayed release(DR/EC) 20 mg PO DAILY Patient Comments: TAKE ONE CAPSULE BY MOUTH EVERY DAY 30 MINUTES BEFORE MORNING MEAL rosuvastatin 5 mg tablet 5 mg PO QPM Patient Comments: TAKE ONE TABLET BY MOUTH EVERY DAY cholecalciferol (vitamin D3) [Vitamin D3] 50 mcg (2,000 unit) Tablet 50 mcg PO DAILY methylprednisolone 4 mg tablet 8 mg PO DAILY Patient Comments: TAKE 4 TABLETS DAILY AFTER BREAKFAST FOR 5 DAYS; THEN 3 TABLETS DAILY FOR 5 DAYS; THEN 1 TABLET DAILY FOR 5 DAYS Discharge Data Discharge Date/Time-TO BE ENTERED AT DEPARTURE: 01/31/23 15:34 Medical Decision Making Patient is a pleasant 77-year-old female, companied by her , with chief complaint of abdominal pain that started at 1 AM. She reports the pain woke her up. States that she had a small bowel movement yesterday, none today and is not able to pass flatus. No change in urinary habits. Denies any fevers or chills. Past surgical history significant for partial colectomy and appendectomy. Colectomy was for diverticulitis. Denies any change in urinary habits. No vaginal discharge. She states that she has been having some pain in her back associated with recent bout of pneumonia but denies any acute onset of new back pain. Pain does not radiate into her legs. She has been feeling short of breath that she associates with her recent pneumonia as well as her increased pain. Had nausea and vomiting this morning. Denies feeling lightheaded. Past medical history is significant for AAA, GERD, hiatal hernia, diverticular disease, hyperlipidemia. She denies any chest pain. On exam, patient appears uncomfortable. She is tachycardic, initially with a heart rate of 127. At time of exam, her heart rate is in the high 90s. She is maintaining her blood pressure, Slightly hypertensive with a blood pressure of 161/92. She is clutching her abdomen and tachypneic. Her lungs are clear. Aside from the tachycardia, normal cardiac exam. Abdominal exam feels to be diffusely tender with guarding noted. She is experiencing some bloating. Diminished bowel sounds. Pain is worse along the lower region of the abdomen. 2+ distal pulses in the upper extremity. More difficult to palpate in bilateral lower extremities, will doppler. She does have mild bilateral lower extremity edema which she reports is baseline. No calf tenderness. Her history is most consistent with a small bowel obstruction. However, she is having some degree of midline discomfort, particular in the lower abdomen and with her history of AAA, I do wnat to Rule this out emergently. Will move forward with a CTA prior to having the blood work completed. I did review her previous kidney function and her GFR has been able to except dye historically. Will give Dilaudid, zofran. Doppler completes once she returned, pain and nausea are improving with Dilaudid and Zofran. Unable to obtain pulses on dopler of lower extremities. Consulted with radiologist: Thrombus with stenosis in aorta just prior ot bifurcation. No dissection, collatoral vessels feeding distally. No transition point but ileus at area of anastomosis. Collatoral vessels make acute vascular i ssue less likely. Consulted with Dr. Hanson who reviewed the imaging. She advised she may have small ileus, large amount of stool burden in the large intestines. Anastomosis patent. Unclear what is causing pain at this time. Given her vascular changes, will have vascular surgery with [facility] review the imaging and discuss case. Contacted again by radiologist, new compression fracture of T5. Patient reports that this pain is associated with coughing fits but not new today. Consulted with Dr. Jason, with vascular surgery at [facility] who agrees to take the patient in transfer, unclear etiology of abdominal pain but AAA enlarging. No dissection. Elevated lactate, elevated troponin. Troponin thought to be associated with demand as she has not had ACS sytmpoms. CT reviewed by radiolgoist: CHEST: Tracheobronchial tree: Patent where visualized. Pulmonary parenchyma: Centrilobular emphysematous changes are present in the lungs. There are dependent changes seen in the lung bases which may represent atelectasis or scarring. There is fibrosis in the lungs. Pulmonary Arteries: No evidence of filling defect to suggest pulmonary emboli. Mediastinum and Louise: No dominant adenopathy or fluid collection. The esophagus is unremarkable. Visualized thyroid: Unremarkable. Pleura: No effusion or pneumothorax. Heart: The heart is not dilated. No coronary artery calcifications are seen. No pericardial effusion. Aorta: Thoracic aorta non-dilated. Atherosclerosis. No evidence of dissection. Soft Tissues: Unremarkable. Bones: Within normal limits for the patient's age. ABDOMEN AND PELVIS: Abdomen: Celiac axis/mesenteric arteries: No evidence of occlusion or significant stenosis. There is atherosclerosis at the origin of the SMA. Renal Arteries: No evidence of occlusion or significant stenosis. Aorta: There is significant atherosclerosis. There is a 3 cm infrarenal abdominal aortic aneurysm. There is significant stenosis seen in the distal abdominal aorta just proximal to the bifurcation. Prominent retroperitoneal vessels are seen which appear to provide collateral circulation to the iliac arteries. There is no evidence of dissection. Pelvis: Iliac Arteries: No evidence of occlusion or significant stenosis. Atherosclerosis is present. Common Femoral Arteries: No evidence of occlusion or significant stenosis. Atherosclerosis is present. ABDOMEN: Liver: There is fatty infiltration of the liver. There are stable cysts in the liver. No measurable mass. Gallbladder and Biliary Tract: No radiodense calculus or dilation. Pancreas: Normal density, no abnormal calcifications or inflammatory process. Spleen: Normal. Adrenals: No masses seen. Kidneys: Normal size, contour and axis. No radiodense stones or obstructive uropathy. No masses seen. Bowel: There is diverticulosis seen in the colon but no evidence of acute diverticulitis. There is a moderate amount of retained stool throughout the colon. There is no evidence of pneumatosis. There are mildly dilated loops of small bowel in the right colon. No definite transition is seen. There is mild bowel wall thickening of a loop of small bowel in the right abdomen (series 5, image 780). No evidence of appendicitis. Peritoneal Cavity: There is a trace amount of free fluid in the right pericolic gutter. No free air. Lymph Nodes: Within normal limits. Bones: Within normal limits for the patient's age. There is a new mild compression deformity of T5. This was not present on the CT scan of the chest from 12/30/2022. Soft Tissues: Unremarkable. PELVIS: Bladder: Symmetric distention, no gross wall thickening. Reproductive Organs: Unremarkable as visualized. Lymph Nodes: Within normal limits. Bones: Within normal limits for the patient's age. IMPRESSION: 1. New mild compression deformity of T5. This was not present on the CT scan from 12/30/2022. 2. Marked stenosis of the distal abdominal aorta which has progressed significantly since the prior examination. No evidence of dissection. 3. Mildly dilated loops of small bowel in the right abdomen which may represent ileus early small bowel obstruction cannot be excluded. Mild wall thickening of a loop of small bowel in the right abdomen. Enteritis cannot be excluded. Please correlate clinically. 4. No evidence of a pulmonary embolism. 5. Findings in the chest, abdomen and pelvis as described above. 6. Findings were discussed with Madeline Cates on 01/31/2023. Considered anticoagulation. However, as we are not clear on the course, particularly with thrombus which typically is seen more with dissection, will hold off. She continues to be slightly tachycardic with HR in 90s. Will give dose of Labatolol. Discussed concerns with patient and . Discussed risks/benefits of transf er, they are in agreement with this plan. Woud like to be full code. Just prior to transport, she requested more pain medication, will hold off on Labetalol. At patient request, spoke witth her daughters about transfer and fidings thus far. HPI General Date/Time Provider Initiated Documentation: 01/31/23 11:19 . Limitations to Documentation: no limitations . Information obtained by: patient, family (), RN notes reviewed and old records reviewed . History of Present Illness 77 year old F presents to the emergency department with the chief complaint of abdominal pain, described as severe, Quality is described as stabbing, and is localized to the abdomen. Patient reports no radiation. Patient started experiencing this hour(s) (0100) and it has been constant. No relieving factors improve symptom(s), No exacerbating factors reported . Patient notes loss of appetite, malaise and nausea/vomiting; denies chest pain, cough, fever/chills, headaches, rash, shortness of breath and syncope. Patient did receive the following treatments prior to arrival, none Related Data Home Medications Medication Instructions Recorded Confirmed cholecalciferol (vitamin D3) 50 50 mcg PO DAILY 06/23/20 01/31/23 mcg (2,000 unit) tablet (Vitamin D3) omeprazole 20 mg capsule,delayed 20 mg PO DAILY 06/23/20 01/31/23 release rosuvastatin 5 mg tablet 5 mg PO QPM 06/23/20 01/31/23 methylprednisolone 4 mg tablet 8 mg PO DAILY 06/22/22 01/31/23 acetaminophen 500 mg capsule 500 mg PO Q6H PRN 08/22/22 01/31/23 clobetasol 0.05 % topical cream 1 applic topical BID PRN 08/22/22 01/31/23 docusate sodium 100 mg capsule 100 mg PO DAILY PRN 08/22/22 01/31/23 (Colace) losartan 25 mg tablet 12.5 mg PO DAILY 08/22/22 01/31/23 methylprednisolone 2 mg tablet 4 mg PO DAILY 08/22/22 01/31/23 vitamin B complex 1 tab PO DIRECTED 08/22/22 01/31/23 Allergies Allergy/AdvReac Type Severity Reaction Status Date / Time lidocaine Allergy Severe Flushing Unverified 01/31/23 10:40 of face doxycycline Allergy Verified 01/31/23 10:40 duloxetine [From Cymbalta] Allergy Verified 01/31/23 10:40 Latex, Natural Rubber Allergy Unverified 01/31/23 10:40 leflunomide [From Arava] Allergy Verified 01/31/23 10:40 lisinopril Allergy Verified 01/31/23 10:40 mirtazapine Allergy Verified 01/31/23 10:40 simvastatin Allergy Verified 01/31/23 10:40 codeine AdvReac Intermediate Nausea Unverified 01/31/23 10:40 ciprofloxacin AdvReac Mild GI Upset Unverified 01/31/23 10:40 General Stated Complaint: Abd Prob PATRICE: 3 Review of Systems Constitutional Constitutional: Reports as per HPI, Denies chills, Denies fever(s), Denies headache(s) and Denies weakness ENT Ears, Nose, Mouth, and Throat: Denies headache(s) and Denies disequilibrium Cardiovascular Cardiovascular: Reports as per HPI, Denies chest pain and Denies dyspnea Respiratory Respiratory: Reports as per HPI, Denies cough and Denies dyspnea Gastrointestinal Gastrointestinal: Reports as per HPI Musculoskeletal Musculoskeletal: Reports as per HPI and Denies back pain Integumentary/Breasts Skin/Breast: Reports as per HPI and Denies rash Neurologic Neurologic: Reports as per HPI, Denies headache(s), Denies localized weakness, Denies radicular pain, Denies sensory deficit, Denies disequilibrium and Denies weakness PFSH All Active Problems Elevated troponin (Acute) Leukocytosis (Acute) Abdominal aorta thrombosis (Acute) Abdominal pain, acute (Acute) Pneumonia (Acute) Cough (Acute) Bilateral sensorineural hearing loss (Acute) 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 episodic diverticulitis - last episode three weeks ago H/O surgical procedure (Chronic) a. arthroscopic left knee surgery b. tubal ligation c. appendectomy as a child Medical History AAA (abdominal aortic aneurysm) Psoriatic arthritis Pre-diabetes Fatty liver Heart murmur Lichen sclerosus Former smoker Osteoarthritis of both hips Osteoarthritis of both knees GERD (gastroesophageal reflux disease) Hiatal hernia with GERD Diverticulitis of intestine with abscess Psoriasis Hyperlipidemia Surgical History History of open sigmoidectomy Ligation of fallopian tube Arthroplasty of knee (~05/2009) right knee torn medial and lateral meniscus; Meniscectomy and chonfroplasty of medial femoral condyle. Appendectomy Family History Mother Diabetes Heart disease Father , PNEUMONIA at age 92. Heart disease Hyperlipidemia Sister Alcohol abuse Sister Heart disease Grandfather Heart disease Grandfather No problems noted. Grandmother Asthma Grandmother No problems noted. Sister Neoplasm LEUKEMIA Son No problems noted. Daughter No problems noted. Daughter No problems noted. Daughter No problems noted. Sister , CHILDBIRTH at age 21. No problems noted. Social History Smoking/Tobacco Use Status: Former Tobacco Use Smoking risk assessment performed?: Yes Alcohol Intake: never Drug use: Never Substance use type: does not use Housing: house Do you feel safe at home: Yes Do you feel safe in your relationship?: Yes Exam Const General: cooperative, uncomfortable, well developed, anxious and ill appearing acutely Nutritional Appearance: well nourished and overweight Orientation: alert and awake HENMT Head: normal to inspection Mouth: moist mucous membranes Resp Effort & Inspection: normal respiratory effort, able to speak in complete sentences and no respiratory distress Auscultation: clear to auscultation bilaterally, no rales, no rhonchi and no wheezes Cardio Rate: regular rate Rhythm: regular rhythm Heart Sounds: S1 normal and S2 normal GI Inspection: normal to inspection, no edema, distended, no visible herniation and no visible pulsation Palpation: no hepatosplenomegaly, firm, guarding, no hernias, no pulsatile masses, not rigid and tender in the RLQ and with rebound tenderness Percussion: dullness to percussion Auscultation: hypoactive bowel sounds Skin General skin exam: no rashes or lesions noted Trauma: no lacerations or abrasions Neuro General: patient alert and patient awake Cognition: normal cognition Speech: speech normal Extrem General: full ROM, capillary refill normal, no calf tenderness, edema Laterality: bilateral and other (unable to palpate pulses in BLE) Course Vital Signs Vital signs: Vital Signs Temperature 36.4 C 01/31/23 10:36 Pulse 127 H 01/31/23 10:36 Respiratory Rate 24 01/31/23 10:36 Blood Pressure 161/92 H 01/31/23 10:36 Pulse Oximetry 97 01/31/23 10:36 Temperature 36.4 C 01/31/23 10:36 Temperature Source Oral 12/12/23 10:36 Pulse 127 H 01/31/23 10:36 Respiratory Rate 24 01/31/23 10:36 Respiratory Effort Normal 01/31/23 10:43 Blood Pressure 161/92 H 01/31/23 10:36 Pulse Oximetry 97 01/31/23 10:36 Oxygen Delivery Method Room Air 01/31/23 10:36 Oxygen Flow Rate 0 01/31/23 10:36 Pain Level 10 01/31/23 10:36
[2023-01-31 12:24] LABS: Abs Immature Grans 0.09 10^3/uL (0.0-0.06); Absolute Basophil Count 0.07 10^3/uL (0.0-0.2); Absolute Monocyte Count 1.16 10^3/uL (0.1-0.8); Basophils % 0.4; HCT 39.9 % (36.0-46.0); HGB 11.8 g/dL (11.2-15.7); Immature Grans % 0.5; Lymphocytes % 19.3; MCH 23.4 pg (27.0-33.0); MCHC 29.6 % (32.0-36.0); MCV 79 fL (80-95); MPV 9.4 fL (8.0-11.0); Neutrophils % 70.8; Platelet Count 604 10^3/uL (130-400); RBC 5.04 10^6/uL (3.93-5.22); RDW 17.1 % (11.7-14.6); RDW-SD 48.9 fL; WBC 16.59 10^3/uL (4.4-10.8)
[2023-01-31] MEDS: Normal Saline - Diluent 50 ML VIAL IJ (12:27)
[2023-01-31] MEDS: Omnipaque 350 MG/ML 100 ML BTL IJ (12:30)
--- NOTE | 2023-01-31 12:31 | DI.CT_ITS ---
Exam(s) CT THORAX ABD/PEL CTA EXAM: CT THORAX ABD/PEL CTA CLINICAL HISTORY: abdominal pain, hx of AAA. TECHNIQUE: Imaging Protocol: Axial CT angiography was performed with multi-slice acquisition and m ulti-planar and/or 3D reconstructions. CONTRAST MATERIAL: Intravenous: Omnipaque 350 contrast volume:100 mL Oral: No COMPARISON: CT CHEST FOR PULMONARY EMBOLUS from 09/15/[address] ABDOMEN PELVIS W from 08/18/[address] CHEST LUNG CANCER SCREEN from 12/30/2022 CR,XR XR CHEST 2V PA LATERAL from 01/15/2023 FINDINGS: CHEST: Tracheobronchial tree: Patent where visualized. Pulmonary parenchyma: Centrilobular emphysematous changes are present in the lungs. There are depend ent changes seen in the lung bases which may represent atelectasis or scarring. There is fibrosis in the lungs. Pulmonary Arteries: No evidence of filling defect to suggest pulmonary emboli. Mediastinum and Louise: No dominant adenopathy or fluid collection. The esophagus is unremarkable. Visualized thyroid: Unremarkable. Pleura: No effusion or pneumothorax. Heart: The heart is not dilated. No coronary artery calcifications are seen. No pericardial effusion. Aorta: Thoracic aorta non-dilated. Atherosclerosis. No evidence of dissection. Soft Tissues: Unremarkable. Bones: Within normal limits for the patient's age. ABDOMEN AND PELVIS: Abdomen: Celiac axis/mesenteric arteries: No evidence of occlusion or significant stenosis. There is atherosc lerosis at the origin of the SMA. Renal Arteries: No evidence of occlusion or significant stenosis. Aorta: There is significant atherosclerosis. There is a 3 cm infrarenal abdominal aortic aneurysm. There is significant stenosis seen in the distal abdominal aorta just proximal to the bifurcation. Prominent retroperitoneal vessels are seen which appear to provide collateral circulation to the arian c arteries. There is no evidence of dissection. Pelvis: Iliac Arteries: No evidence of occlusion or significant stenosis. Atherosclerosis is present. Common Femoral Arteries: No evidence of occlusion or significant stenosis. Atherosclerosis is prese nt. ABDOMEN: Liver: There is fatty infiltration of the liver. There are stable cysts in the liver. No measurable mass. Gallbladder and Biliary Tract: No radiodense calculus or dilation. Pancreas: Normal density, no abnormal calcifications or inflammatory process. Spleen: Normal. Adrenals: No masses seen. Kidneys: Normal size, contour and axis. No radiodense stones or obstructive uropathy. No masses seen. Bowel: There is diverticulosis seen in the colon but no evidence of acute diverticulitis. There is a moderate amount of retained stool throughout the colon. There is no evidence of pneumatosis. There are mildly dilated loops of small bowel in the right colon. No definite transition is seen. There is mild bowel wall thickening of a loop of small bowel in the right abdomen (series 5, image 780). N o evidence of appendicitis. Peritoneal Cavity: There is a trace amount of free fluid in the right pericolic gutter. No free air. Lymph Nodes: Within normal limits. Bones: Within normal limits for the patient's age. There is a new mild compression deformity of T5. This was not present on the CT scan of the chest from 12/30/2022. Soft Tissues: Unremarkable. PELVIS: Bladder: Symmetric distention, no gross wall thickening. Reproductive Organs: Unremarkable as visualized. Lymph Nodes: Within normal limits. Bones: Within normal limits for the patient's age. IMPRESSION: 1. New mild compression deformity of T5. This was not present on the CT scan from 12/30/2022. 2. Marked stenosis of the distal abdominal aorta which has progressed significantly since the prior e xamination. No evidence of dissection. 3. Mildly dilated loops of small bowel in the right abdomen which may represent ileus early small bow el obstruction cannot be excluded. Mild wall thickening of a loop of small bowel in the right abdome n. Enteritis cannot be excluded. Please correlate clinically. 4. No evidence of a pulmonary embolism. 5. Findings in the chest, abdomen and pelvis as described above. 6. Findings were discussed with Madeline aCtes on 01/31/2023. RADIATION DOSE DELIVERED: Total DLP DATA REPOSITORY: All CT scans at this facility are submitted to the National Radiology Data Registry (NRDR) Dose Index Registry (DIR) with the [employer] ([employer]). RADIATION OPTIMIZATION: All CT scans at this facility use at least one of these dose optimization te chniques: automated exposure control; mA and/or kV adjustment per patient size (includes targeted exa ms where dose is matched to clinical indication); or iterative reconstruction.
[2023-01-31 12:34] LABS: Absolute Eosinophil Count 0.33 10^3/uL (0.0-0.7); Absolute Neutrophil Count 11.75 10^3/uL (1.2-6.7)
[2023-01-31] MEDS: Ondansetron 4 MG/2 ML VIAL IVP (12:34)
[2023-01-31] MEDS: Normal Saline 1,000 ML 500 ML IV (12:34)
[2023-01-31] MEDS: HYDROmorphone 2 MG/ML SYR 0.5 MG IVP (12:34)
[2023-01-31 12:48] LABS: ALT 27 U/L (14-59); AST 16 U/L (15-37); Albumin 3.5 g/dL (3.4-5.0); Alkaline Phosphatase 72 U/L (46-116); Anion Gap 13.5 mmol/L (3-11); BUN 22 mg/dL (7-18); Bilirubin, Total 0.4 mg/dL (0.2-1.0); CO2 26.5 mmol/L (21.0-32.0); CREATININE 1.2 mg/dL (0.55-1.02); Calcium 10.7 mg/dL (8.5-10.1); Chloride 100 mmol/L (98-107); Estimated GFR 46.62 (mL/min/1.73m2); Glucose 120 mg/dL (74-106); Lipase 31 U/L (16-77); Potassium 3.5 mmol/L (3.5-5.1); Sodium 140 mmol/L (136-145); Total Protein 7.8 g/dL (6.4-8.2)
[2023-01-31 12:52] LABS: Lactate 2.2 mmol/L (0.6-1.4)
[2023-01-31 12:52] LABS: Troponin I 122 ng/L (<or=60)
[2023-01-31 13:02] LABS: PTT Activated 20.6 sec (23.6-32.8); Prothrombin Time 10.5 sec (9.1-11.1)
--- NOTE | 2023-01-31 13:15 | RT.EKG_ITS ---
APPROVED REPORT Exam: Resting ECG Reason for Exam: elevated troponin with abdominal pain Patient Location: E HR:86 bpm ECG Measurements Heart Rate 86 AXIS ME 163 P 53 QRSd 114 QRS 2 QT 380 T 52 QTc 454 Conclusion Sinus rhythm...normal P axis, V-rate 60- 99 Incomplete right bundle branch block...QRSd >112, terminal axis(90,270) Probable left ventricular hypertrophy...multiple LVH criteria ST elevation secondary to LVH...Multiple VCG criteria sinus rhythm, incomplete right bundle branch block, LVH. WD
[2023-01-31] MEDS: HYDROmorphone 2 MG/ML SYR (15:37)
== END 2023-01-31 15:34 | disposition short-term general hospital (02) ==
PROVIDERS: Emergency Provider Physician Assistant; PCP Family Medicine
DX: I74.09 Other arterial embolism and thrombosis of abdominal aorta (principal); D72.829 Elevated white blood cell count, unspecified; R10.9 Unspecified abdominal pain; R11.2 Nausea with vomiting, unspecified; I45.10 Unspecified right bundle-branch block; R79.89 Other specified abnormal findings of blood chemistry; Z79.899 Other long term (current) drug therapy; E78.5 Hyperlipidemia, unspecified
CPT/HCPCS: 71275; 80053; 83690; 86850; 86900; 86901; 93005; 96374; 96375; 99285; 74174; 83605; 83735; 84484; 85025; 85610; 85730; 93010; J1170; J2405; J3490

== ENCOUNTER → 2023-06-09 01:26 | Outpatient (CLI) | payer MEDICARE, SELFPAY ==
--- NOTE | 2023-06-09 | DI.US_ITS ---
Exam(s) US AAA DIAGNOSTIC EXAM: US AAA DIAGNOSTIC CLINICAL HISTORY: KNOWN ABDOMINAL AORTIC ANEURYSM, I71.40 W/O RUPTURE COMPARISON: No exams were available for comparison FINDINGS: Abdominal Aorta: Proximal: 2.2 x 2.4 cm Mid: 2.2 x 2.2 cm Distal: 2.9 x 3.0 cm Iliac's: Right: 0.9 x 0.9 cm Left: 0.9 x 0.8 cm Echogenic foci are single along the wall of the aorta likely reflecting atherosclerotic calcification . IMPRESSION: 3.0 cm distal abdominal aortic aneurysm. DATA REPOSITORY:
== END ==
PROVIDERS: PCP Family Medicine; Visit Provider Family Medicine
DX: I71.40 Abdominal aortic aneurysm, without rupture, unspecified (principal)
CPT/HCPCS: 76775

== ENCOUNTER → 2023-11-07 12:41 | Outpatient (BNVA) | payer MEDICARE, SELFPAY | PROVIDERS: PCP Family Medicine; Referring Provider Family Medicine; Visit Provider Internal Medicine | DX: J84.10 Pulmonary fibrosis, unspecified (principal); J47.9 Bronchiectasis, uncomplicated; L40.50 Arthropathic psoriasis, unspecified; G47.33 Obstructive sleep apnea (adult) (pediatric); Z87.891 Personal history of nicotine dependence | CPT/HCPCS: 99215 ==

== ENCOUNTER 2023-11-10 01:58 | Outpatient (CLI) | payer MEDICARE, SELFPAY ==
[2023-11-10] MEDS: Levalbuterol HFA 15 GM INH 4 PUFF IH (16:43)
[2023-11-10] MEDS: Inhaler, Assist Device 1 EACH MC (16:43)
--- NOTE | 2023-11-13 14:53 | PFT_ITS ---
Date of service: 11/10/23 Time of Service: 15:23 Pulmonary Function Test Result Requesting Provider Ari Johnson MD Indications: Cough Interpretation Spirometry: Spirometry pre and postbronchodilator showed: 1. No evidence of airway obstruction. 2. No significant response to bronchodilator. 3. Satellite Specialist comments indicate good patient effort 4. This test met [employer] standards for spirometry. 5. If further evaluation of possible airway (asthma) reactivity is clinically indicated, methacholine challenge testing is recommended. Lung Volumes: Lung volume studies by plethysmography showed: 1. Mild restriction, suggested by a total lung capacity 79% predicted, slow vital capacity 79% predicted, thoracic gas volume of 68% predicted. 2. There was no evidence of hyperinflation. 3. Severely reduced ERV may have been partially due to obesity Diffusion Capacity: Diffusing capacity by single breath carbon monoxide technique showed: 1. Mild gas exchange abnormality with DLCO 66% predicted. When corrected for lung volumes, DL/VA was 94% predicted. Impression Mild restriction with a mild gas exchange abnormality. No evidence of COPD, asthma, or hyperinflation. If further evaluation of possible restriction is clinically indicated, maximum inspiratory and expiratory pressures to look for musculoskeletal weakness is recommended, along with radiographic correlation for possible interstitial lung disease. Recommend review of patient's medication profile to rule out potential pulmonary toxic medications. Follow-up PFT in 6 months is recommended to monitor trends.
--- NOTE | 2023-11-14 13:21 | RT.PO.N_ITS ---
Date of service: 11/10/23 Time of Service: 21:37 Nocturnal Oximetry Note: Report: Overnight Oximetry on Room Air without BiPAP. Indication: Pulmonary fibrosis, screen for obstructive sleep apnea Ordering provider: Ari Lopez MD Conditions of test: Test done by [facility] with home oximetry.? Desaturation events were defined as drop in SpO2 by 4% for a minimum duration of 10 seconds. Results: Minimum oxygen saturation (SpO2) was 65% at 0148 hrs. hrs. Time spent with SpO2 less than 88% was 352 minutes. Review of oximetry histogram showed clusters of severe prolonged oxygen desaturation, likely related to REM related sleep apnea/hypopnea. The maximum single time with SpO2 less than 88% was 1436 seconds at 2341 hrs. Average pulse was 69 bpm, high pulse was 101 bpm. The technical quality of this test was adequate for clinical decision making. Impression: 1.? There was clinically significant oxygen desaturation, with the morphology highly suggestive of severe REM related obstructive sleep apnea. 2.? This test does meet Medicare criteria for supplemental oxygen. However, CPAP or BiPAP treatment of sleep apnea is superior treatment and standard of care for sleep apnea management. Therefore, further testing on an urgent basis is recommended for sleep apnea. Recommendations: 1.? Additional evaluation with polysomnography and CPAP titration are recommended to diagnose and determine optimal treatment for likely sleep apnea. 2.? While awaiting polysomnography, consider temporarily using supplemental oxygen at 2 to 3 L/min to relieve nocturnal oxygen desaturation pending polysomnography results.? CPAP is superior treatment for sleep apnea, if present. Ari Lopez MD [facility] Pulmonary & Critical Care Medicine
== END 2023-11-13 23:59 | disposition home or self-care (01) ==
LOC: RT 01:59
PROVIDERS: PCP Family Medicine; Visit Provider Internal Medicine
DX: R05.9 Cough, unspecified (principal); Z87.891 Personal history of nicotine dependence
CPT/HCPCS: 00123; 94060; 94726; 94729; 94762

== ENCOUNTER → 2023-12-05 13:35 | Outpatient (BNVA) | payer MEDICARE, SELFPAY | PROVIDERS: PCP Family Medicine; Referring Provider Family Medicine; Visit Provider Physician Assistant Surgical | DX: J84.10 Pulmonary fibrosis, unspecified (principal); I27.20 Pulmonary hypertension, unspecified; G47.33 Obstructive sleep apnea (adult) (pediatric); L40.50 Arthropathic psoriasis, unspecified; Z87.891 Personal history of nicotine dependence; Z23 Encounter for immunization | CPT/HCPCS: 90661; 99215; G0008 ==

== ENCOUNTER 2023-12-11 11:24 | Outpatient (CLI) | payer MEDICARE, SELFPAY ==
[2023-12-11 14:58] LABS: ESR 32 mm/hr (0-30)
[2023-12-12 17:26] LABS: Myeloperoxidase Ab IgG <0.2 U (>=0.4); Proteinase 3 Ab (PR3) <0.2 U
[2023-12-13 13:52] LABS: IgE 19 IU/mL (<158)
[2023-12-15 14:43] LABS: Elm IgE <0.10 kU/L (<0.70); June Grass IgE <0.10 kU/L (<0.70); Lamb's Quarter IgE <0.10 kU/L (<0.70); Oak IgE <0.10 kU/L (<0.70); Short Ragweed IgE <0.10 kU/L (<0.70); Silver Birch IgE <0.10 kU/L (<0.70); Timothy Grass IgE <0.10 kU/L (<0.70)
== END 2023-12-11 11:25 | disposition home or self-care (01) ==
LOC: LBO 11:26
PROVIDERS: PCP Family Medicine; Visit Provider Internal Medicine
DX: L40.50 Arthropathic psoriasis, unspecified (principal); Z87.891 Personal history of nicotine dependence; R05.8 Other specified cough; J47.9 Bronchiectasis, uncomplicated
CPT/HCPCS: 36415; 85652; 86003; 82785; 83516

== ENCOUNTER 2023-12-14 01:40 | Outpatient (CLI) | payer MEDICARE, SELFPAY ==
--- NOTE | 2023-12-14 07:30 | DI.US_ITS ---
APPROVED REPORT EXAM: Comprehensive 2D, Doppler, and color-flow Echocardiogram Patient Location: Out-Patient Podiatric Surgeon: Renee Brunson RDCS (AE) Indications: Assess for pulmonary hypertension, Cough Other Information Study Quality: Adequate Conclusion Mild concentric left ventricular hypertrophy. Ejection fraction biplane is 59%. Visually it appears 60 to 65%. Wall motion is normal Normal right ventricular size and function Both atria are normal in size Mitral annular calcification, trace mitral regurgitation Right ventricular systolic pressure could not be estimated Wall motion Left Ventricle The left ventricle is normal size. The left ventricular systolic function is normal. The left ventric ular ejection fraction is within the normal range. Mild concentric left ventricular hypertrophy. Ther e is normal LV segmental wall motion. There is no ventricular septal defect visualized. LVEF is 59%. Right Ventricle The right ventricle is normal size. The right ventricular systolic function is normal. Atria The left atrium size is normal. The right atrium size is normal. The interatrial septum is intact wit h no evidence for an atrial septal defect. Aortic Valve The aortic valve is normal in structure. Aortic valve is trileaflet. There is no aortic valvular sten osis. No aortic regurgitation is present. Mitral Valve Mild mitral annular calcification. No evidence of mitral valve stenosis. Trace mitral regurgitation. Tricuspid Valve The tricuspid valve is normal in structure. There is no tricuspid valve stenosis. Trace tricuspid reg urgitation. Unable to assess PA pressure. Pulmonic Valve The pulmonary valve is normal in structure. There is no pulmonic valvular stenosis. There is no pulmo erasmo valvular regurgitation. Great Vessels The aortic root is normal in size. The ascending aorta is normal Aortic arch is normal in caliber. IV C is normal in size and collapses >50% with inspiration. Pericardium There is no pericardial effusion. 2D Dimensions IVSD d PLAX 1.15 cm F: 0.6-1.0 Ao Root d 2.60 cm F: 2.7 - 3.3 LVPW d PLAX 1.10 cm F: 0.6 - 1.0 Ao Asc Diam d 3.36 cm F: 2.3 - 3.1 LVID d PLAX 3.90 cm F: 3.8 - 5.2 LVDs 2.80 cm F: 2.2 - 3.5 LV EF Teichholz 56.3 % FS 28.92 % LV EDV (Teich) 64.9 mL LV ESV (Teich) 28.4 mL M-Mode TAPSE 2.02 cm (M/F) >1.7 Auto EF LV EDV A4C 82.9 mL LV EDV A2C 76.9 mL LV EDV BP 80.5 mL LV ESV A4C 34.6 mL LV ESV A2C 30.5 mL LV ESV BP 32.9 mL LVEF(%) A4C 58.3 % LVEF(%) A2C 60.3 % LVEF(%) BP 59.1 % LV SV A4C 48.4 ml LV SV A2C 46.3 ml LV SV BP 47.6 ml LV CO A4C 3.1 L/min LV CO A2C 3.1 L/min LV CO BP 3.1 L/min HR A4C 64.52 BPM HR A2C 67.17 BPM LV EDV Index (BP) LA Volume LA Length A4C 4.8 cm LA Length A2C 5.0 cm LA Area A4C s 13.23 cm2 LA Area A2C s 17.42 cm2 LA Vol A4C A-L 30.96 mL LA Vol A2C A-L 51.30 mL LA Vol Biplane A-L 40.8 mL LA Vol/BSA A4C A-L LA Vol/BSA A2C A-L LA Vol/BSA BP A-L 22.5 mL/m2 LA Vol A4C MOD 29.1 mL LA Vol A2C MOD 46.7 mL LA Vol BP MOD 37.7 mL RA Volume RA Area A4C 7.7 cm2 RA ESV A4C (A-L) 12.5mL RA Vol/BSA A4C A-L RA Length A4C 4.0 cm RA ESV A4C (MOD) 11.8mL LV Diastology MV E' medial 0.062 (>0.07 m/s) MV E Vmax 0.86 (0.4-1.3 m/s) MV E/E' MED 13.91 (<14) MV A Vmax 1.20 (0.4-1.3 m/s) MV E' lateral 0.046 (>0.1 m/s) E/A Ratio 0.7 MV E/E' LAT 18.47 (<14) MV E' Average 0.054 m/s MV E/E'(average) 15.87 Aortic Valve AoV Vmax 1.33 m/s LVOT Vmax 1.18 m/s AoV Peak Grad 7.1 mmHg LVOT Peak Grad 5.5 mmHg AoV Area (Vmax) 2.67 cm2 LVOT VTI 0.253 m AoV VTI 0.318 m LVOT Mean Grad 2.9 mmHg AoV Mean Luis E. 0.92 m/s LVOT SV 76.59 mL AoV Mean Grad 3.8 mmHg LVOT Diam s 1.95 cm AoV Area (VTI) 2.41 cm2 AV Regurg Peak Gr. 7.09 mmHg Velocity Ratio 0.89 Mitral Valve MV DT 271 (160-240 msec) MV Vmax TIPS 1.22 m/s MV Mean Grad 1.9 (<2mmHg) MV VTI 0.311 m Pulmonary Valve PV Vmax 1.01 (0.5-1.5 m/s) RVOT Vmax 0.89 m/s PV Peak Grad 4.1 mmHg RVOT Peak Gr. 3.2 mmHg PV Mean Luis E 0.71 m/s RVOT VTI 0.208 m PV Mean Grad 2.3 mmHg RVOT Mean Gr. 1.9 mmHg Tricuspid Valve RA Pressure 3.00 mmHg TV S' 0.17 m/s
--- NOTE | 2023-12-14 08:31 | DI.CT_ITS ---
Exam(s) CT CHEST HIGH RESOLUTION EXAM: CT CHEST HIGH RESOLUTION CLINICAL HISTORY: cough; followup, hx psoriatic arthritis,PULMONARY FIBROSIS,J84.10. TECHNIQUE: Multi planar reconstructions were performed. CONTRAST MATERIAL: None COMPARISON: CT CT CHEST LUNG CANCER SCREEN from 12/30/[address] THORAX ABD/PEL CTA from 01/31/2023 CT,NM Myocardial Perfusion from 04/05/2023 FINDINGS: CHEST: LUNGS: Bilateral interstitial fibrosis pattern again noted which appears similar to CT scan of 2022. No confluent infiltrates nor pleural effusions. With respect to the previously described lung nodules..... There is a mildly spiculated right upper lobe nodule measuring 5 mm, unchanged. There is a peripherally located 3 millimeter unchanged nodule in the right upper lobe also again note d. Previously described 7 by 4 mm nodule in the lateral basal segment of the right lower lobe also u nchanged. No significant left lung nodules. MEDIASTINUM: There is no obvious hilar nor mediastinal adenopathy. Visualized thyroid unremarkable. CARDIAC: Heart size is normal. There is no pericardial effusion.Caliber of the thoracic aorta is wit hin normal limits. VISUALIZED UPPER ABDOMEN:No adrenal masses. OSSEOUS: There is a 50-60% compression fracture of T5 noted at inferior endplate level, new since 11/2022. Has further progressed from CT scan 01/31/2023. IMPRESSION: 1. There is a 50-60 percent compression fracture of T5 vertebral body, as discussed above. 2. Relatively stable appearance of the bilateral interstitial fibrosis pattern in the lung james. 3. Stable appearance of previously described right lung nodules. No new lung nodules. No new infilt rates. No pleural effusions. No intrathoracic adenopathy. RADIATION DOSE DELIVERED: 330.84mGy.cm Total DLP DATA REPOSITORY: All CT scans at this facility are submitted to the National Radiology Data Registry (NRDR) Dose Index Registry (DIR) with the [employer] [place] [employer] (A[employer]). RADIATION OPTIMIZATION: All CT scans at this facility use at least one of these dose optimization te chniques: automated exposure control; mA and/or kV adjustment per patient size (includes targeted exa ms where dose is matched to clinical indication); or iterative reconstruction.
== END 2023-12-14 02:00 ==
LOC: DI 01:40
PROVIDERS: PCP Family Medicine; Visit Provider Physician Assistant Surgical
DX: I27.20 Pulmonary hypertension, unspecified (principal); J84.10 Pulmonary fibrosis, unspecified
CPT/HCPCS: 71250; 93306

== ENCOUNTER 2023-12-25 16:30 | Emergency (ER) | payer MEDICARE, SELFPAY ==
[2023-12-25 16:37] VITALS: BP 158/70; PULSE 101; RESP 18; O2SAT 96
--- NOTE | 2023-12-25 16:50 | W.ED.GENAD ---
Discharge Plan Disposition Patient Disposition: Home Condition: Stable Discharge Details Clinical Impression: Strain of right hip, Arthritis of right hip Primary Care Provider: Nara Contreras ED Provider: Donald Franklin Home Meds and New Rx's Prescriptions: New cyclobenzaprine 10 mg tablet 10 mg PO TID PRNQty: 20 0RF prednisone 20 mg tablet 60 mg PO DAILY 4 Days Qty: 12 0RF Continued oxybutynin chloride 10 mg tablet extended release 24hr 10 mg PO DAILY multivitamin Tablet 1 tab PO DAILY calcium See Rx Instructions .ROUTE DIRECTED Rx Instructions: as directed; omeprazole 20 mg capsule,delayed release(DR/EC) 40 mg PO DAILY Patient Comments: TAKE ONE CAPSULE BY MOUTH EVERY DAY 30 MINUTES BEFORE MORNING MEAL folic acid 1 mg tablet 1 mg PO DAILY vitamin B complex Tablet 1 tab PO DIRECTED acetaminophen 500 mg capsule 500 mg PO Q6H PRN clobetasol 0.05 % cream 1 applic topical BID PRN docusate sodium [Colace] 100 mg capsule 100 mg PO DAILY PRN aspirin 81 mg tablet,delayed release (DR/EC) 81 mg PO DAILY metoprolol tartrate 25 mg tablet 25 mg PO DAILY nitroglycerin 0.4 mg tablet, sublingual 0.4 mg sublingual Q5M PRN Rx Instructions: do not exceed 3 doses per episode benzonatate 100 mg capsule 100 mg PO TID methylprednisolone 4 mg tablet 4 mg PO DAILY rosuvastatin 20 mg tablet 20 mg PO DAILY Patient Comments: TAKE ONE TABLET BY MOUTH EVERY EVENING cholecalciferol (vitamin D3) [Vitamin D3] 50 mcg (2,000 unit) Tablet 50 mcg PO DAILY Discharge Instructions Additional Instructions: Your x-ray did not show any concerning findings at this time other than you have arthritis Follow-up with your primary care provider associated pain is continuing in a week If you feel more ill or have new symptoms such as high fevers return to the emergency department for reevaluation. HPI General Mode of arrival: wheelchair. Date/Time Provider Initiated Documentation: 12/25/23 16:36. Limitations to Documentation: no limitations. Information obtained by: patient. History of Present Illness 78 year old F presents to the emergency department with the chief complaint of right hip pain, described as moderate, Quality is described as aching, and is localized to the right (hip). Patient reports no radiation. Patient started experiencing this day(s) (1) and it has been constant. No relieving factors improve symptom(s), No exacerbating factors reported . Patient notes denies nausea/vomiting and shortness of breath. Patient did receive the following treatments prior to arrival, none Related Data Home Medications ?Medication ?Instructions ?Recorded ?Confirmed cholecalciferol (vitamin D3) 50 50 mcg PO DAILY 06/23/20 12/25/23 mcg (2,000 unit) tablet (Vitamin D3) acetaminophen 500 mg capsule 500 mg PO Q6H PRN 08/22/22 12/25/23 clobetasol 0.05 % topical cream 1 applic topical BID PRN 08/22/22 12/25/23 docusate sodium 100 mg capsule 100 mg PO DAILY PRN 08/22/22 12/25/23 (Colace) vitamin B complex 1 tab PO DIRECTED 08/22/22 12/25/23 aspirin 81 mg tablet,delayed 81 mg PO DAILY 10/24/23 12/25/23 release benzonatate 100 mg capsule 100 mg PO TID 10/24/23 12/25/23 methylprednisolone 4 mg tablet 4 mg PO DAILY 10/24/23 12/25/23 metoprolol tartrate 25 mg tablet 25 mg PO DAILY 10/24/23 12/25/23 nitroglycerin 0.4 mg sublingual 0.4 mg sublingual Q5M PRN 10/24/23 12/25/23 tablet calcium See Rx Instructions .Route 11/07/23 12/25/23 DIRECTED multivitamin 1 tab PO DAILY 11/07/23 12/25/23 omeprazole 20 mg capsule,delayed 40 mg PO DAILY 11/07/23 12/25/23 release oxybutynin chloride 10 mg 10 mg PO DAILY 11/07/23 12/25/23 tablet,extended release 24 hr folic acid 1 mg tablet 1 mg PO DAILY 12/05/23 12/25/23 cyclobenzaprine 10 mg tablet 10 mg PO TID PRN #20 tabs 12/25/23 prednisone 20 mg tablet 60 mg (3 x 20 mg) PO DAILY 4 days 12/25/23 #12 tabs rosuvastatin 20 mg tablet 20 mg PO DAILY 12/25/23 12/25/23 Previous Rx's ?Medication ?Instructions ?Recorded cyclobenzaprine 10 mg tablet 10 mg PO TID PRN #20 tabs 12/25/23 prednisone 20 mg tablet 60 mg (3 x 20 mg) PO DAILY 4 days 12/25/23 #12 tabs Allergies Allergy/AdvReac Type Severity Reaction Status Date / Time lidocaine Allergy Severe Flushing Unverified 12/25/23 16:39 of face leflunomide (From Arava) Allergy Unknown Unknown Verified 12/25/23 16:39 lisinopril Allergy Unknown cough Verified 12/25/23 16:39 doxycycline Allergy cough Verified 12/25/23 16:39 duloxetine (From Cymbalta) Allergy dry mouth Verified 12/25/23 16:39 and appetite loss Latex, Natural Rubber Allergy Skin Rash Unverified 12/25/23 16:39 mirtazapine Allergy Nausea Verified 12/25/23 16:39 simvastatin Allergy myalgia Verified 12/25/23 16:39 codeine AdvReac Intermediate Nausea Unverified 12/25/23 16:39 ciprofloxacin AdvReac Mild GI Upset Unverified 12/25/23 16:39 methotrexate AdvReac Unknown increased Verified 12/25/23 16:39 infection General Stated Complaint: Nk/Back Pain PATRICE: 3 Review of Systems All systems reviewed & are unremarkable except as noted in HPI and below Constitutional Constitutional: Denies chills, Denies fever(s) and Denies weakness Cardiovascular Cardiovascular: Denies chest pain and Denies dyspnea Respiratory Respiratory: Denies cough and Denies dyspnea Gastrointestinal Gastrointestinal: Denies abdominal pain, Denies nausea and Denies vomiting Musculoskeletal Musculoskeletal: Reports arthralgias and Denies joint swelling Neurologic Neurologic: Denies weakness Exam Const General: no acute distress Orientation: alert [facility] Head: normal to inspection Ears: external ears normal General nose exam: external nose normal Mouth: moist mucous membranes Eyes General: appearance normal, both eyes and all related structures Neck Neck: normal visual inspection Resp Effort & Inspection: normal respiratory effort and able to speak in complete sentences Cardio Rate: regular rate GI Palpation: soft and nontender Back/Spine/Pelvis Back: no CVA tenderness Thoracic/Lumbar Spine: No thoracic spinal tenderness and No lumbar spinal tenderness Skin General skin exam: no rashes or lesions noted Neuro General: patient alert and patient oriented x3 Extrem General: capillary refill normal, no cyanosis and no edema Psych Mental Status: mental status grossly normal Course Vital Signs Vital signs: Vital Signs Pulse 101 H 12/25/23 16:37 Respiratory Rate 18 12/25/23 16:37 Blood Pressure 158/70 H 12/25/23 16:37 Pulse Oximetry 96 12/25/23 16:37 Pulse 101 H 12/25/23 16:37 Respiratory Rate 18 12/25/23 16:37 Blood Pressure 158/70 H 12/25/23 16:37 Blood Pressure Position Sitting 12/25/23 16:37 Pulse Oximetry 96 12/25/23 16:37 Oxygen Delivery Method Room Air 12/25/23 16:37 Oxygen Flow Rate 0 12/25/23 16:37 Pain Level 10 12/25/23 16:37 Medical Decision Making 70-year-old female with a history of psoriasis and psoriatic arthritis comes in with right-sided hip pain. She says yesterday she was soaking her feet in a bucket and then she bent down to move and had some pain in her right hip. Denies falls or other trauma. No fevers, no abdominal pain, no back pain, no changes in urinary bowel habits. She is alert and oriented x 4 on arrival. She has reproducible tenderness over the right lateral hip with limited range of motion due to pain. She is intact distal sensation and pulses in the foot. There is no discoloration of the foot and no swelling, no calf tenderness. Suspect strain or possibly bursitis. Will obtain x-rays to evaluate for possible pathological fracture though seems unlikely given lack of falls. X-ray shows degenerative joint disease otherwise no acute findings. Patient stable feels better after Toradol. She still has no back pain, no saddle anesthesia, intact distal sensation and pulses. I suspect arthritis or hip strain, she will follow-up with her PCP if not improving and return precautions given. Will provide a short course of muscle relaxers as she says that this has helped her with muscle spasms in the past. Differential Diagnosis Differential Diagnosis: Strain, sprain, bursitis Quality:SDOH Health Related Social Needs: No Data to Display PFSH All Active Problems (Updated 10/24/23 @ 11:08 by Catie Neil) Arthritis of right hip (Acute) Strain of right hip (Acute) KAYLIE (obstructive sleep apnea) (Chronic) Pulmonary fibrosis, unspecified (Acute) Psoriatic arthritis (Acute) Bilateral sensorineural hearing loss (Acute) 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 episodic diverticulitis - last episode three weeks ago H/O surgical procedure (Chronic) a. arthroscopic left knee surgery b. tubal ligation c. appendectomy as a child Medical History (Updated 12/25/23 @ 18:24 by Donald Franklin MD) Cough Aortic atherosclerosis AAA (abdominal aortic aneurysm) Pre-diabetes Fatty liver Heart murmur Lichen sclerosus Former smoker Osteoarthritis of both hips Osteoarthritis of both knees GERD (gastroesophageal reflux disease) Hiatal hernia with GERD Diverticulitis of intestine with abscess Psoriasis Hyperlipidemia Surgical History (Updated 10/24/23 @ 11:08 by Catie Neil) History of open sigmoidectomy Ligation of fallopian tube Arthroplasty of knee (~05/2009) right knee torn medial and lateral meniscus; Meniscectomy and chonfroplasty of medial femoral condyle. Appendectomy childhood Family History (Updated 10/24/23 @ 11:01 by Catie Neil) Mother , age 72 yrs Diabetes Heart disease Hyperlipidemia Myocardial infarction EtOH dependence Substance use disorder Diverticulitis of complications of diverticulitis Father , PNEUMONIA at age 92. Heart disease Hyperlipidemia Sister Alcohol abuse Sister Heart disease Grandfather Heart disease Grandmother Asthma Sister Neoplasm LEUKEMIA Social History (Updated 10/24/23 @ 11:09 by Catie Neil) Smoking/Tobacco Use Status: Former Tobacco Use tobacco type: cigarettes Tobacco: How many years used: 48 Smoking risk assessment performed?: Yes Alcohol Intake: never Drug use: Never Substance use type: does not use Housing: house Do you feel safe at home: Yes Do you feel safe in your relationship?: Yes
--- NOTE | 2023-12-25 17:14 | DI.RAD_ITS ---
Exam(s) XR HIP RT COMPLETE AP PELVIS EXAM: XR HIP RT COMPLETE AP PELVIS CLINICAL HISTORY: right hip pain. TECHNIQUE: 2D digital imaging was performed. Two views COMPARISON: No exams were available for comparison FINDINGS: BONES: No acute fracture is present. No bony destructive lesion is seen. JOINTS: No dislocation present. Moderate bilateral hip joint space narrowing and periarticular spur ring. Degenerative changes at the SI joints and pubic symphysis. SOFT TISSUE: Suture material noted in right lower quadrant. IMPRESSION: Degenerative changes of the hips. No acute abnormality. DATA REPOSITORY: RADIATION DOSE DELIVERED:
[2023-12-25] MEDS: Ketorolac 15 MG/ML VIAL IM (17:20)
[2023-12-25] MEDS: predniSONE 20 MG TAB 60 MG PO (18:33)
[2023-12-25] MEDS: Cyclobenzaprine 10 MG TAB, 3 TABS/BTL PO (18:34)
== END 2023-12-25 18:35 | disposition home or self-care (01) ==
PROVIDERS: Emergency Provider Emergency Medicine; PCP Family Medicine
DX: S76.011A Strain of muscle, fascia and tendon of right hip, initial encounter (principal); X50.0XXA Overexertion from strenuous movement or load, initial encounter; M16.11 Unilateral primary osteoarthritis, right hip
CPT/HCPCS: 96372; 99284; 73502; J1885; J7512

== ENCOUNTER 2024-02-26 06:55 | Day surgery (SDC) | payer MEDICARE, SELFPAY ==
[2024-02-26] VITALS (14 sets, daily range): BP systolic 131–149; BP diastolic 60–93; PULSE 67–86; RESP 14–21; TEMP 36.2–36.5; O2SAT 93–98; BMI 29.5
[2024-02-26] MEDS: Lactated Ringers 1,000 ML 30 ML IV (07:35)
--- NOTE | 2024-02-26 07:46 | ANES.PREOP_ITS ---
General Info Date of Service Date Performed: 02/26/24 Height: 5 ft 2 in Weight: 73.1 kg Body Mass Index (BMI): 29.5 Surgical Procedure: Operation Date: 02/26/24 08:55 Proposed Procedure Side Surgeon p Micro Laryngoscopy w/Polyp Excision Right Dom Leon MD Meds Allergies and Home Medications Allergies Allergy/AdvReac Type Severity Reaction Status Date / Time ipratropium Allergy Severe Other (See Verified 02/26/24 07:24 Comment) lidocaine Allergy Severe Flushing Verified 02/26/24 07:24 of face leflunomide (From Arava) Allergy Unknown Unknown Verified 02/26/24 07:24 lisinopril Allergy Unknown cough Verified 02/26/24 07:24 doxycycline Allergy cough Verified 02/26/24 07:24 duloxetine (From Cymbalta) Allergy dry mouth Verified 02/26/24 07:24 and appetite loss Latex, Natural Rubber Allergy Skin Rash Verified 02/26/24 07:24 mirtazapine Allergy Nausea Verified 02/26/24 07:24 simvastatin Allergy myalgia Verified 02/26/24 07:24 codeine AdvReac Intermediate Nausea Verified 02/26/24 07:24 ciprofloxacin AdvReac Mild GI Upset Verified 02/26/24 07:24 methotrexate AdvReac Unknown increased Verified 02/26/24 07:24 infection Home Medication ?Medication ?Instructions ?Recorded cholecalciferol (vitamin D3) 50 50 mcg PO DAILY 06/23/20 mcg (2,000 unit) tablet (Vitamin D3) acetaminophen 500 mg capsule 500 mg PO Q6H PRN 08/22/22 clobetasol 0.05 % topical cream 1 applic topical BID PRN 08/22/22 docusate sodium 100 mg capsule 100 mg PO DAILY PRN 08/22/22 (Colace) vitamin B complex 1 tab PO DIRECTED 08/22/22 aspirin 81 mg tablet,delayed 81 mg PO DAILY 10/24/23 release benzonatate 100 mg capsule 100 mg PO TID 10/24/23 methylprednisolone 4 mg tablet 8 mg PO DAILY 10/24/23 metoprolol tartrate 25 mg tablet 25 mg PO DAILY 10/24/23 nitroglycerin 0.4 mg sublingual 0.4 mg sublingual Q5M PRN 10/24/23 tablet calcium See Rx Instructions .Route 11/07/23 DIRECTED multivitamin 1 tab PO DAILY 11/07/23 omeprazole 20 mg capsule,delayed 40 mg PO DAILY 11/07/23 release oxybutynin chloride 10 mg 10 mg PO DAILY 11/07/23 tablet,extended release 24 hr folic acid 1 mg tablet 1 mg PO DAILY 12/05/23 rosuvastatin 20 mg tablet 20 mg PO DAILY 12/25/23 [facility] Active Problems Active Problems: Problem Status Onset Code 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 Hoarseness of voice Acute R49.0 KAYLIE (obstructive sleep apnea) Chronic G47.33 Pulmonary fibrosis, unspecified Acute J84.10 Psoriatic arthritis Acute L40.50 Bilateral sensorineural hearing loss Acute H90.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 Acute H90.71 Lung nodule seen on imaging study Acute R91.1 Vitamin D deficiency Chronic 06/09/17 E55.9 Urinary incontinence Chronic 06/17/14 R32 Right hip pain Chronic 05/30/17 M25.551 Osteopenia Chronic M85.80 Neck pain Chronic M54.2 Low back pain Chronic 01/19/06 M54.5 Lichen sclerosus et atrophicus of the vulva Chronic 06/30/15 N90.4 Diverticulosis of colon without diverticulitis Chronic K57.30 Atrophic vaginitis Chronic 06/17/14 N95.2 Anxiety Chronic 12/08/14 F41.9 Dyspepsia Chronic K30 Elevated random blood glucose level Resolved 08/03/14 R73.09 History of tobacco use Resolved Z87.891 Diverticulosis Chronic K57.90 H/O surgical procedure Chronic Z98.89 Medical History Medical History Cough Aortic atherosclerosis AAA (abdominal aortic aneurysm) Pre-diabetes Fatty liver Heart murmur Lichen sclerosus Former smoker Osteoarthritis of both hips Osteoarthritis of both knees GERD (gastroesophageal reflux disease) Hiatal hernia with GERD Diverticulitis of intestine with abscess Psoriasis Hyperlipidemia Surgical History Surgical History History of open sigmoidectomy Ligation of fallopian tube Arthroplasty of knee (~05/2009) right knee torn medial and lateral meniscus; Meniscectomy and chonfroplasty of medial femoral condyle. Appendectomy childhood Tobacco Smoking/Tobacco Use Status: Former Tobacco Use Alcohol Alcohol Intake: never Substance Use Substance use: Never Substance use type: does not use Vital Signs and Lab Results Vital Signs Most Recent Vital Signs in EMR: Most Recent Vital Signs Temp Pulse Resp BP Pulse Ox 36.2 C L 86 16 149/71 H 98 02/26/24 07:07 02/26/24 07:07 02/26/24 07:07 02/26/24 07:07 02/26/24 07:07 Lab Results Blood Type / Crossmatch: No Data to Display Complete Blood Count: No Data to Display Complete Metabolic Panel: No Data to Display Liver Function Panel: No Data to Display Coagulation Panel: No Data to Display Cardiac Panel: No Data to Display Arterial Blood Gas: No Data to Display Venous Blood Gas: No Data to Display Pancreas Panel: No Data to Display Thyroid Panel: No Data to Display Infectious Disease: No Data to Display Blood Cultures: No Data to Display Toxicology Panel: No Data to Display Anesthesia Assessment and Plan Anesthesia History Personal History: No History of Anesthesia Complications Family History: No Family History of Anesthesia Complications Exercise Tolerance Exercise Tolerance: Metabolic Equivalents>4 Cardiac & Pulmonary Exam Cardiac Exam: Normal S1/S2 Heart Sounds Pulmonary Exam: Clear Bilateral Breath Sounds Implantable Cardiac Device Does patient have a Pacemaker or an ICD?: No Airway Exam Known Difficult Airway: No Mallampati Class: 4 Mouth Opening: Narrow (< 3cm) Thyromental Distance: Less than 3 cm Neck Range of Motion: Limited ROM Neck Circumference: Normal Teeth Condition: Edentulous ASA Classification ASA Score: ASA 3 Emergency Case?: No NPO Status NPO Status: NPO Clears >2 hours, Solids >8 hours Anesthesia Plan Resuscitation Status: Full Code Anesthesia Technique: General Anesthesia Airway Planned: Endotracheal Tube Monitors Used: Standard Monitors Preoperative Comments:: 78 yo female with multiple drug sensitivities for vocal cord biopsy. Sig PMHx: AAA (3 cm distal, ? metoprolol - took today), pulm fibrosis (breathing feels good today), KAYLIE (no CPAP yet), GERD (omeprazole, not very well controlled), psoriatic arthritis (methylprednisolone 8 mg - took today) anxiety, former smoker, EKG: Sinus, iRBBB, LVH. ECHO: LVEF 59%, trace MR, concentric LVH. Stress: Normal study after maximal exercise, poor functional capacity, 7 METS. PFTs: no evidence of obstruction, mild restriction. DLCO 66% Carotid US: no sig stenosis.
--- NOTE | 2024-02-26 08:19 | W.PM.DSUDISC ---
Date of service: 02/26/24 Discharge Plan Disposition Patient Disposition: Home Condition: Good Discharge Details Reason For Visit: Microlaryngoscopy with L TVC mass excision Attending Provider: Dom Leon Primary Care Provider: Nara Contreras Home Meds and New Rx's Prescriptions: No Action oxybutynin chloride 10 mg tablet extended release 24hr 10 mg PO DAILY multivitamin Tablet 1 tab PO DAILY calcium See Rx Instructions .ROUTE DIRECTED Rx Instructions: as directed; omeprazole 20 mg capsule,delayed release(DR/EC) 40 mg PO DAILY Patient Comments: TAKE ONE CAPSULE BY MOUTH EVERY DAY 30 MINUTES BEFORE MORNING MEAL folic acid 1 mg tablet 1 mg PO DAILY vitamin B complex Tablet 1 tab PO DIRECTED acetaminophen 500 mg capsule 500 mg PO Q6H PRN clobetasol 0.05 % cream 1 applic topical BID PRN docusate sodium [Colace] 100 mg capsule 100 mg PO DAILY PRN aspirin 81 mg tablet,delayed release (DR/EC) 81 mg PO DAILY metoprolol tartrate 25 mg tablet 25 mg PO DAILY nitroglycerin 0.4 mg tablet, sublingual 0.4 mg sublingual Q5M PRN Rx Instructions: do not exceed 3 doses per episode benzonatate 100 mg capsule 100 mg PO TID methylprednisolone 4 mg tablet 8 mg PO DAILY rosuvastatin 20 mg tablet 20 mg PO DAILY Patient Comments: TAKE ONE TABLET BY MOUTH EVERY EVENING cholecalciferol (vitamin D3) [Vitamin D3] 50 mcg (2,000 unit) Tablet 50 mcg PO DAILY Discharge Instructions Additional Instructions: Continue current medications. Maintain good hydration. Avoid shouting and whispering. Call with any questions or concerns or if you are unable to reach me and you feel it is an emergency, please proceed to the emergency room or call 911. Call if you do not hear from me within 1 week with regard to pathology results. Ibuprofen or Tylenol for any discomfort. Referrals: Dom Leon MD [ [facility] STAFF PHYSICIAN] - (1 month, please call for appointment prior to patient's departure) Discharge Orders Discharge Orders: Discharge Order (Routine); Ordered 02/26/24 Ordered By: Dom Leon
--- NOTE | 2024-02-26 08:22 | ROE_ITS ---
Operative Note Operative Note PRE-OP DIAGNOSIS: Hoarseness, left vocal cord mass POST-OP DIAGNOSIS: other (Right ventricular fold mass) PROCEDURE: Microlaryngoscopy with excision of right ventricular fold mass SURGEON: Dom Leon ANESTHESIA TYPE: General LMA/ETT Refer to Anesthesia Record ESTIMATED BLOOD LOSS: 1 PATHOLOGY: other (Right ventricular fold mass) COMPLICATIONS: None Patient was transported to: PACU Patient's condition: stable Indications: Patient with an anterior vocal cord mass and persistent hoarseness. Options were explained to the patient regarding further management. She elected to undergo the procedure. Consent was filled and signed prior to procedure. H&P was reviewed. There have been no changes. Preoperative clearance had been obtained. Findings: No masses on the vocal cords themselves. 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 This was solitary. Procedure Description: After obtaining an adequate level of general endotracheal anesthesia the patient was positioned in the supine position and prepped and draped in appropriate fashion. A [employer] laryngoscope was carefully introduced into the oral cavity and advanced into the larynx, affording excellent view of the larynx. This was placed into suspension and then the operating microscope with a 400 mm lens moved into position. The mass which appeared sessile in nature, was found to be arising from the right ventricular fold. This was grasped and medialized and then marsupialized broadly. No damage was done to the vocal cords themselves. The cyst contents as well as the cyst component that was excised were placed in formalin and sent to pathology. Bleeding was minimal and self-limited. Following this, and following reinspection of the larynx, the laryngoscope was carefully withdrawn after ensuring adequate hemostasis. The patient was then awakened and extubated by anesthesia and taken the recovery room in stable condition. I was present throughout the entire case. Date of Procedure: 02/26/24
--- NOTE | 2024-02-26 09:12 | VOCCOR_PTH ---
PATIENT: Bryanna Olson LOC: [facility] U#:[id number] AGE/SX: 78/F ROOM: RE02/26/[address]: Dom Leon MD : 1945 BED: DIS: 02/26/2024 SPEC #: [id number] RECD: 02/26/24 12:45 STATUS: DISHA REQ #: [id number] MEKHI: 02/26/24 09:[address]: Dom Leon DEPT: Surgical Specimen RECD BY: Hailee Brewster ENTERED: 02/26/24 12:47 SP TYPE: VOCCOR OTHR DR: Nara Contreras Tissues: 1 - VOCAL CORD Procedures: GROSS AND MICRO LEVEL 4 Comments: [id number] @ Originally on account #[id number] Req #[id number]
--- NOTE | 2024-02-26 09:39 | W.ANESPOSTOP ---
Postoperative Evaluation Date, Time and Location Date Performed: 02/26/24 Time Performed: 09:39 Patient Location: PACU Vital Signs Most Recent Imported Vital Signs: Most Recent Vital Signs Temp Pulse Resp BP Pulse Ox 36.2 C L 74 21 131/60 93 02/26/24 09:32 02/26/24 09:30 02/26/24 09:31 02/26/24 09:30 02/26/24 09:31 Pain Score Most Recent Pain Score: Most Recent Pain Score Pain Level 0 02/26/24 09:32 Assessment Mental Status: Arousable with meaningful communication Airway and Respiratory Function: Patent airway with normal (patient baseline) respiratory exam Cardiovascular Function: Hemodynamically Stable Hydration Status: Adequately Hydrated Nausea & Vomiting: No Nausea or Vomiting Pain: Pt. Denies Any Pain Peripheral Nerve Block: Patient did not receive a nerve block
== END 2024-02-26 10:46 | disposition home or self-care (01) ==
PROVIDERS: PCP Family Medicine; Visit Provider Otolaryngology
PROC: 0CJS8ZZ Inspection of Larynx, Via Natural or Artificial Opening Endoscopic (ICD-10-PCS; CPT 31575; principal; 2024-02-26 08:45)
DX: J38.7 Other diseases of larynx (principal); J38.1 Polyp of vocal cord and larynx; R49.0 Dysphonia; G47.33 Obstructive sleep apnea (adult) (pediatric); J84.10 Pulmonary fibrosis, unspecified
CPT/HCPCS: 31541; 88305; J2003; J2405; J2704

== ENCOUNTER → 2024-03-26 13:46 | Outpatient (BNVA) | payer MEDICARE, SELFPAY | PROVIDERS: PCP Family Medicine; Referring Provider Family Medicine; Visit Provider Physician Assistant Surgical | DX: J84.10 Pulmonary fibrosis, unspecified (principal); G47.33 Obstructive sleep apnea (adult) (pediatric); L40.50 Arthropathic psoriasis, unspecified; Z87.891 Personal history of nicotine dependence | CPT/HCPCS: 99215 ==

== ENCOUNTER 2024-05-15 00:49 | Outpatient (CLI) | payer MEDICARE, SELFPAY ==
--- NOTE | 2024-05-15 | DI.MRI_ITS ---
Exam(s) MR LUMBAR SPINE WO EXAM: MR LUMBAR SPINE WO CLINICAL HISTORY: S32.010A LBP; L1 L2 compression FXS, STIR imaging evaluate bones edema. TECHNIQUE: Multiplanar multisequence MRI of the Lumbar spine was performed. COMPARISON: CT chest abdomen pelvis [address] 14 December 2023 FINDINGS: Bones: The last intervertebral disc space is designated the L5/S1 level for the numbering purpose of this ex amination. Moderate to severe compression fracture of T11, not present on the prior CT. Invagination of the disc . No retropulsion. The some high signal within the central portion of the vertebral body. [id number] compression of the inferior L5 endplate of L1. Mild edema in the end plate. Alignment: Mild degenerative biconvex scoliosis. Cord: The conus tip ends at the L1 level. It is of normal size and signal intensity. T11-12: Superior portion of the disc invaginate into the inferior endplate T11. There facet osteophyt es which mildly encroach into the central canal. T12-L1: No focal disc herniation is present. No central spinal canal stenosis.No neural foraminal st enosis. L1-2:Posteriorly for projecting disc osteophyte. Facet degenerative changes and ligamentous hypertrop hy. No focal disc herniation is present. Mild central spinal canal stenosis.No neural foraminal sten osis. L2-3:Asymmetric loss of disc height eccentric toward the right with prominent endplate osteophytes ec centric toward the right. Facet degenerative changes and ligamentous hypertrophy. No focal disc herni ation is present. Mild central spinal canal stenosis.Mild to moderate by neural foraminal stenosis. L3-4: Asymmetric loss of disc height eccentric toward the left where there are prominent endplate ost eophytes. Disc bulging eccentric toward the left. Focal left paracentral disc protrusion. Facet degen erative changes and ligamentous hypertrophy. Moderate central spinal canal stenosis.Severe left elie ral foraminal stenosis. L4-5:The disc height is maintained. Tkog-au-vdmrphmi concentric disc bulging. Facet degenerative hamilton ges, greater on the left. Ligamentous hypertrophy. No focal disc herniation is present. Mild central spinal canal stenosis.Moderate left neural foraminal stenosis. L5-S1: Moderate loss of disc height. Small endplate osteophytes.No focal disc herniation is present. No central spinal canal stenosis.Mild bilateral neural foraminal stenosis. The visualized SI joints and sacrum are unremarkable. Soft tissues: The paraspinal soft tissues are unremarkable. IMPRESSION: Moderate to severe compression fracture T11 with marrow edema hallux consistent with acute to subacut e fracture. Mild compression of the inferior endplate of L1 with minimal adjacent edema, consistent w ith subacute to old fracture. Multilevel degenerative disc changes and facet degenerative changes. Moderate central canal stenosis there it is a focal left paracentral disc protrusion at L3-4 contributing to moderate central canal s tenosis. Multilevel bilateral neural foraminal narrowing. DATA REPOSITORY: on
== END 2024-05-15 01:09 ==
LOC: DI 00:49
PROVIDERS: PCP Family Medicine; Visit Provider Nurse Practitioner
DX: S22.080A Wedge compression fracture of T11-T12 vertebra, initial encounter for closed fracture (principal); X58.XXXA Exposure to other specified factors, initial encounter
CPT/HCPCS: 72148

== ENCOUNTER → 2024-09-24 13:10 | Outpatient (BNVA) | payer MEDICARE, SELFPAY | PROVIDERS: PCP Family Medicine; Referring Provider Family Medicine; Visit Provider Internal Medicine Pulmonary Disease | DX: J84.9 Interstitial pulmonary disease, unspecified (principal); R91.8 Other nonspecific abnormal finding of lung field; G47.33 Obstructive sleep apnea (adult) (pediatric); L40.50 Arthropathic psoriasis, unspecified; Z87.891 Personal history of nicotine dependence | CPT/HCPCS: 99214 ==

== ENCOUNTER 2024-10-03 02:38 | Observation (INO) | payer MEDICARE, SELFPAY ==
[2024-10-03] VITALS (156 sets, daily range): BP systolic 76–158; BP diastolic 44–88; PULSE 75–150; RESP 16–47; TEMP 36.3–37.5; O2SAT 90–97
--- NOTE | 2024-10-03 02:30 | RT.EKG_ITS ---
APPROVED REPORT Exam: Resting ECG Reason for Exam: high pulse Patient Location: E HR:121 bpm ECG Measurements Heart Rate 121 AXIS HI 151 P 7 QRSd 104 QRS 39 QT 321 T 28 QTc 456 Conclusion Sinus tachycardia...rate> [address] depression, anterior leads...ST <-0.07mV, V2-V4 ST depressions V2-V5 concerning for posterior infarct, posterior ekg requested
--- NOTE | 2024-10-03 02:45 | RT.EKG_ITS ---
APPROVED REPORT Exam: Resting ECG Reason for Exam: chest pain; posterior leads Patient Location: E HR:133 bpm ECG Measurements Heart Rate 133 AXIS SD 110 P -1 QRSd 113 QRS -25 QT 306 T -5 QTc 455 Conclusion Sinus tachycardia...rate> 99 Incomplete right bundle branch block...QRSd >112, terminal axis(90,270) POSTERIOR EKG Not suggestive of occlusive [place]
[2024-10-03 03:15] LABS: Abs Immature Grans 0.05 10^3/uL (0.0-0.06); HCT 39.1 % (36.0-46.0); HGB 11.3 g/dL (11.2-15.7); Immature Grans % 0.4 %; MCH 22.0 pg (27.0-33.0); MCHC 28.9 % (32.0-36.0); MCV 76 fL (80-95); MPV 9.9 fL (8.0-11.0); Platelet Count 293 10^3/uL (130-400); RBC 5.13 10^6/uL (3.93-5.22); RDW 17.4 % (11.7-14.6); RDW-SD 47.6 fL; WBC 12.12 10^3/uL (4.4-10.8)
[2024-10-03] MEDS: Aspirin 81 MG CHEW 324 MG CH (03:15)
--- NOTE | 2024-10-03 03:15 | DI.CT_ITS ---
Exam(s) CT THORAX ABD/PEL CTA EXAM: CT THORAX ABD/PEL CTA CLINICAL HISTORY: eval for aortic dissection, aneurysem. TECHNIQUE: Imaging Protocol: Axial CT angiography was performed with multi- slice acquisition and multi-planar and/or 3D reconstructions. CONTRAST MATERIAL: Intravenous: Omnipaque 350 Contrast volume:100 mL Oral: / no COMPARISON: CT CT THORAX ABD/PEL CTA from 01/31/[address] CHEST HIGH RESOLUTION from 12/14/2023 MR MR LUMBAR SPINE WO from 05/15/2024 FINDINGS: CHEST: Pulmonary Arteries: No evidence of filling defect to suggest pulmonary emboli. Tracheobronchial tree: Patent where visualized. Mediastinum and Louise: No dominant adenopathy or fluid collection. Pulmonary parenchyma: No consolidation or dominant measurable mass. Stable right upper and lower lobe nodules. Interstitial changes. Pleura: No effusion or pneumothorax. Heart: The heart is not dilated. No coronary artery calcifications are seen. Aorta: Thoracic aorta non-dilated. Atherosclerotic changes of the descending thoracic aorta. Bones: Stable compression fracture of T5. New compression fracture of T8, and T9 since 2023. The T11 compression fracture is stable when compared with prior MRI. Tubes, Catheters, and Lines: None Vasculature of the ABDOMEN AND PELVIS: Abdomen: Celiac axis/mesenteric arteries: No evidence of occlusion or significant stenosis. Renal Arteries: No evidence of occlusion or significant stenosis. There is a single renal artery perfusing each kidney. Aorta: Stable 2.7 centimeter infrarenal aneurysm. There is significant mural thrombus and calcification distally, causing significant stenosis. Pelvis: Iliac Arteries: Also severe disease involving the bilateral common iliac arteries, with severe stenosis on the left. The internal and external iliac arteries show no evidence of occlusion or significant stenosis. Common Femoral Arteries: No evidence of occlusion or significant stenosis. ABDOMEN: Liver: Normal density. No measurable mass. Portal, Superior Mesenteric, and Splenic Veins: Unremarkable. Gallbladder and Biliary Tract: No radiodense calculus or dilation. Pancreas: Normal density, no abnormal calcifications or inflammatory process. Spleen: Normal. Adrenals: No masses seen. Kidneys: Normal size, contour and axis. No radiodense stones or obstructive uropathy. No masses seen. Bowel: No obstruction or bowel wall thickening. Appendectomy. Diverticulosis. No evidence of diverticulitis. Normal quantity of stool. Peritoneal Cavity: No ascites, collection or mesenteric inflammatory response. Lymph Nodes: Within normal limits. Bones: Stable compression of the inferior endplate of L1. Soft Tissues: Unremarkable. PELVIS: Bladder: Symmetric distention, no gross wall thickening. Reproductive Organs: Unremarkable as visualized. Lymph Nodes: Within normal limits. Bones: Within normal limits. IMPRESSION: Multiple thoracic compression fractures. Severe atherosclerotic changes of the aorta diverticula distally where there is a 2.7 centimeter aneurysm. Significant mural thrombus and severe narrowing distally. Severe narrowing of the common iliac arteries. No significant change from prior. The preliminary [facility] report was reviewed. RADIATION DOSE DELIVERED: 789.62mGy.cm Total DLP DATA REPOSITORY: All CT scans at this facility are submitted to the National Radiology Data Registry (NRDR) Dose Index Registry (DIR) with the [employer] (ACR). RADIATION OPTIMIZATION: All CT scans at this facility use at least one of these dose optimization techniques: automated exposure control; mA and/or kV adjustment per patient size (includes targeted exams where dose is matched to clinical indication); or iterative reconstruction.
[2024-10-03] MEDS: nitroGLYcerin 0.4 MG TAB SL (03:16)
[2024-10-03] MEDS: Ondansetron 4 MG/2 ML VIAL IVP ×2 (03:18→11:58)
[2024-10-03] MEDS: MORPHine 4 MG/ML SYR IVP ×3 (03:22→09:57)
[2024-10-03 03:31] LABS: ALT 27 U/L (14-59); AST 14 U/L (15-37); Albumin 3.6 g/dL (3.4-5.0); Alkaline Phosphatase 56 U/L (46-116); Anion Gap 9.3 mmol/L (3-11); BUN 21 mg/dL (7-18); Bilirubin, Total 0.4 mg/dL (0.2-1.0); CO2 27.7 mmol/L (21.0-32.0); Calcium 9.6 mg/dL (8.5-10.1); Chloride 104 mmol/L (98-107); Estimated GFR 57.31 (mL/min/1.73m2); Glucose 135 mg/dL (74-106); Magnesium 1.6 mg/dL (1.8-2.4); NT-proBNP 660 pg/mL (<300); Potassium 3.7 mmol/L (3.5-5.1); Sodium 141 mmol/L (136-145); TSH (W/Ref FT4) 1.57 uIU/mL (0.36-3.74); Total Protein 7.0 g/dL (6.4-8.2); Troponin I 31 ng/L (<or=51)
[2024-10-03 03:33] LABS: D-Dimer 1604 ng/mlFEU (<500)
[2024-10-03] MEDS: Omnipaque 350 MG/ML 100 ML BTL IJ (03:50)
[2024-10-03] MEDS: Normal Saline - Diluent 50 ML VIAL IJ (03:51)
[2024-10-03 03:55] LABS: Lab Add On Test DONE
[2024-10-03 04:04] LABS: INR 0.9 (0.9-1.1); PTT Activated 20.7 sec (20.6-30.2); Prothrombin Time 9.3 sec (9.1-11.1)
[2024-10-03 04:06] LABS: Lipase 24 U/L (<78)
--- NOTE | 2024-10-03 04:12 | DI.[facility]_ITS ---
PROCEDURE INFORMATION: Exam: CTA Chest With Contrast CTA Abdomen and Pelvis With Contrast Exam date and time: 10/03/2024 3:34 AM Age: 79 years old Clinical indication: Chest pressure; Other: Chest pain; Prior surgery; Surgery date: 6+ months; Surgery type: Appendectomy; Eval for aortic dissection, aneurysem TECHNIQUE: Imaging protocol: Computed tomographic angiography of the chest with contrast. Exam focused on the arteries. Computed tomographic angiography of the abdomen and pelvis with contrast. Exam focused on the arteries. 3D rendering (Not supervised by radiologist): MIP and/or 3D reconstructed images were created by the technologist. Radiation optimization: All CT scans at this facility use at least one of these dose optimization techniques: automated exposure control; mA and/or kV adjustment per patient size (includes targeted exams where dose is matched to clinical indication); or iterative reconstruction. Contrast material: [id number]; Contrast volume: 100 ml; Contrast route: INTRAVENOUS (IV); COMPARISON: CT THORAX ABD/PEL CTA 01/31/2023 12:15 PM FINDINGS: Limitations: Mild motion artifact. VASCULATURE: Pulmonary arteries: No pulmonary embolus is appreciated. Aorta: Extensive atherosclerotic changes in the aorta and its branches. Partially thrombosed 3.3 cm infrarenal abdominal aortic aneurysm. This is increased from prior study. Celiac trunk and mesenteric arteries: No occlusion or significant stenosis. Renal arteries: No occlusion or significant stenosis. Right iliac arteries: No occlusion or significant stenosis. Left iliac arteries: Extensive irregular atherosclerotic narrowing in the left iliac artery. CHEST: Lungs: Fibrotic changes in the lungs. Right upper lobe nodule again identified. No focal consolidation seen. Pleural spaces: Trace pleural effusions. Heart: No pericardial effusion. Coronary arteries: Coronary artery calcifications. ABDOMEN AND PELVIS: Liver: No focal hepatic lesion seen. Gallbladder and biliary ducts: No radiodense gallbladder calculi identified. Pancreas: No evidence for acute pancreatitis. Spleen: No splenomegaly. Adrenal glands: Nodular adrenal thickening. Kidneys and ureters: Cortical thinning/lobulations in the kidneys. No hydronephrosis. Stomach and bowel: No intestinal obstruction is evident. Colonic diverticula. Appendix: No evidence of appendicitis. Intraperitoneal space: No free air. Urinary bladder: No focal abnormality. Reproductive: No acute abnormality. Lymph nodes: Nonspecific mesenteric and retroperitoneal lymph nodes. Bones/joints: Multiple compression deformities in the spine, age indeterminate in appearance but new or progressed since prior study. These involve L1, T11, T9, T8, and T5. Acute fractures cannot be excluded. Clinical correlation and comparison with more recent prior examinations advised. Soft tissues: Unremarkable. IMPRESSION: 1. Infrarenal abdominal aortic aneurysm. 2. Compression deformities in the spine as described above, age indeterminate in appearance but not seen on prior study and acute fractures are not excluded. Clinical correlation and comparison with more recent prior examinations advised. 3. Additional findings as above. Dictated and Authenticated by: Nisha Valles MD. Orderin Sierra Meyers MD
[2024-10-03 04:13] LABS: Troponin I 28 ng/L (<or=51)
[2024-10-03] MEDS: Magnesium Oxide 400 MG TAB PO (04:14)
--- NOTE | 2024-10-03 04:15 | RT.EKG_ITS ---
APPROVED REPORT Exam: Resting ECG Reason for Exam: chest pain Patient Location: E HR:125 bpm ECG Measurements Heart Rate 125 AXIS AR 145 P -6 QRSd 109 QRS 89 QT 320 T 64 QTc 462 Conclusion Sinus tachycardia...rate> 99 Ventricular premature complex...V complex w/ short R-R interval Nonspecific repol abnormality, diffuse leads...ST dep, T flat/neg, ant/lat/inf no ST segment or T wave abnormalities to suggest occlusive DC
--- NOTE | 2024-10-03 04:53 | W.ED.GENAD ---
Discharge Plan Disposition Patient Disposition: Admit to [facility] Condition: Serious Discharge Details Clinical Impression: Acute hypoxemic respiratory failure, Chest pain, Abnormal EKG, Heart failure Primary Care Provider: Nara Contreras ED Provider: Mira Esquivel Home Meds and New Rx's Prescriptions: No Action oxybutynin chloride 10 mg tablet extended release 24hr 10 mg PO DAILY multivitamin Tablet 1 tab PO DAILY omeprazole 20 mg capsule,delayed release(DR/EC) 40 mg PO DAILY Patient Comments: TAKE ONE CAPSULE BY MOUTH EVERY DAY 30 MINUTES BEFORE MORNING MEAL folic acid 1 mg tablet 1 mg PO DAILY acetaminophen 500 mg capsule 500 mg PO Q6H PRN clobetasol 0.05 % cream 1 applic topical BID PRN docusate sodium [Colace] 100 mg capsule 100 mg PO DAILY PRN aspirin 81 mg tablet,delayed release (DR/EC) 81 mg PO DAILY metoprolol tartrate 25 mg tablet 25 mg PO DAILY nitroglycerin 0.4 mg tablet, sublingual 0.4 mg sublingual Q5M PRN Rx Instructions: do not exceed 3 doses per episode methylprednisolone 4 mg tablet 8 mg PO DAILY rosuvastatin 20 mg tablet 20 mg PO DAILY Patient Comments: TAKE ONE TABLET BY MOUTH EVERY EVENING nitrofurantoin monohyd/m-cryst 100 mg capsule 100 mg PO Q12H Patient Comments: TAKE ONE CAPSULE BY MOUTH EVERY 12 HOURS FOR 7 DAYS methylprednisolone 8 mg tablet 8 mg PO DAILY Patient Comments: TAKE ONE TABLET BY MOUTH EVERY DAY WITH FOOD OR MILK cholecalciferol (vitamin D3) [Vitamin D3] 50 mcg (2,000 unit) Tablet 50 mcg PO DAILY HPI General Mode of arrival: ambulatory. Date/Time Provider Initiated Documentation: 10/03/24 02:40. Limitations to Documentation: no limitations. Information obtained by: patient. HPI Narrative: 79yo F with hx of interstitial lung disease/pulmonary fibrosis presenting for chest pain. Around 2300 noted dull heavy substernal chest pain radiating to her left hand, worse with exertion. Associated shortness of breath that started aroudn the same time. Has something similar happen around a year ago, not sure if she was diagnosed with anything at that time. Has nitro available at home but did not take it- she is not sure why she has it prescribed and has never actually taken it in the past. States no prior heart attacks, heart failure, or heart disease that she is aware. Does have an AAA. Prior to the sudden onset of symptoms today, felt entirely normal. No recent illness. No cough, fever or rhinnorhea. No nausea, vomiting or abdominal pain. Otherwise in her usual state of health. Related Data Home Medications ?Medication ?Instructions ?Recorded ?Confirmed cholecalciferol (vitamin D3) 50 50 mcg PO DAILY 06/23/20 10/03/24 mcg (2,000 unit) tablet (Vitamin D3) acetaminophen 500 mg capsule 500 mg PO Q6H PRN 08/22/22 10/03/24 clobetasol 0.05 % topical cream 1 applic topical BID PRN 08/22/22 10/03/24 docusate sodium 100 mg capsule 100 mg PO DAILY PRN 08/22/22 10/03/24 (Colace) aspirin 81 mg tablet,delayed 81 mg PO DAILY 10/24/23 10/03/24 release methylprednisolone 4 mg tablet 8 mg PO DAILY 10/24/23 10/03/24 Held on 10/03/24. Instructions: Changed by Provider metoprolol tartrate 25 mg tablet 25 mg PO DAILY 10/24/23 10/03/24 nitroglycerin 0.4 mg sublingual 0.4 mg sublingual Q5M PRN 10/24/23 10/03/24 tablet multivitamin 1 tab PO DAILY 11/07/23 10/03/24 omeprazole 20 mg capsule,delayed 40 mg PO DAILY 11/07/23 10/03/24 release oxybutynin chloride 10 mg 10 mg PO DAILY 11/07/23 10/03/24 tablet,extended release 24 hr folic acid 1 mg tablet 1 mg PO DAILY 12/05/23 10/03/24 rosuvastatin 20 mg tablet 20 mg PO DAILY 12/25/23 10/03/24 methylprednisolone 8 mg tablet 8 mg PO DAILY 10/03/24 10/03/24 nitrofurantoin 100 mg PO Q12H 10/03/24 10/03/24 monohydrate/macrocrystals 100 mg capsule Allergies Allergy/AdvReac Type Severity Reaction Status Date / Time ipratropium Allergy Severe Other (See Verified 10/03/24 02:47 Comment) lidocaine Allergy Severe Flushing Verified 10/03/24 02:47 of face leflunomide (From Arava) Allergy Unknown Unknown Verified 10/03/24 02:47 lisinopril Allergy Unknown cough Verified 10/03/24 02:47 doxycycline Allergy cough Verified 10/03/24 02:47 duloxetine (From Cymbalta) Allergy dry mouth Verified 10/03/24 02:47 and appetite loss Latex, Natural Rubber Allergy Skin Rash Verified 10/03/24 02:47 mirtazapine Allergy Nausea Verified 10/03/24 02:47 simvastatin Allergy myalgia Verified 10/03/24 02:47 codeine AdvReac Intermediate Nausea Verified 10/03/24 02:47 ciprofloxacin AdvReac Mild GI Upset Verified 10/03/24 02:47 methotrexate AdvReac Unknown increased Verified 10/03/24 02:47 infection General Stated Complaint: Chest Pain PATRICE: 2 Review of Systems Narrative: see HPI Exam Narrative Exam Narrative: General: Alert. Head: Normocephalic, atraumatic Neck: Trachea midline, ?Neck supple. ENT: ?MMM.? No oropharygeal lesions or exudate. Cardiac: ?Tachycardiac, regular,, no murmurs appreciated Resp: Tachypneic, otherwise no increased WOB. CTAB. Abd: ?Soft, non-distended, nontender : ?No suprapubic tenderness. Extremities: ?No deformities.? No peripheral edema. Neurologic: GCS 15. ? Moves all extremities freely against gravity Course Vital Signs Vital signs: Vital Signs Temperature 37.1 C 10/03/24 02:42 Pulse 137 H 10/03/24 02:42 Respiratory Rate 25 H 10/03/24 02:42 Blood Pressure 158/81 H 10/03/24 02:42 Pulse Oximetry 91 L 10/03/24 02:42 Temperature 37.1 C 10/03/24 02:42 Temperature Source Tympanic 10/03/24 02:42 Pulse 129 H 10/03/24 04:32 Respiratory Rate 29 H 10/03/24 04:32 Respiratory Effort Short of Breath 10/03/24 02:51 Respiratory Depth Normal 10/03/24 02:51 Respiratory Pattern Normal 10/03/24 02:51 Blood Pressure 121/66 10/03/24 04:30 Blood Pressure Mean 85 10/03/24 04:30 Blood Pressure Position Sitting 10/03/24 02:42 Pulse Oximetry 94 10/03/24 04:32 Oxygen Delivery Method Room Air 10/03/24 02:42 Oxygen Flow Rate 0 10/03/24 02:42 Pain Level 9 10/03/24 02:42 Lab/Test Results Lab/Test Results: Laboratory Tests Range/Units 10/03/24 10/03/24 02:49 03:49 WBC (4.4-10.8) 10^3/uL 12.12 H RBC (3.93-5.22) 10^6/uL 5.13 Hgb (11.2-15.7) g/dL 11.3 Hct (36.0-46.0) % 39.1 MCV (80-95) fL 76 L MCH (27.0-33.0) pg 22.0 L MCHC (32.0-36.0) % 28.9 L RDW (11.7-14.6) % 17.4 H Plt Count (130-400) 10^3/uL 293 MPV (8.0-11.0) fL 9.9 Immature Gran % % 0.4 Neutrophils % % 85.2 Lymphocytes % % 9.3 Monocytes % % 3.3 Eosinophils % % 1.6 Basophils % % 0.2 Nucleated RBC % (0.0-0.3) % 0.0 Absolute Neutrophils (1.2-6.7) 10^3/uL 10.33 H Absolute Lymphocytes (1.2-3.4) 10^3/uL 1.13 L Absolute Monocytes (0.1-0.8) 10^3/uL 0.40 Absolute Eosinophils (0.0-0.7) 10^3/uL 0.19 Absolute Basophils (0.0-0.2) 10^3/uL 0.02 PT (9.1-11.1) sec 9.3 INR (0.9-1.1) 0.9 APTT (20.6-30.2) sec 20.7 D-Dimer (<500) ng/mlFEU 1604 H VBG Lactate (<or=2.0) mmol/L 3.1 H* Sodium (136-145) mmol/L 141 Potassium (3.5-5.1) mmol/L 3.7 Chloride (98-107) mmol/L 104 Carbon Dioxide (21.0-32.0) mmol/L 27.7 Anion Gap (3-11) mmol/L 9.3 BUN (7-18) mg/dL 21 H Creatinine (0.55-1.02) mg/dL 1.0 Est GFR (CKD-EPI 2020) (mL/min/1.73m2) 57.31 Glucose (74-106) mg/dL 135 H Calcium (8.5-10.1) mg/dL 9.6 Magnesium (1.8-2.4) mg/dL 1.6 L Total Bilirubin (0.2-1.0) mg/dL 0.4 AST (15-37) U/L 14 L ALT (14-59) U/L 27 Alkaline Phosphatase (46-116) U/L 56 Troponin I (<or=51) ng/L 31 28 NT-Pro-B Natriuret Pep (<300) pg/mL 660 H Total Protein (6.4-8.2) g/dL 7.0 Albumin (3.4-5.0) g/dL 3.6 Lipase (<78) U/L 24 TSH (0.36-3.74) uIU/mL 1.57 Add-On Test Request DONE Medical Decision Making 79yo F with hx of interstitial lung disease/pulmonary fibrosis presenting for chest pain, onset around 2300, dull heavy substernal chest pain radiating to her left hand and heart feeling wacky, worse with exertion. Associated shortness of breath.Tachycardiac on arrival to 130's, appears to be in some discomfort. Tachypneic otherwise no increased work of breathing and lungs CTAB. O2 sat 89-91% on room air; does not wear oxygen at home. Inital eval and resus: -EKG sinus tachycardia, anterior ST depressions concerning for possible posterior STEMI. Posterior EKG obtained and not consistent with STEMI; would not lyse at this time. -Given 325 of ASA as well as SL nitro. After nitro BP dropped (MAP remained >65) and pt c/o nausea and some lightheadeness. Given zofran with good effect. Minimal change in chest pain after nitro. -Given 4mg IV morphine with improvement in pain though still present. -Taken emergently to CT accompanied by RN and MD. CT independently reviewed, no dissection or ruptured AAA or saddle pulmonary embolism on my view. On return to the room pt with pain improved, now 'mostly pressure'. HR 100's-110's, remains sinus tachycardia. Will not treat rate as likely compensatory for underlying process yet TBD. ED course: -Labs reviewed as below, CBC with mild leukocytosis (nonspecific) and no anemia, CMP with no actionable abnormalities, Mg slightly low (oral replacement given), lipase not suggestive of pancreatits, TSH normal, coags, initial troponin 31, BNP mildly elevated at ~600 (? new onset CHF), lactate elevated at 3.1 -On reassessment reports chest pain returning; given additional IV morphine with good effect. -Repeat troponin 28. Repeat EKG similar to initial. VBG normal, repeat lactate normalized at 1.9. Symptoms worsen substantially with minimal exertion (using bedpan to provide urine sample); HR increases to 130's, chest pain and shortness of breath return. With sinus tachycardia and initially elevated lactate, must consider sepsis though patient without any clear infectious symptoms so unlikely and everything came on very acutely. Will get UA for completeness. ? unstable angina though would not explain acute hypoxic respiratory failure. CT radiology read with no clear acute findings. Discussed with [facility] cardiology; plan for [facility] on urgent basis. Accepted under Dr. Alves and listed for later today. Advised heparin gtt in the meantime, no plavix. Will be admitted to [facility] pending [facility] bed. Discussed with [facility] hospitalist; patient accepted to medicine service. Awaiting admission orders and transfer to inpatient unit. . Imaging Data Radiologic Study: Imaging: CT Scan Radiologist's impression: IMPRESSION: 1. Infrarenal abdominal aortic aneurysm. 2. Compression deformities in the spine as described above, age indeterminate in appearance but not seen on prior study and acute fractures are not excluded. Clinical correlation and comparison with more recent prior examinations advised. 3. Additional findings as above Lab Data Lab results reviewed: Yes I reviewed the patient's lab results. Labs: Laboratory Tests Range/Units 10/03/24 10/03/24 10/03/24 02:49 03:49 04:27 WBC (4.4-10.8) 10^3/uL 12.12 H RBC (3.93-5.22) 10^6/uL 5.13 Hgb (11.2-15.7) g/dL 11.3 Hct (36.0-46.0) % 39.1 MCV (80-95) fL 76 L MCH (27.0-33.0) pg 22.0 L MCHC (32.0-36.0) % 28.9 L RDW (11.7-14.6) % 17.4 H Plt Count (130-400) 10^3/uL 293 MPV (8.0-11.0) fL 9.9 Immature Gran % % 0.4 Neutrophils % % 85.2 Lymphocytes % % 9.3 Monocytes % % 3.3 Eosinophils % % 1.6 Basophils % % 0.2 Nucleated RBC % (0.0-0.3) % 0.0 Absolute Neutrophils (1.2-6.7) 10^3/uL 10.33 H Absolute Lymphocytes (1.2-3.4) 10^3/uL 1.13 L Absolute Monocytes (0.1-0.8) 10^3/uL 0.40 Absolute Eosinophils (0.0-0.7) 10^3/uL 0.19 Absolute Basophils (0.0-0.2) 10^3/uL 0.02 PT (9.1-11.1) sec 9.3 INR (0.9-1.1) 0.9 APTT (20.6-30.2) sec 20.7 D-Dimer (<500) ng/mlFEU 1604 H VBG pH (7.31-7.41) 7.37 VBG pCO2 (41-51) mmHg 46 VBG pO2 mmHg 44 VBG HCO3 (23-28) mmol/L 27 VBG Total CO2 (24-29) mmol/L 25 VBG O2 Saturation % 75 VBG Base Excess (-2-3) mmol/L 1 VBG Lactate (<or=2.0) mmol/L 3.1 H* Sodium (136-145) mmol/L 141 Potassium (3.5-5.1) mmol/L 3.7 Chloride (98-107) mmol/L 104 Carbon Dioxide (21.0-32.0) mmol/L 27.7 Anion Gap (3-11) mmol/L 9.3 BUN (7-18) mg/dL 21 H Creatinine (0.55-1.02) mg/dL 1.0 Est GFR (CKD-EPI 2020) (mL/min/1.73m2) 57.31 Glucose (74-106) mg/dL 135 H Calcium (8.5-10.1) mg/dL 9.6 Magnesium (1.8-2.4) mg/dL 1.6 L Total Bilirubin (0.2-1.0) mg/dL 0.4 AST (15-37) U/L 14 L ALT (14-59) U/L 27 Alkaline Phosphatase (46-116) U/L 56 Troponin I (<or=51) ng/L 31 28 NT-Pro-B Natriuret Pep (<300) pg/mL 660 H Total Protein (6.4-8.2) g/dL 7.0 Albumin (3.4-5.0) g/dL 3.6 Lipase (<78) U/L 24 TSH (0.36-3.74) uIU/mL 1.57 Urine Color (Yellow) Urine Clarity (Clear) Urine pH (5-8) Ur Specific Edmond (1.005-1.025) Urine Protein (Neg-Trace) mg/dL Urine Ketones (Negative) mg/dL Urine Blood (Negative) Urine Nitrite (Negative) Urine Bilirubin (Negative) Urine Urobilinogen (Up to 0.2) mg/dL Ur Leukocyte Esterase (Negative) Urine RBC (0-2) HPF Urine WBC (0-5) HPF Ur Epithelial Cells (Negative) HPF Urine Crystals (Negative) HPF Urine Bacteria (Negative) HPF Urine Casts (Negative) LPF Urine Mucus (Negative) Ur Culture Indicated? Urine Glucose (Negative) mg/dL Add-On Test Request DONE Range/Units 10/03/24 10/03/24 05:48 06:25 WBC (4.4-10.8) 10^3/uL RBC (3.93-5.22) 10^6/uL Hgb (11.2-15.7) g/dL Hct (36.0-46.0) % MCV (80-95) fL MCH (27.0-33.0) pg MCHC (32.0-36.0) % RDW (11.7-14.6) % Plt Count (130-400) 10^3/uL MPV (8.0-11.0) fL Immature Gran % % Neutrophils % % Lymphocytes % % Monocytes % % Eosinophils % % Basophils % % Nucleated RBC % (0.0-0.3) % Absolute Neutrophils (1.2-6.7) 10^3/uL Absolute Lymphocytes (1.2-3.4) 10^3/uL Absolute Monocytes (0.1-0.8) 10^3/uL Absolute Eosinophils (0.0-0.7) 10^3/uL Absolute Basophils (0.0-0.2) 10^3/uL PT (9.1-11.1) sec INR (0.9-1.1) APTT (20.6-30.2) sec D-Dimer (<500) ng/mlFEU VBG pH (7.31-7.41) VBG pCO2 (41-51) mmHg VBG pO2 mmHg VBG HCO3 (23-28) mmol/L VBG Total CO2 (24-29) mmol/L VBG O2 Saturation % VBG Base Excess (-2-3) mmol/L VBG Lactate (<or=2.0) mmol/L 1.9 Sodium (136-145) mmol/L Potassium (3.5-5.1) mmol/L Chloride (98-107) mmol/L Carbon Dioxide (21.0-32.0) mmol/L Anion Gap (3-11) mmol/L BUN (7-18) mg/dL Creatinine (0.55-1.02) mg/dL Est GFR (CKD-EPI 2020) (mL/min/1.73m2) Glucose (74-106) mg/dL Calcium (8.5-10.1) mg/dL Magnesium (1.8-2.4) mg/dL Total Bilirubin (0.2-1.0) mg/dL AST (15-37) U/L ALT (14-59) U/L Alkaline Phosphatase (46-116) U/L Troponin I (<or=51) ng/L 45 NT-Pro-B Natriuret Pep (<300) pg/mL Total Protein (6.4-8.2) g/dL Albumin (3.4-5.0) g/dL Lipase (<78) U/L TSH (0.36-3.74) uIU/mL Urine Color (Yellow) Yellow Urine Clarity (Clear) Clear Urine pH (5-8) 5.5 Ur Specific [place] (1.005-1.025) 1.010 Urine Protein (Neg-Trace) mg/dL Negative Urine Ketones (Negative) mg/dL Negative Urine Blood (Negative) Trace-intact H Urine Nitrite (Negative) Negative Urine Bilirubin (Negative) Negative Urine Urobilinogen (Up to 0.2) mg/dL 0.2 Ur Leukocyte Esterase (Negative) Negative Urine RBC (0-2) HPF 5-10 H Urine WBC (0-5) HPF 0-2 Ur Epithelial Cells (Negative) HPF Rare Urine Crystals (Negative) HPF Negative Urine Bacteria (Negative) HPF Moderate Urine Casts (Negative) LPF 0-2 Coarse Granular Urine Mucus (Negative) Moderate Ur Culture Indicated? No Urine Glucose (Negative) mg/dL Negative Add-On Test Request Critical Care Time Critical Care Time Critical Care Time: Yes Total Critical Care Time: 48 Attestation: Due to a high probability of clinically significant, life threatening deterioration, the patient required my highest level of preparedness to intervene emergently and I personally spent this critical care time directly and personally managing the patient. This critical care time included obtaining a history; examining the patient; pulse oximetry; ordering and review of studies; arranging urgent treatment with development of a management plan; evaluation of patient's response to treatment; frequent reassessment; and, discussions with other providers. This critical care time was performed to assess and manage the high probability of imminent, life-threatening deterioration that could result in multi-organ failure. 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 episodic diverticulitis - last episode three weeks ago H/O surgical procedure (Chronic) a. arthroscopic left knee surgery b. tubal ligation c. appendectomy as a child Medical History (Updated 10/03/24 @ 07:01 by Mira Esquivel MD) Cough Aortic atherosclerosis AAA (abdominal aortic aneurysm) Pre-diabetes Fatty liver Heart murmur Lichen sclerosus Former smoker Osteoarthritis of both hips Osteoarthritis of both knees GERD (gastroesophageal reflux disease) Hiatal hernia with GERD Diverticulitis of intestine with abscess Psoriasis Hyperlipidemia Surgical History (Updated 02/26/24 @ 12:10 by Dom Leon MD) History of laryngoscopy Microlaryngoscopy with right ventricular fold cyst marsupialization, 02/26/2024 History of open sigmoidectomy Ligation of fallopian tube Arthroplasty of knee (~05/2009) right knee torn medial and lateral meniscus; Meniscectomy and chonfroplasty of medial femoral condyle. Appendectomy childhood Family History (Updated 10/24/23 @ 11:01 by Catie Neil) Mother , age 72 yrs Diabetes Heart disease Hyperlipidemia Myocardial infarction EtOH dependence Substance use disorder Diverticulitis of complications of diverticulitis Father , PNEUMONIA at age 92. Heart disease Hyperlipidemia Sister Alcohol abuse Sister Heart disease Grandfather Heart disease Grandmother Asthma Sister Neoplasm LEUKEMIA Social History (Updated 10/24/23 @ 11:09 by Catie Neil) Smoking/Tobacco Use Status: Former Tobacco Use tobacco type: cigarettes Quit Date: 02/20/11 Tobacco: How many years used: 48 Smoking risk assessment performed?: Yes Alcohol Intake: never Drug use: Never Substance use type: does not use Housing: house Do you feel safe at home: Yes Do you feel safe in your relationship?: Yes
[2024-10-03 05:09] LABS: BE (Venous) 1 mmol/L (-2-3); HCO3 (Venous) 27 mmol/L (23-28); O2 Sat (Venous) 75 %; TCO2 (Venous) 25 mmol/L (24-29); pCO2 (Venous) 46 mmHg (41-51); pO2 (Venous) 44 mmHg
[2024-10-03 06:32] LABS: Troponin I 45 ng/L (<or=51)
[2024-10-03] MEDS: Heparin in 0.45% NaCl 25,000 UNIT/250 ML BAG 8 UNIT IVINF (06:44)
[2024-10-03 06:46] LABS: Glucose Negative (Negative)
[2024-10-03 06:49] LABS: C & S Indicated? No; WBC 0-2 HPF (0-5)
--- NOTE | 2024-10-03 08:05 | W.PM.HP.N ---
Date of service: 10/03/24 Time of Service: 08:00 Assessment and Plan Assessment and plan (1) NSTEMI (non-ST elevated myocardial infarction): Status: Acute Assessment and plan: EKG sinus tachycardia, anterior ST depressions concerning for possible posterior STEMI. Posterior EKG obtained and not consistent with STEMI; would not lyse at this time. - Given 325 of ASA as well as SL nitro. After nitro BP dropped (MAP remained >65) and pt c/o nausea and some lightheadeness. Given zofran with good effect. Minimal change in chest pain after nitro. - Given 4mg IV morphine with improvement in pain though still present. - No acute CT changes - Troponin negative x3 - [place] [facility] [place]; plan for [facility] on urgent basis. Accepted under Dr. Alves and listed for later today. Advised heparin gtt in the meantime, no plavix. Will be admitted to [facility] [place] [facility] [place] - She remains hypoxemic on 4L (2) Acute hypoxemic respiratory failure: Status: Acute Assessment and plan: Not on home O2 Hypoxemic in the high 80's on arrival Improvement on 2LNC, now on 4L (3) New onset atrial flutter: Status: Acute Assessment and plan: On admission to the medical floor, she was tachycardic in the 130's EKG suggesting possible atrial flutter but p waves are visible Improvement with diltiazem 20 mg IV push Started diltiazem drip (4) Pulmonary fibrosis: Status: Acute Assessment and plan: Outpatient pulmonology September 24, disease appears to be stable Not on home O2 (5) Psoriatic arthritis: Status: Acute Assessment and plan: On methylprednisolone Plans to start embrel in the future (6) Benign essential hypertension: Status: Acute Assessment and plan: Holding home regimen (7) Angina pectoris: Status: Chronic Assessment and plan: Patient has never taken nitroglycerin which was prescribed for reasons the family does not know History of Present Illness History of Present Illness Chief Complaint: chest pain and shortness of breath Narrative: Bryanna Olson is a 79 year old woman presenting October 03 with chest pain which is worth with exertion and which radiates into her left hand. She has had pain like this which has been diagnosed as a heart attack and she has been previously treated at [facility]. She has been prescribed nitroglycerin but is not aware why; family also does not know why nor do they know what kind of heart attack she has had in the past. 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 She takes methyprednisolone 8 mg daily. PMH includes pulmonary fibrosis, psoriatic arthritis, anxiety PFSH All Active Problems (Updated 10/04/24 @ 00:02 by Proformative) Angina pectoris (Chronic) Benign essential hypertension (Acute) New onset atrial flutter (Acute) Pulmonary fibrosis (Acute) NSTEMI (non-ST elevated myocardial infarction) (Acute) Heart failure (Acute) Abnormal EKG (Acute) Chest pain (Acute) Acute hypoxemic respiratory failure (Acute) Pulmonary nodules (Acute) Interstitial lung disease (Acute) Vocal cord polyp (Acute) Hoarseness of voice (Acute) KAYLIE (obstructive sleep apnea) (Chronic) Pulmonary fibrosis, unspecified (Acute) Psoriatic arthritis (Acute) Bilateral sensorineural hearing loss (Acute) 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 episodic diverticulitis - last episode three weeks ago H/O surgical procedure (Chronic) a. arthroscopic left knee surgery b. tubal ligation c. appendectomy as a child Medical History (Updated 10/04/24 @ 00:02 by Proformative) Cough Aortic atherosclerosis AAA (abdominal aortic aneurysm) Pre-diabetes Fatty liver Heart murmur Lichen sclerosus Former smoker Osteoarthritis of both hips Osteoarthritis of both knees GERD (gastroesophageal reflux disease) Hiatal hernia with GERD Diverticulitis of intestine with abscess Psoriasis Hyperlipidemia Surgical History (Updated 10/04/24 @ 00:02 by KEITH HAMILTON) History of laryngoscopy Microlaryngoscopy with right ventricular fold cyst marsupialization, 02/26/2024 History of open sigmoidectomy Ligation of fallopian tube Arthroplasty of knee (~05/2009) right knee torn medial and lateral meniscus; Meniscectomy and chonfroplasty of medial femoral condyle. Appendectomy childhood Family History (Updated 10/24/23 @ 11:01 by Catie Neil) Mother , age 72 yrs Diabetes Heart disease Hyperlipidemia Myocardial infarction EtOH dependence Substance use disorder Diverticulitis of complications of diverticulitis Father , PNEUMONIA at age 92. Heart disease Hyperlipidemia Sister Alcohol abuse Sister Heart disease Grandfather Heart disease Grandmother Asthma Sister Neoplasm LEUKEMIA Social History (Updated 10/24/23 @ 11:09 by Catie Neil) Smoking/Tobacco Use Status: Former Tobacco Use tobacco type: cigarettes Quit Date: 02/20/11 Tobacco: How many years used: 48 Smoking risk assessment performed?: Yes Alcohol Intake: never Drug use: Never Substance use type: does not use Housing: house Do you feel safe at home: Yes Do you feel safe in your relationship?: Yes Meds Allergies and Home Medications Allergies Allergy/AdvReac Type Severity Reaction Status Date / Time ipratropium Allergy Severe Other (See Verified 10/03/24 02:47 Comment) lidocaine Allergy Severe Flushing Verified 10/03/24 02:47 of face leflunomide (From Arava) Allergy Unknown Unknown Verified 10/03/24 02:47 lisinopril Allergy Unknown cough Verified 10/03/24 02:47 doxycycline Allergy cough Verified 10/03/24 02:47 duloxetine (From Cymbalta) Allergy dry mouth Verified 10/03/24 02:47 and appetite loss Latex, Natural Rubber Allergy Skin Rash Verified 10/03/24 02:47 mirtazapine Allergy Nausea Verified 10/03/24 02:47 simvastatin Allergy myalgia Verified 10/03/24 02:47 codeine AdvReac Intermediate Nausea Verified 10/03/24 02:47 ciprofloxacin AdvReac Mild GI Upset Verified 10/03/24 02:47 methotrexate AdvReac Unknown increased Verified 10/03/24 02:47 infection Home Medications ?Medication ?Instructions ?Recorded ?Confirmed ?Type cholecalciferol (vitamin D3) 50 50 mcg PO DAILY 06/23/20 10/03/24 History mcg (2,000 unit) tablet (Vitamin D3) acetaminophen 500 mg capsule 500 mg PO Q6H PRN 08/22/22 10/03/24 History clobetasol 0.05 % topical cream 1 applic topical BID PRN 08/22/22 10/03/24 History docusate sodium 100 mg capsule 100 mg PO DAILY PRN 08/22/22 10/03/24 History (Colace) aspirin 81 mg tablet,delayed 81 mg PO DAILY 10/24/23 10/03/24 History release metoprolol tartrate 25 mg tablet 25 mg PO DAILY 10/24/23 10/03/24 History nitroglycerin 0.4 mg sublingual 0.4 mg sublingual Q5M PRN 10/24/23 10/03/24 History tablet multivitamin 1 tab PO DAILY 11/07/23 10/03/24 History oxybutynin chloride 10 mg 10 mg PO DAILY 11/07/23 10/03/24 History tablet,extended release 24 hr folic acid 1 mg tablet 1 mg PO DAILY 12/05/23 10/03/24 History methylprednisolone 8 mg tablet 8 mg PO DAILY 10/03/24 10/03/24 History omeprazole 40 mg capsule,delayed 40 mg PO DAILY 10/03/24 10/03/24 History release Exam Narrative Exam Narrative: General: This is a pleasant, elderly woman in no distress HEENT: Normocephalic, atraumatic CV: tachycardic Resp: CTAB on NC4L Abd: NTND +NBS MSK: Voluntary motion x4 Neuro: Awake, alert, no focal deficits Results Labs 10/03/24 02:49 10/03/24 02:49 Labs: Laboratory Results - last 24 hr 10/03/24 10/03/24 10/03/24 02:49 03:49 04:27 WBC 12.12 H RBC 5.13 Hgb 11.3 Hct 39.1 MCV 76 L MCH 22.0 L MCHC 28.9 L RDW 17.4 H Plt Count 293 MPV 9.9 Immature Gran % 0.4 Neutrophils % 85.2 Lymphocytes % 9.3 Monocytes % 3.3 Eosinophils % 1.6 Basophils % 0.2 Nucleated RBC % 0.0 Absolute Neutrophils 10.33 H Absolute Lymphocytes 1.13 L Absolute Monocytes 0.40 Absolute Eosinophils 0.19 Absolute Basophils 0.02 PT 9.3 INR 0.9 APTT 20.7 D-Dimer 1604 H VBG pH 7.37 VBG pCO2 46 VBG pO2 44 VBG HCO3 27 VBG Total CO2 25 VBG O2 Saturation 75 VBG Base Excess 1 VBG Lactate 3.1 H* Sodium 141 Potassium 3.7 Chloride 104 Carbon Dioxide 27.7 Anion Gap 9.3 BUN 21 H Creatinine 1.0 Est GFR (CKD-EPI 2020) 57.31 Glucose 135 H Calcium 9.6 Magnesium 1.6 L Total Bilirubin 0.4 AST 14 L ALT 27 Alkaline Phosphatase 56 Troponin I 31 28 NT-Pro-B Natriuret Pep 660 H Total Protein 7.0 Albumin 3.6 Lipase 24 TSH 1.57 Urine Color Urine Clarity Urine pH Ur Specific [place] Urine Protein Urine Ketones Urine Blood Urine Nitrite Urine Bilirubin Urine Urobilinogen Ur Leukocyte Esterase Urine RBC Urine WBC Ur Epithelial Cells Urine Crystals Urine Bacteria Urine Casts Urine Mucus Ur Culture Indicated? Urine Glucose Add-On Test Request DONE 10/03/24 10/03/24 05:48 06:25 WBC RBC Hgb Hct MCV MCH MCHC RDW Plt Count MPV Immature Gran % Neutrophils % Lymphocytes % Monocytes % Eosinophils % Basophils % Nucleated RBC % Absolute Neutrophils Absolute Lymphocytes Absolute Monocytes Absolute Eosinophils Absolute Basophils PT INR APTT D-Dimer VBG pH VBG pCO2 VBG pO2 VBG HCO3 VBG Total CO2 VBG O2 Saturation VBG Base Excess VBG Lactate 1.9 Sodium Potassium Chloride Carbon Dioxide Anion Gap BUN Creatinine Est GFR (CKD-EPI 2020) Glucose Calcium Magnesium Total Bilirubin AST ALT Alkaline Phosphatase Troponin I 45 NT-Pro-B Natriuret Pep Total Protein Albumin Lipase TSH Urine Color Yellow Urine Clarity Clear Urine pH 5.5 Ur Specific [place] 1.010 Urine Protein Negative Urine Ketones Negative Urine Blood Trace-intact H Urine Nitrite Negative Urine Bilirubin Negative Urine Urobilinogen 0.2 Ur Leukocyte Esterase Negative Urine RBC 5-10 H Urine WBC 0-2 Ur Epithelial Cells Rare Urine Crystals Negative Urine Bacteria Moderate Urine Casts 0-2 Coarse Granular Urine Mucus Moderate Ur Culture Indicated? No Urine Glucose Negative Add-On Test Request Last Vital Signs Temp 37.1 C 10/03/24 02:42 Pulse 133 H 10/03/24 07:01 Resp 21 10/03/24 07:01 BP 110/58 L 10/03/24 07:01 Pulse Ox 91 L 10/03/24 07:01 Time Spent Time spent with Patient: 40-54 minutes Time was spent: preparing to see the patient(eg.review tests), obtaining and/or reviewing separately otained hiistory, ordering medications,tests, procedures, referring, communicating with other health director of career services, indepentently interpreting results, counseling the patient and care coordination
--- NOTE | 2024-10-03 09:03 | W.PC.ACHO ---
Registration Status: REG ER Primary Language: Preferred Language: Yakut ED Information & Data Chief Complaint Chest Pain 10/03/24 04:53 Other Complaint Arrhythmia 10/03/24 02:42 Triage Note Pt reports that around 2300 10/03/24 02:42 10/02 her heart started ' going wacky' (felt like heart was beating really hard and really fast). Also having SOB, neck pain, back pain and substernal chest pressure. Similar incident ~ 1 year ago Medical / Surgical History (Last Reviewed 02/26/24 @ 07:16 by Kamla Mcneill RN) Cough Aortic atherosclerosis AAA (abdominal aortic aneurysm) Pre-diabetes Fatty liver Heart murmur Lichen sclerosus Former smoker Osteoarthritis of both hips Osteoarthritis of both knees GERD (gastroesophageal reflux disease) Hiatal hernia with GERD Diverticulitis of intestine with abscess Psoriasis Hyperlipidemia (Last Updated 02/26/24 @ 12:10 by Dom Leon MD) History of laryngoscopy History of open sigmoidectomy Ligation of fallopian tube Arthroplasty of knee (~05/2009) Appendectomy Most Recent Vital Signs Temperature 37.1 C 10/03/24 02:42 Temperature Source Tympanic 10/03/24 02:42 Pulse 133 H 10/03/24 07:01 Pulse 133 H 10/03/24 07:01 Respiratory Rate 21 10/03/24 07:01 Respiratory Effort Short of Breath 10/03/24 02:51 Respiratory Depth Normal 10/03/24 02:51 Respiratory Pattern Normal 10/03/24 02:51 Blood Pressure 110/58 L 10/03/24 07:01 Blood Pressure Mean 74 10/03/24 07:01 Blood Pressure Position Sitting 10/03/24 02:42 Pulse Oximetry 91 L 10/03/24 07:01 Oxygen Delivery Method Room Air 10/03/24 02:42 Oxygen Flow Rate 0 10/03/24 02:42 Pain Level 9 10/03/24 02:42 Allergies ipratropium Allergy (Severe, Verified 10/03/24 02:47) Other (See Comment) horse voice that wont go away. lidocaine Allergy (Severe, Verified 10/03/24 02:47) Flushing of face leflunomide (From Arava) Allergy (Unknown, Verified 10/03/24 02:47) Unknown lisinopril Allergy (Unknown, Verified 10/03/24 02:47) cough doxycycline Allergy (Verified 10/03/24 02:47) cough duloxetine (From Cymbalta) Allergy (Verified 10/03/24 02:47) dry mouth and appetite loss Latex, Natural Rubber Allergy (Verified 10/03/24 02:47) Skin Rash mirtazapine Allergy (Verified 10/03/24 02:47) Nausea simvastatin Allergy (Verified 10/03/24 02:47) myalgia codeine Adverse Reaction (Intermediate, Verified 10/03/24 02:47) Nausea Pt states it goes down and comes right back up ciprofloxacin Adverse Reaction (Mild, Verified 10/03/24 02:47) GI Upset 07/24/17 methotrexate Adverse Reaction (Unknown, Verified 10/03/24 02:47) increased infection Precautions Isolation Standard precaution 10/03/24 02:51 Active Medications Generic Name Dose Route Start Last Admin Trade Name Freq PRN Reason Stop Dose Admin Heparin Sodium/Sodium Chloride 25,000 unit in 250 mls @ 0 mls/hr 10/03/24 06:30 10/03/24 06:44 IVINF 8 mls/hr INFUSION MARIAM 8 mls/hr Protocol Administration Per Protocol Iohexol 100 ml 10/03/24 04:00 10/03/24 03:50 Omnipaque 350 Mg/Ml 100 Ml Btl IJ 11/02/24 23:59 100 ml DIRECTED MARIAM Administration Sodium Chloride 50 ml 10/03/24 04:00 10/03/24 03:51 Normal Saline - Diluent 50 Ml Vial IJ 50 ml DIRECTED MARIAM Administration IV IV Catheter Type [Left Saline Lock Antecubital] IV Catheter Gauge [Left Hand] 20 IV Catheter Gauge [Left 18 Antecubital] Diet Orders Category Date Time Status Nothing Per Oral [DIET] Nutrition 10/03/24 08:00 Active Diagnostics 10/03/24 10/03/24 10/03/24 Range/Units 06:25 05:48 04:27 WBC (4.4-10.8) 10^3/uL RBC (3.93-5.22) 10^6/uL Hgb (11.2-15.7) g/dL Hct (36.0-46.0) % MCV (80-95) fL MCH (27.0-33.0) pg MCHC (32.0-36.0) % RDW (11.7-14.6) % Plt Count (130-400) 10^3/uL MPV (8.0-11.0) fL Immature Gran % % Neutrophils % % Lymphocytes % % Monocytes % % Eosinophils % % Basophils % % Nucleated RBC % (0.0-0.3) % Absolute Neutrophils (1.2-6.7) 10^3/uL Absolute Lymphocytes (1.2-3.4) 10^3/uL Absolute Monocytes (0.1-0.8) 10^3/uL Absolute Eosinophils (0.0-0.7) 10^3/uL Absolute Basophils (0.0-0.2) 10^3/uL PT (9.1-11.1) sec INR (0.9-1.1) APTT (20.6-30.2) sec D-Dimer (<500) ng/mlFEU VBG pH 7.37 (7.31-7.41) VBG pCO2 46 (41-51) mmHg VBG pO2 44 mmHg VBG HCO3 27 (23-28) mmol/L VBG Total CO2 25 (24-29) mmol/L VBG O2 Saturation 75 % VBG Base Excess 1 (-2-3) mmol/L VBG Lactate 1.9 (<or=2.0) mmol/L Sodium (136-145) mmol/L Potassium (3.5-5.1) mmol/L Chloride (98-107) mmol/L Carbon Dioxide (21.0-32.0) mmol/L Anion Gap (3-11) mmol/L BUN (7-18) mg/dL Creatinine (0.55-1.02) mg/dL Est GFR (CKD-EPI 2020) (mL/min/1.73m2) Glucose (74-106) mg/dL Calcium (8.5-10.1) mg/dL Magnesium (1.8-2.4) mg/dL Total Bilirubin (0.2-1.0) mg/dL AST (15-37) U/L ALT (14-59) U/L Alkaline Phosphatase (46-116) U/L Troponin I 45 (<or=51) ng/L NT-Pro-B Natriuret Pep (<300) pg/mL Total Protein (6.4-8.2) g/dL Albumin (3.4-5.0) g/dL Lipase (<78) U/L TSH (0.36-3.74) uIU/mL Urine Color Yellow (Yellow) Urine Clarity Clear (Clear) Urine pH 5.5 (5-8) Ur Specific [place] 1.010 (1.005-1.025) Urine Protein Negative (Neg-Trace) mg/dL Urine Ketones Negative (Negative) mg/dL Urine Blood Trace-intact H (Negative) Urine Nitrite Negative (Negative) Urine Bilirubin Negative (Negative) Urine Urobilinogen 0.2 (Up to 0.2) mg/dL Ur Leukocyte Esterase Negative (Negative) Urine RBC 5-10 H (0-2) HPF Urine WBC 0-2 (0-5) HPF Ur Epithelial Cells Rare (Negative) HPF Urine Crystals Negative (Negative) HPF Urine Bacteria Moderate (Negative) HPF Urine Casts 0-2 Coarse Granular (Negative) LPF Urine Mucus Moderate (Negative) Ur Culture Indicated? No Urine Glucose Negative (Negative) mg/dL Add-On Test Request 10/03/24 10/03/24 Range/Units 03:49 02:49 WBC 12.12 H (4.4-10.8) 10^3/uL RBC 5.13 (3.93-5.22) 10^6/uL Hgb 11.3 (11.2-15.7) g/dL Hct 39.1 (36.0-46.0) % MCV 76 L (80-95) fL MCH 22.0 L (27.0-33.0) pg MCHC 28.9 L (32.0-36.0) % RDW 17.4 H (11.7-14.6) % Plt Count 293 (130-400) 10^3/uL MPV 9.9 (8.0-11.0) fL Immature Gran % 0.4 % Neutrophils % 85.2 % Lymphocytes % 9.3 % Monocytes % 3.3 % Eosinophils % 1.6 % Basophils % 0.2 % Nucleated RBC % 0.0 (0.0-0.3) % Absolute Neutrophils 10.33 H (1.2-6.7) 10^3/uL Absolute Lymphocytes 1.13 L (1.2-3.4) 10^3/uL Absolute Monocytes 0.40 (0.1-0.8) 10^3/uL Absolute Eosinophils 0.19 (0.0-0.7) 10^3/uL Absolute Basophils 0.02 (0.0-0.2) 10^3/uL PT 9.3 (9.1-11.1) sec INR 0.9 (0.9-1.1) APTT 20.7 (20.6-30.2) sec D-Dimer 1604 H (<500) ng/mlFEU VBG pH (7.31-7.41) VBG pCO2 (41-51) mmHg VBG pO2 mmHg VBG HCO3 (23-28) mmol/L VBG Total CO2 (24-29) mmol/L VBG O2 Saturation % VBG Base Excess (-2-3) mmol/L VBG Lactate 3.1 H* (<or=2.0) mmol/L Sodium 141 (136-145) mmol/L Potassium 3.7 (3.5-5.1) mmol/L Chloride 104 (98-107) mmol/L Carbon Dioxide 27.7 (21.0-32.0) mmol/L Anion Gap 9.3 (3-11) mmol/L BUN 21 H (7-18) mg/dL Creatinine 1.0 (0.55-1.02) mg/dL Est GFR (CKD-EPI 2020) 57.31 (mL/min/1.73m2) Glucose 135 H (74-106) mg/dL Calcium 9.6 (8.5-10.1) mg/dL Magnesium 1.6 L (1.8-2.4) mg/dL Total Bilirubin 0.4 (0.2-1.0) mg/dL AST 14 L (15-37) U/L ALT 27 (14-59) U/L Alkaline Phosphatase 56 (46-116) U/L Troponin I 28 31 (<or=51) ng/L NT-Pro-B Natriuret Pep 660 H (<300) pg/mL Total Protein 7.0 (6.4-8.2) g/dL Albumin 3.6 (3.4-5.0) g/dL Lipase 24 (<78) U/L TSH 1.57 (0.36-3.74) uIU/mL Urine Color (Yellow) Urine Clarity (Clear) Urine pH (5-8) Ur Specific [place] (1.005-1.025) Urine Protein (Neg-Trace) mg/dL Urine Ketones (Negative) mg/dL Urine Blood (Negative) Urine Nitrite (Negative) Urine Bilirubin (Negative) Urine Urobilinogen (Up to 0.2) mg/dL Ur Leukocyte Esterase (Negative) Urine RBC (0-2) HPF Urine WBC (0-5) HPF Ur Epithelial Cells (Negative) HPF Urine Crystals (Negative) HPF Urine Bacteria (Negative) HPF Urine Casts (Negative) LPF Urine Mucus (Negative) Ur Culture Indicated? Urine Glucose (Negative) mg/dL Add-On Test Request DONE Intake and Output - 24 Hour Total 10/03/24 02:38 thru 10/03/24 02:42 Weight 69.4 kg Falls Risk Assessment History of Falls No History 10/03/24 02:51 Contributing Factors Unstable 10/03/24 02:51 Ambulatory Aids Independent 10/03/24 02:51 Tubes/Lines None 10/03/24 02:51 Gait Evaluation No gait disturbance 10/03/24 02:51 Cognition No cognitive impairment 10/03/24 02:51 Fall Total Score 3 10/03/24 02:51 Level of Risk Standard/Low Risk 10/03/24 02:51 v v v v v v v v v Sending and/or Receiving Nurses: Please use comment section below to note any information pertinent to the patient hand-off not included above. Information / Comments: report received, all questions answered Report received from: report received from SYD Brito @ [id number]
[2024-10-03] MEDS: Metoprolol 12.5 MG TAB 25 MG PO (09:29)
[2024-10-03] MEDS: methylPREDNISolone 4 MG TAB 8 MG PO (09:43)
[2024-10-03] MEDS: Normal Saline Flush 10 ML SYR IVP ×2 (09:57→15:33)
[2024-10-03] MEDS: dilTIAZem 25 MG/5 ML VIAL 15 MG IVP (10:20)
--- NOTE | 2024-10-03 10:26 | DSE_ITS ---
Date of service: 10/03/24 Time of Service: 16:11 DS: Diagnosis Discharge Diagnosis (1) NSTEMI (non-ST elevated myocardial infarction): Status: Acute Asessment and Plan: - EKG sinus tachycardia, anterior ST depressions concerning for possible posterior STEMI. Posterior EKG obtained and not consistent with STEMI; would not lyse at this time. - Given 325 of ASA as well as SL nitro. After nitro BP dropped (MAP remained >65) and pt c/o nausea and some lightheadeness. Given zofran with good effect. Minimal change in chest pain after nitro. - Given 4mg IV morphine with improvement in pain though still present. - No acute CT changes - Troponin negative x3 - Discussed with [facility] cardiology; plan for [facility] on urgent basis. Accepted under Dr. Alves and listed for later today. Advised heparin gtt in the meantime, no plavix. Will be admitted to [facility] pending [facility] bed. - She remains hypoxemic on 4L (2) Acute hypoxemic respiratory failure: Status: Acute Asessment and Plan: Not on home O2 Hypoxemic in the high 80's on arrival Improvement on 2LNC, now on 4L (3) New onset atrial flutter: Status: Acute Asessment and Plan: On admission to the medical floor, she was tachycardic in the 130's EKG suggesting possible atrial flutter but p waves are visible Improvement with diltiazem 20 mg IV push Started diltiazem drip (4) Pulmonary fibrosis: Status: Acute Asessment and Plan: Outpatient pulmonology September 24, disease appears to be stable Not on home O2 (5) Psoriatic arthritis: Status: Acute Asessment and Plan: On methylprednisolone Plans to start embrel in the future (6) Benign essential hypertension: Status: Acute Asessment and Plan: Holding home regimen (7) Angina pectoris: Status: Chronic Asessment and Plan: Patient has never taken nitroglycerin which was prescribed for reasons the family does not know Discharge Plan Disposition Patient Disposition: Transfer-Acute Inpatient Care Specific Acute In Facility: [facility] Condition: Critical Discharge Details Reason For Visit: NSTEMI Admit Date/Time: 10/03/24 07:59 Admit Provider: Jeff Renae Attending Provider: Jeff Renae Primary Care Provider: Nara Contreras [facility] Course Hospital Course: Bryanna Olson is a 79 year old woman presenting October 03 with chest pain and shortness of breath. She was found to be mildly hypoxemic 89%, tachycardic in the 130's. EKG and posterior EKG not suggestive of STEMI. Troponin initially 28, fluctuating into the 30's, not trending down. Chest pain not relieved with nitroglycerin, and there was concern for MAP falling to 61; MAP came up above 65 and hypotension did not recur. [facility] was consulted and she was accepted for cardiology care later today by Dr Alves. She received her home dose of metoprolol tartrate 25 PO at 0900 but her rate did not improve and she was given diltiazem 20 mg IV bolus with good effect. At time of transfer to [facility] she is on 4L O2 via NC, on none at baseline, and she remains on a heparin drip and diltiazem drip. Home Meds and New Rx's Prescriptions: Continued oxybutynin chloride 10 mg tablet extended release 24hr 10 mg PO DAILY multivitamin Tablet 1 tab PO DAILY folic acid 1 mg tablet 1 mg PO DAILY acetaminophen 500 mg capsule 500 mg PO Q6H PRN clobetasol 0.05 % cream 1 applic topical BID PRN docusate sodium [Colace] 100 mg capsule 100 mg PO DAILY PRN aspirin 81 mg tablet,delayed release (DR/EC) 81 mg PO DAILY metoprolol tartrate 25 mg tablet 25 mg PO DAILY nitroglycerin 0.4 mg tablet, sublingual 0.4 mg sublingual Q5M PRN Rx Instructions: do not exceed 3 doses per episode methylprednisolone 8 mg tablet 8 mg PO DAILY Patient Comments: TAKE ONE TABLET BY MOUTH EVERY DAY WITH FOOD OR MILK omeprazole 40 mg capsule,delayed release(DR/EC) 40 mg PO DAILY Patient Comments: TAKE ONE CAPSULE BY MOUTH EVERY DAY 30 MIN BEFORE MORNING MEAL cholecalciferol (vitamin D3) [Vitamin D3] 50 mcg (2,000 unit) Tablet 50 mcg PO DAILY Discontinued rosuvastatin 20 mg tablet 20 mg PO DAILY Patient Comments: TAKE ONE TABLET BY MOUTH EVERY EVENING nitrofurantoin monohyd/m-cryst 100 mg capsule 100 mg PO Q12H Patient Comments: TAKE ONE CAPSULE BY MOUTH EVERY 12 HOURS FOR 7 DAYS Discharge Instructions Activity:: bed rest Equipment/Supplies:: No Equipment Needed Diet:: NPO Discharge Orders Discharge Orders: Discharge Order (Routine); Ordered 10/03/24 Ordered By: Jeff Renae DS: Summary Time Spent with Patient providing and/or coordinating discharge services: Greater than 30 minutes Status at Discharge Functional status at discharge: independent ambulation Overall status at discharge: patient is back to baseline Mental Status: mental status grossly normal Speech and Movement: speech and movement normal Mood: congruent mood Affect: normal affect Exam Psych Mental Status: mental status grossly normal Speech and Movement: speech and movement normal Mood: congruent mood Affect: normal affect DS: Data Vitals/I&O Vitals and I&O: Vital Signs Temperature 37.5 C 10/03/24 09:17 Temperature Source Temporal Artery Scan 10/03/24 09:17 Pulse 104 H 10/03/24 10:25 Pulse 133 H 10/03/24 07:01 Respiratory Rate 18 10/03/24 10:18 Respiratory Effort Normal, Non-Labored 10/03/24 09:31 Respiratory Depth Normal 10/03/24 09:31 Respiratory Pattern Normal 10/03/24 09:31 Blood Pressure 100/63 10/03/24 10:25 Blood Pressure Mean 78 10/03/24 10:18 Blood Pressure Position Sitting 10/03/24 02:42 Pulse Oximetry 94 10/03/24 10:18 Oxygen Delivery Method Nasal Cannula 10/03/24 10:18 Oxygen Flow Rate 4 10/03/24 10:18 Pain Level 8 10/03/24 09:57 Comment RN present 10/03/24 09:17 Intake & Output 10/02/24 10/02/24 10/03/24 11:59 23:59 11:59 Weight 69.4 kg Data Completed and Pending Labs on day of discharge: Labs from last 24 hours 10/03/24 10/03/24 10/03/24 12:44 06:25 05:48 WBC RBC Hgb Hct MCV MCH MCHC RDW Plt Count MPV Immature Gran % Neutrophils % Lymphocytes % Monocytes % Eosinophils % Basophils % Nucleated RBC % Absolute Neutrophils Absolute Lymphocytes Absolute Monocytes Absolute Eosinophils Absolute Basophils PT INR APTT Pending D-Dimer VBG pH VBG pCO2 VBG pO2 VBG HCO3 VBG Total CO2 VBG O2 Saturation VBG Base Excess VBG Lactate 1.9 Sodium Potassium Chloride Carbon Dioxide Anion Gap BUN Creatinine Est GFR (CKD-EPI 2020) Glucose Calcium Magnesium Total Bilirubin AST ALT Alkaline Phosphatase Troponin I 45 NT-Pro-B Natriuret Pep Total Protein Albumin Lipase TSH Urine Color Yellow Urine Clarity Clear Urine pH 5.5 Ur Specific [place] 1.010 Urine Protein Negative Urine Ketones Negative Urine Blood Trace-intact H Urine Nitrite Negative Urine Bilirubin Negative Urine Urobilinogen 0.2 Ur Leukocyte Esterase Negative Urine RBC 5-10 H Urine WBC 0-2 Ur Epithelial Cells Rare Urine Crystals Negative Urine Bacteria Moderate Urine Casts 0-2 Coarse Granular Urine Mucus Moderate Ur Culture Indicated? No Urine Glucose Negative Add-On Test Request 10/03/24 10/03/24 10/03/24 04:27 03:49 02:49 WBC 12.12 H RBC 5.13 Hgb 11.3 Hct 39.1 MCV 76 L MCH 22.0 L MCHC 28.9 L RDW 17.4 H Plt Count 293 MPV 9.9 Immature Gran % 0.4 Neutrophils % 85.2 Lymphocytes % 9.3 Monocytes % 3.3 Eosinophils % 1.6 Basophils % 0.2 Nucleated RBC % 0.0 Absolute Neutrophils 10.33 H Absolute Lymphocytes 1.13 L Absolute Monocytes 0.40 Absolute Eosinophils 0.19 Absolute Basophils 0.02 PT 9.3 INR 0.9 APTT 20.7 D-Dimer 1604 H VBG pH 7.37 VBG pCO2 46 VBG pO2 44 VBG HCO3 27 VBG Total CO2 25 VBG O2 Saturation 75 VBG Base Excess 1 VBG Lactate 3.1 H* Sodium 141 Potassium 3.7 Chloride 104 Carbon Dioxide 27.7 Anion Gap 9.3 BUN 21 H Creatinine 1.0 Est GFR (CKD-EPI 2020) 57.31 Glucose 135 H Calcium 9.6 Magnesium 1.6 L Total Bilirubin 0.4 AST 14 L ALT 27 Alkaline Phosphatase 56 Troponin I 28 31 NT-Pro-B Natriuret Pep 660 H Total Protein 7.0 Albumin 3.6 Lipase 24 TSH 1.57 Urine Color Urine Clarity Urine pH Ur Specific [place] Urine Protein Urine Ketones Urine Blood Urine Nitrite Urine Bilirubin Urine Urobilinogen Ur Leukocyte Esterase Urine RBC Urine WBC Ur Epithelial Cells Urine Crystals Urine Bacteria Urine Casts Urine Mucus Ur Culture Indicated? Urine Glucose Add-On Test Request DONE PFSH All Active Problems (Updated 02/26/24 @ 12:10 by Dom Leon MD) Angina pectoris (Chronic) Benign essential hypertension (Acute) New onset atrial flutter (Acute) Pulmonary fibrosis (Acute) NSTEMI (non-ST elevated myocardial infarction) (Acute) Heart failure (Acute) Abnormal EKG (Acute) Chest pain (Acute) Acute hypoxemic respiratory failure (Acute) Pulmonary nodules (Acute) Interstitial lung disease (Acute) Vocal cord polyp (Acute) Hoarseness of voice (Acute) KAYLIE (obstructive sleep apnea) (Chronic) Pulmonary fibrosis, unspecified (Acute) Psoriatic arthritis (Acute) Bilateral sensorineural hearing loss (Acute) 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 episodic diverticulitis - last episode three weeks ago H/O surgical procedure (Chronic) a. arthroscopic left knee surgery b. tubal ligation c. appendectomy as a child Medical History (Updated 10/03/24 @ 16:12 by Jeff Renae MD) Cough Aortic atherosclerosis AAA (abdominal aortic aneurysm) Pre-diabetes Fatty liver Heart murmur Lichen sclerosus Former smoker Osteoarthritis of both hips Osteoarthritis of both knees GERD (gastroesophageal reflux disease) Hiatal hernia with GERD Diverticulitis of intestine with abscess Psoriasis Hyperlipidemia Surgical History (Updated 02/26/24 @ 12:10 by Dom Leon MD) History of laryngoscopy Microlaryngoscopy with right ventricular fold cyst marsupialization, 02/26/2024 History of open sigmoidectomy Ligation of fallopian tube Arthroplasty of knee (~05/2009) right knee torn medial and lateral meniscus; Meniscectomy and chonfroplasty of medial femoral condyle. Appendectomy childhood Family History (Updated 10/24/23 @ 11:01 by Catie Neil) Mother , age 72 yrs Diabetes Heart disease Hyperlipidemia Myocardial infarction EtOH dependence Substance use disorder Diverticulitis of complications of diverticulitis Father , PNEUMONIA at age 92. Heart disease Hyperlipidemia Sister Alcohol abuse Sister Heart disease Grandfather Heart disease Grandmother Asthma Sister Neoplasm LEUKEMIA Social History (Updated 10/24/23 @ 11:09 by Catie Neil) Smoking/Tobacco Use Status: Former Tobacco Use tobacco type: cigarettes Quit Date: 02/20/11 Tobacco: How many years used: 48 Smoking risk assessment performed?: Yes Alcohol Intake: never Drug use: Never Substance use type: does not use Housing: house Do you feel safe at home: Yes Do you feel safe in your relationship?: Yes Time Spent with Patient Time Spent with Patient: <45 minutes Time was spent: preparing to see the patient(eg.review tests), obtaining and/or reviewing separately otained hiistory, ordering medications,tests, procedures, referring, communicating with other health patient care assistant, indepentently interpreting results, counseling the patient and care coordination
--- NOTE | 2024-10-03 11:10 | NUR.NOTE ---
Pt transferred from [facility] to ICU room 220 at 1105. Nursing Note:
[2024-10-03] MEDS: dilTIAZem 125 MG in Normal Saline 100 ML IV (11:22)
--- NOTE | 2024-10-03 11:51 | W.PC.ACHO ---
Registration Status: ADM ЕКАТЕРИНА Primary Language: Preferred Language: Occitan ED Information & Data Chief Complaint Chest Pain 10/03/24 04:53 Other Complaint Arrhythmia 10/03/24 02:42 Triage Note Pt reports that around 2300 10/03/24 02:42 10/02 her heart started ' going wacky' (felt like heart was beating really hard and really fast). Also having SOB, neck pain, back pain and substernal chest pressure. Similar incident ~ 1 year ago Medical / Surgical History (Last Reviewed 02/26/24 @ 07:16 by Kamla Mcneill RN) Cough Aortic atherosclerosis AAA (abdominal aortic aneurysm) Pre-diabetes Fatty liver Heart murmur Lichen sclerosus Former smoker Osteoarthritis of both hips Osteoarthritis of both knees GERD (gastroesophageal reflux disease) Hiatal hernia with GERD Diverticulitis of intestine with abscess Psoriasis Hyperlipidemia (Last Updated 02/26/24 @ 12:10 by Dom Leon MD) History of laryngoscopy History of open sigmoidectomy Ligation of fallopian tube Arthroplasty of knee (~05/2009) Appendectomy Most Recent Vital Signs Temperature 37.5 C 10/03/24 09:17 Temperature Source Temporal Artery Scan 10/03/24 09:17 Pulse 113 H 10/03/24 11:31 Pulse 118 H 10/03/24 11:31 Respiratory Rate 18 10/03/24 11:31 Respiratory Effort Normal, Non-Labored 10/03/24 09:31 Respiratory Depth Normal 10/03/24 09:31 Respiratory Pattern Normal 10/03/24 09:31 Blood Pressure 118/84 10/03/24 11:31 Blood Pressure Mean 92 10/03/24 11:31 Blood Pressure Position Sitting 10/03/24 02:42 Pulse Oximetry 94 10/03/24 10:28 Oxygen Delivery Method Nasal Cannula 10/03/24 10:28 Oxygen Flow Rate 4 10/03/24 10:28 Pain Level 8 10/03/24 09:57 Comment RN present 10/03/24 09:17 Allergies ipratropium Allergy (Severe, Verified 10/03/24 02:47) Other (See Comment) horse voice that wont go away. lidocaine Allergy (Severe, Verified 10/03/24 02:47) Flushing of face leflunomide (From Arava) Allergy (Unknown, Verified 10/03/24 02:47) Unknown lisinopril Allergy (Unknown, Verified 10/03/24 02:47) cough doxycycline Allergy (Verified 10/03/24 02:47) cough duloxetine (From Cymbalta) Allergy (Verified 10/03/24 02:47) dry mouth and appetite loss Latex, Natural Rubber Allergy (Verified 10/03/24 02:47) Skin Rash mirtazapine Allergy (Verified 10/03/24 02:47) Nausea simvastatin Allergy (Verified 10/03/24 02:47) myalgia codeine Adverse Reaction (Intermediate, Verified 10/03/24 02:47) Nausea Pt states it goes down and comes right back up ciprofloxacin Adverse Reaction (Mild, Verified 10/03/24 02:47) GI Upset 07/24/17 methotrexate Adverse Reaction (Unknown, Verified 10/03/24 02:47) increased infection Precautions Isolation Standard precaution 10/03/24 02:51 Active Medications Generic Name Dose Route Start Last Admin Trade Name Freq PRN Reason Stop Dose Admin Heparin Sodium/Sodium Chloride 25,000 unit in 250 mls @ 0 mls/hr 10/03/24 06:30 10/03/24 06:44 IVINF 8 mls/hr INFUSION MARIAM 8 mls/hr Protocol Administration Per Protocol Diltiazem HCl 125 mg/ Sodium 125 mls @ 5 mls/hr 10/03/24 11:00 10/03/24 11:22 Chloride IV 5 mg/hr INFUSION MARIAM 5 mls/hr Protocol Administration 5 MG/HR Methylprednisolone 8 mg 10/03/24 08:30 10/03/24 09:43 Methylprednisolone 4 Mg Tab PO 8 mg DAILY MARIAM Administration Metoprolol Tartrate 25 mg 10/03/24 08:30 10/03/24 09:29 Metoprolol 12.5 Mg Tab PO 25 mg DAILY MARIAM Administration Sodium Chloride 0 ml 10/03/24 03:49 10/03/24 09:57 Normal Saline Flush 10 Ml Syr IVP 10 ml PRN PRN Administration IV IV Catheter Type [Left Hand] Peripheral IV IV Catheter Type [Left Saline Lock Antecubital] IV Catheter Gauge [Left Hand] 20 IV Catheter Gauge [Left 18 Antecubital] Diet Orders Category Date Time Status Nothing Per Oral [DIET] Nutrition 10/03/24 08:00 Active Diagnostics 10/03/24 10/03/24 10/03/24 Range/Units 12:44 06:25 05:48 WBC (4.4-10.8) 10^3/uL RBC (3.93-5.22) 10^6/uL Hgb (11.2-15.7) g/dL Hct (36.0-46.0) % MCV (80-95) fL MCH (27.0-33.0) pg MCHC (32.0-36.0) % RDW (11.7-14.6) % Plt Count (130-400) 10^3/uL MPV (8.0-11.0) fL Immature Gran % % Neutrophils % % Lymphocytes % % Monocytes % % Eosinophils % % Basophils % % Nucleated RBC % (0.0-0.3) % Absolute Neutrophils (1.2-6.7) 10^3/uL Absolute Lymphocytes (1.2-3.4) 10^3/uL Absolute Monocytes (0.1-0.8) 10^3/uL Absolute Eosinophils (0.0-0.7) 10^3/uL Absolute Basophils (0.0-0.2) 10^3/uL PT (9.1-11.1) sec INR (0.9-1.1) APTT Pending (20.6-30.2) sec D-Dimer (<500) ng/mlFEU VBG pH (7.31-7.41) VBG pCO2 (41-51) mmHg VBG pO2 mmHg VBG HCO3 (23-28) mmol/L VBG Total CO2 (24-29) mmol/L VBG O2 Saturation % VBG Base Excess (-2-3) mmol/L VBG Lactate 1.9 (<or=2.0) mmol/L Sodium (136-145) mmol/L Potassium (3.5-5.1) mmol/L Chloride (98-107) mmol/L Carbon Dioxide (21.0-32.0) mmol/L Anion Gap (3-11) mmol/L BUN (7-18) mg/dL Creatinine (0.55-1.02) mg/dL Est GFR (CKD-EPI 2020) (mL/min/1.73m2) Glucose (74-106) mg/dL Calcium (8.5-10.1) mg/dL Magnesium (1.8-2.4) mg/dL Total Bilirubin (0.2-1.0) mg/dL AST (15-37) U/L ALT (14-59) U/L Alkaline Phosphatase (46-116) U/L Troponin I 45 (<or=51) ng/L NT-Pro-B Natriuret Pep (<300) pg/mL Total Protein (6.4-8.2) g/dL Albumin (3.4-5.0) g/dL Lipase (<78) U/L TSH (0.36-3.74) uIU/mL Urine Color Yellow (Yellow) Urine Clarity Clear (Clear) Urine pH 5.5 (5-8) Ur Specific [place] 1.010 (1.005-1.025) Urine Protein Negative (Neg-Trace) mg/dL Urine Ketones Negative (Negative) mg/dL Urine Blood Trace-intact H (Negative) Urine Nitrite Negative (Negative) Urine Bilirubin Negative (Negative) Urine Urobilinogen 0.2 (Up to 0.2) mg/dL Ur Leukocyte Esterase Negative (Negative) Urine RBC 5-10 H (0-2) HPF Urine WBC 0-2 (0-5) HPF Ur Epithelial Cells Rare (Negative) HPF Urine Crystals Negative (Negative) HPF Urine Bacteria Moderate (Negative) HPF Urine Casts 0-2 Coarse Granular (Negative) LPF Urine Mucus Moderate (Negative) Ur Culture Indicated? No Urine Glucose Negative (Negative) mg/dL Add-On Test Request 10/03/24 10/03/24 10/03/24 Range/Units 04:27 03:49 02:49 WBC 12.12 H (4.4-10.8) 10^3/uL RBC 5.13 (3.93-5.22) 10^6/uL Hgb 11.3 (11.2-15.7) g/dL Hct 39.1 (36.0-46.0) % MCV 76 L (80-95) fL MCH 22.0 L (27.0-33.0) pg MCHC 28.9 L (32.0-36.0) % RDW 17.4 H (11.7-14.6) % Plt Count 293 (130-400) 10^3/uL MPV 9.9 (8.0-11.0) fL Immature Gran % 0.4 % Neutrophils % 85.2 % Lymphocytes % 9.3 % Monocytes % 3.3 % Eosinophils % 1.6 % Basophils % 0.2 % Nucleated RBC % 0.0 (0.0-0.3) % Absolute Neutrophils 10.33 H (1.2-6.7) 10^3/uL Absolute Lymphocytes 1.13 L (1.2-3.4) 10^3/uL Absolute Monocytes 0.40 (0.1-0.8) 10^3/uL Absolute Eosinophils 0.19 (0.0-0.7) 10^3/uL Absolute Basophils 0.02 (0.0-0.2) 10^3/uL PT 9.3 (9.1-11.1) sec INR 0.9 (0.9-1.1) APTT 20.7 (20.6-30.2) sec D-Dimer 1604 H (<500) ng/mlFEU VBG pH 7.37 (7.31-7.41) VBG pCO2 46 (41-51) mmHg VBG pO2 44 mmHg VBG HCO3 27 (23-28) mmol/L VBG Total CO2 25 (24-29) mmol/L VBG O2 Saturation 75 % VBG Base Excess 1 (-2-3) mmol/L VBG Lactate 3.1 H* (<or=2.0) mmol/L Sodium 141 (136-145) mmol/L Potassium 3.7 (3.5-5.1) mmol/L Chloride 104 (98-107) mmol/L Carbon Dioxide 27.7 (21.0-32.0) mmol/L Anion Gap 9.3 (3-11) mmol/L BUN 21 H (7-18) mg/dL Creatinine 1.0 (0.55-1.02) mg/dL Est GFR (CKD-EPI 2020) 57.31 (mL/min/1.73m2) Glucose 135 H (74-106) mg/dL Calcium 9.6 (8.5-10.1) mg/dL Magnesium 1.6 L (1.8-2.4) mg/dL Total Bilirubin 0.4 (0.2-1.0) mg/dL AST 14 L (15-37) U/L ALT 27 (14-59) U/L Alkaline Phosphatase 56 (46-116) U/L Troponin I 28 31 (<or=51) ng/L NT-Pro-B Natriuret Pep 660 H (<300) pg/mL Total Protein 7.0 (6.4-8.2) g/dL Albumin 3.6 (3.4-5.0) g/dL Lipase 24 (<78) U/L TSH 1.57 (0.36-3.74) uIU/mL Urine Color (Yellow) Urine Clarity (Clear) Urine pH (5-8) Ur Specific [place] (1.005-1.025) Urine Protein (Neg-Trace) mg/dL Urine Ketones (Negative) mg/dL Urine Blood (Negative) Urine Nitrite (Negative) Urine Bilirubin (Negative) Urine Urobilinogen (Up to 0.2) mg/dL Ur Leukocyte Esterase (Negative) Urine RBC (0-2) HPF Urine WBC (0-5) HPF Ur Epithelial Cells (Negative) HPF Urine Crystals (Negative) HPF Urine Bacteria (Negative) HPF Urine Casts (Negative) LPF Urine Mucus (Negative) Ur Culture Indicated? Urine Glucose (Negative) mg/dL Add-On Test Request DONE Intake and Output - 24 Hour Total 10/03/24 02:38 thru 10/03/24 02:42 Weight 69.4 kg Falls Risk Assessment History of Falls No History 10/03/24 09:31 Contributing Factors Impairments 10/03/24 09:31 Ambulatory Aids Independent 10/03/24 09:31 Tubes/Lines W/no contributing factors 10/03/24 09:31 Gait Evaluation W/no contributing factors 10/03/24 09:31 Cognition No cognitive impairment 10/03/24 09:31 Fall Total Score 23 10/03/24 09:31 Level of Risk Standard/Low Risk 10/03/24 09:31 Notes 10/03/24 11:10 Nursing Notes by John Hatfield Pt transferred from [facility] to ICU room 220 at 1105. Nursing Note: Initialized on 10/03/24 11:10 - END OF NOTE v v v v v v v v v Sending and/or Receiving Nurses: Please use comment section below to note any information pertinent to the patient hand-off not included above. Information / Comments: Report received from: John Hatfield RN 10/03 1099
--- NOTE | 2024-10-03 12:21 | PHA.REVIEW2 ---
Pharmacy Admission Review Admission Clinical Review Admission Pharmacy Review: ipratropium Allergy (Severe, Verified 10/03/24 02:47) Other (See Comment) lidocaine Allergy (Severe, Verified 10/03/24 02:47) Flushing of face leflunomide (From Arava) Allergy (Unknown, Verified 10/03/24 02:47) Unknown lisinopril Allergy (Unknown, Verified 10/03/24 02:47) cough doxycycline Allergy (Verified 10/03/24 02:47) cough duloxetine (From Cymbalta) Allergy (Verified 10/03/24 02:47) dry mouth and appetite loss Latex, Natural Rubber Allergy (Verified 10/03/24 02:47) Skin Rash mirtazapine Allergy (Verified 10/03/24 02:47) Nausea simvastatin Allergy (Verified 10/03/24 02:47) myalgia codeine Adverse Reaction (Intermediate, Verified 10/03/24 02:47) Nausea ciprofloxacin Adverse Reaction (Mild, Verified 10/03/24 02:47) GI Upset methotrexate Adverse Reaction (Unknown, Verified 10/03/24 02:47) increased infection Resuscitation Status Full Code Height 5 ft 2 in Weight 69.2 kg Comments Comments/Follow Ups: [facility] [place] transfer pending bed availability Pharmacy Admission Review Renal Dosing Renal Dosing: BUN 21 mg/dL (7-18) H 10/03/24 02:49 Creatinine 1.0 mg/dL (0.55-1.02) 10/03/24 02:49 Medications needing adjustments: Reviewed (CrCl 41.57 mL/min) List of meds needing interventions: Current medications are okay Anticoagulation Anticoagulation: Hgb 11.3 g/dL (11.2-15.7) 10/03/24 02:49 Hct 39.1 % (36.0-46.0) 10/03/24 02:49 Plt Count 293 10^3/uL (130-400) 10/03/24 02:49 INR 0.9 (0.9-1.1) 10/03/24 02:49 Creatinine 1.0 mg/dL (0.55-1.02) 10/03/24 02:49 Therapeutic Anticoagulation: Reviewed (NSTEMI) Medications: Heparin (@ 8 ml/hr) Relevant Labs Relevant Labs: Sodium 141 mmol/L (136-145) 10/03/24 02:49 Potassium 3.7 mmol/L (3.5-5.1) 10/03/24 02:49 Chloride 104 mmol/L (98-107) 10/03/24 02:49 Magnesium 1.6 mg/dL (1.8-2.4) L 10/03/24 02:49 Electrolytes, C-Reactive P, ESR: Reviewed (received magnesium oxide 400mg PO now one this AM) Cardiac Review Cardiac Review: Troponin I 45 ng/L (<or=51) 10/03/24 05:48 NT-Pro-B Natriuret Pep 660 pg/mL (<300) H 10/03/24 02:49 Blood Pressure : Heart Rate 90/72 : 115 1201 Blood Pressure : Heart Rate 115/67 : 110 1146 Blood Pressure : Heart Rate 118/84 : 113 1131 Blood Pressure : Heart Rate 128/71 : 105 1116 Blood Pressure : Heart Rate 121/71 : 107 1113 Blood Pressure : Heart Rate 104/51 : 105 1028 Blood Pressure : Heart Rate 112/59 : 118 1027 Blood Pressure : Heart Rate 100/63 : 108 1026 Blood Pressure : Heart Rate 100/63 : 104 1025 Blood Pressure : Heart Rate 104/66 : 140 1020 Blood Pressure : Heart Rate 104/66 : 141 1018 Blood Pressure : Heart Rate 123/69 : 143 0917 Blood Pressure : Heart Rate 125/75 : 133 0901 Blood Pressure : Heart Rate 113/81 : 131 0845 Blood Pressure : Heart Rate 130/70 : 127 0837 Blood Pressure : Heart Rate 87/65 : 136 0830 List meds needing interventions: Has order for metoprolol 25mg daily. Also on diltiazem drip @ 5mg/hr QTc Review QTc: Reviewed (462 from 10/03/24) IV to PO Switch IV Medications: Reviewed (heparin, diltiazem and ondansetron) Home Meds Home Med List reviewed: Intervened Relevent Home Meds Not ordered & why?: aspirin, Vitamin D3, clobetasol cream (PRN), docusate (PRN), folic acid, multivitamin, nitroglycerin (PRN), omeprazole (spoke with provider - will order if patient is not transferred to [facility] today), and oxybutynin (spoke with provider - holding due to HR and BP at this time) Current Meds Current Medication Order Review: Intervened Comments: Added IV access order Comments Comments/Follow Ups: [facility] [place] transfer pending bed availability
[2024-10-03 13:00] LABS: PTT Activated 36.6 sec (20.6-30.2)
[2024-10-03] MEDS: MORPHine 2 MG/ML SYR IVP ×2 (15:29→16:25)
[2024-10-03 16:30] LABS: Troponin I 80 ng/L (<or=51)
== END 2024-10-03 16:36 | disposition short-term general hospital (02) ==
LOC: ER 07:01 → MS 09:12 → ICU 11:03
PROVIDERS: Admitting Provider Family Medicine; Emergency Provider Student in an Organized Health Care Education/Training Program; PCP Family Medicine; Responsible Provider Family Medicine; Visit Provider Family Medicine
DX: I21.4 Non-ST elevation (NSTEMI) myocardial infarction (principal); J96.01 Acute respiratory failure with hypoxia; I48.92 Unspecified atrial flutter; J84.10 Pulmonary fibrosis, unspecified; L40.50 Arthropathic psoriasis, unspecified; I10 Essential (primary) hypertension; I71.43 Infrarenal abdominal aortic aneurysm, without rupture; I70.0 Atherosclerosis of aorta; I70.203 Unspecified atherosclerosis of native arteries of extremities, bilateral legs; Z79.52 Long term (current) use of systemic steroids; G47.33 Obstructive sleep apnea (adult) (pediatric); R49.0 Dysphonia; R91.8 Other nonspecific abnormal finding of lung field; E55.9 Vitamin D deficiency, unspecified; K57.30 Diverticulosis of large intestine without perforation or abscess without bleeding; R73.03 Prediabetes; K21.9 Gastro-esophageal reflux disease without esophagitis; E78.5 Hyperlipidemia, unspecified; K44.9 Diaphragmatic hernia without obstruction or gangrene; K76.0 Fatty (change of) liver, not elsewhere classified; Z87.891 Personal history of nicotine dependence; I20.9 Angina pectoris, unspecified
CPT/HCPCS: 00123; 36415; 71275; 80053; 82805; 83690; 93005; 96365; 96366; 96375; 96376; 99291; 74174; 81003; 81015; 83605; 83735; 83880; 84443; 84484; 85025; 85379; 85610; 85730; 93010; 99222; 99235; G0378; J1644; J2270; J2405; J3490; J7509

== ENCOUNTER 2024-10-25 05:29 | Outpatient (CLI) | payer MEDICARE, SELFPAY ==
--- NOTE | 2024-10-25 14:48 | DI.RAD_ITS ---
Exam(s) XR ELBOW LT COMPLETE EXAM: XR ELBOW LT COMPLETE CLINICAL HISTORY: PSORIATIC ARTHRITIS L40.50 BILAT ELBOW PAIN EVAL FOR EROSIONS PERIOSTITIS. TECHNIQUE: 2D digital imaging was performed. Three views. COMPARISON: CR XR ELBOW RT COMPLETE from 10/25/2024 FINDINGS: BONES: No acute fracture is present. No bony destructive lesion is seen. Spurring versus ligamentous or tendinous calcification at the epicondyles. JOINTS: The elbow is normally aligned. No joint effusion is seen. SOFT TISSUE: Mild swelling over the olecranon. IMPRESSION: Soft tissue swelling over the olecranon. No bony erosions. DATA REPOSITORY: RADIATION DOSE DELIVERED:
--- NOTE | 2024-10-25 14:48 | DI.RAD_ITS ---
Exam(s) XR HAND RT COMPLETE XR HAND LT COMPLETE EXAM: XR HAND RT COMPLETE and XR hand LT complete CLINICAL HISTORY: PSORIATIC ARTHRITIS L40.50 BILAT HAND PAIN EVAL FOR EROSIONS PERIOSTITIS. TECHNIQUE: 2D digital imaging was performed of the left and right hand. Six images were obtained. AP, lateral and oblique views were obtained. COMPARISON: There are no priors for comparison. FINDINGS: BONES: No acute fracture is present. No bony destructive lesion is seen. JOINTS: In the right hand there is joint space narrowing of the interphalangeal joints throughout. Bony productive changes are seen predominantly at the DIP joints, most marked in the 3rd and 5th fingers. There rosea is seen at the DIP joint of the middle finger. There is also soft tissue swelling of the index and middle fingers. The carpus is well maintained. In the left hand there is joint space narrowing seen at the interphalangeal joints with bony productive changes also noted. The findings are most marked at the DIP joints of the index and little fingers. There is an erosion seen at the DIP joint of the index finger. The metacarpophalangeal joints are well maintained as is the carpal joints. There is also erosion seen at the head of the proximal phalanx of the middle finger. SOFT TISSUE: Normal. IMPRESSION: Arthrosis of the hands as described above. Findings would be consistent with an inflammatory arthritis, such as psoriatic arthritis. DATA REPOSITORY: RADIATION DOSE DELIVERED:
--- NOTE | 2024-10-25 14:48 | DI.RAD_ITS ---
Exam(s) XR ELBOW RT COMPLETE EXAM: XR ELBOW RT COMPLETE CLINICAL HISTORY: PSORIATIC ARTHRITIS L40.50 BILAT ELBOW PAIN EVAL FOR EROSIONS PERIOSTITIS. TECHNIQUE: 2D digital imaging was performed. Three views. COMPARISON: No exams were available for comparison FINDINGS: BONES: No acute fracture is present. No bony destructive lesion is seen. There is mild spurring at the medial epicondyle. JOINTS: The elbow is normally aligned. No joint effusion is seen. SOFT TISSUE: Normal none mild posterior soft tissue swelling over the olecranon. IMPRESSION: No findings to suggest psoriatic arthritis. DATA REPOSITORY: RADIATION DOSE DELIVERED:
== END 2024-10-25 05:49 ==
LOC: DI 05:29
PROVIDERS: PCP Family Medicine; Visit Provider Nurse Practitioner Acute Care
DX: L40.50 Arthropathic psoriasis, unspecified (principal)
CPT/HCPCS: 73080; 73130

== ENCOUNTER 2024-11-14 02:08 | Outpatient (CLI) | payer MEDICARE, SELFPAY ==
--- NOTE | 2024-11-14 07:15 | DI.CT_ITS ---
Exam(s) CT CHEST HIGH RESOLUTION EXAM: CT CHEST HIGH RESOLUTION CLINICAL HISTORY: interstitial lung disease J84.9 ABNL FINDINGS LUNG R91.8. TECHNIQUE: Imaging protocol: Axial computed tomography images were obtained and coronal and sagittal reformatted images were created and reviewed. Additional expiratory images were performed at 10 millimeter intervals. COMPARISON: CT CHEST FOR PULMONARY EMBOLUS from 09/15/[address] CHEST HIGH RESOLUTION from 12/14/[address] THORAX ABD/PEL CTA from 10/03/2024 FINDINGS: Tracheobronchial tree: Patent where visualized. Mediastinum and Louise: No dominant adenopathy or fluid collection. Pulmonary parenchyma: No consolidation or dominant measurable mass. Mild emphysematous changes. Stable small nodules in the right upper and lower lobes. Mild biapical scarring. Peripheral interstitial thickening is noted at the bilateral lung bases with some honeycombing just above the level of the diaphragm. The findings appear stable compared to 2022. Pleura: No effusion or pneumothorax. Heart: The heart is not dilated. Mild coronary artery calcifications are seen. Mitral annular calcifications. Aorta: Thoracic aorta non-dilated. Calcification proximally versus prosthesis. Heavy calcification at the arch and descending aorta. Upper abdomen: Unremarkable. Lymph nodes: Within normal limits. Bones:Stable thoracic compression fractures. Tubes, Catheters, and Lines: IMPRESSION: There are stable interstitial changes greatest at the posterior lung bases where there is some honeycombing. RADIATION DOSE DELIVERED: 326.89mGy.cm Total DLP DATA REPOSITORY: All CT scans at this facility are submitted to the National Radiology Data Registry (NRDR) Dose Index Registry (DIR) with the [employer] ([employer]). RADIATION OPTIMIZATION: All CT scans at this facility use at least one of these dose optimization techniques: automated exposure control; mA and/or kV adjustment per patient size (includes targeted exams where dose is matched to clinical indication); or iterative reconstruction.
== END 2024-11-14 02:28 ==
LOC: DI 02:08
PROVIDERS: PCP Family Medicine; Visit Provider Internal Medicine Pulmonary Disease
DX: J84.9 Interstitial pulmonary disease, unspecified (principal); R91.8 Other nonspecific abnormal finding of lung field
CPT/HCPCS: 71250

== ENCOUNTER 2024-11-26 01:35 | Outpatient (CLI) | payer MEDICARE, SELFPAY ==
[2024-11-26] MEDS: Inhaler, Assist Device 1 EACH MC (11:29)
[2024-11-26] MEDS: Levalbuterol HFA 15 GM INH 4 PUFF IH (11:30)
--- NOTE | 2024-11-27 10:25 | PFT_ITS ---
Date of service: 11/26/24 Time of Service: 09:54 Pulmonary Function Test Result Indications: ILD Impression 1. Good patient effort was noted. ATS standards for reproducibility were met. 2. Normal spirometry. 3. Following the administration of a bronchodilator there was not a significant response 4. TLC was normal. No evidence of restrictive lung disease 5. DLCO was reduced at 62% predicted, consistent with a moderate defect in al veolar gas exchange
== END 2024-11-26 01:36 | disposition home or self-care (01) ==
PROVIDERS: PCP Family Medicine; Visit Provider Internal Medicine Pulmonary Disease
DX: J84.9 Interstitial pulmonary disease, unspecified (principal)
CPT/HCPCS: 94060; 94726; 94729

== ENCOUNTER 2024-12-02 08:21 | Outpatient (CLI) | payer MEDICARE, SELFPAY ==
--- NOTE | 2024-12-02 08:15 | RT.EKG_ITS ---
APPROVED REPORT Exam: Resting ECG Reason for Exam: OK Patient Location: O HR:116 bpm ECG Measurements Heart Rate 116 AXIS AK 155 P -28 QRSd 109 QRS -18 QT 335 T 5 QTc 466 Conclusion Sinus tachycardia...rate> 99 Left ventricular hypertrophy...multiple voltage criteria
== END 2024-12-02 08:22 | disposition home or self-care (01) ==
LOC: DI.CARD 08:42
PROVIDERS: PCP Family Medicine; Visit Provider Registered Nurse
DX: R94.31 Abnormal electrocardiogram [ECG] [EKG] (principal); I21.4 Non-ST elevation (NSTEMI) myocardial infarction
CPT/HCPCS: 93010

== ENCOUNTER → 2024-12-02 09:55 | Outpatient (BNVA) | payer MEDICARE, SELFPAY | PROVIDERS: PCP Family Medicine; Referring Provider Internal Medicine Pulmonary Disease; Visit Provider Registered Nurse | DX: I21.4 Non-ST elevation (NSTEMI) myocardial infarction (principal); I50.30 Unspecified diastolic (congestive) heart failure; I10 Essential (primary) hypertension; I47.19 Other supraventricular tachycardia; R94.31 Abnormal electrocardiogram [ECG] [EKG] | CPT/HCPCS: 99215; 93005 ==

== ENCOUNTER 2024-12-09 11:00 | Outpatient (RCR) | payer MEDICARE, SELFPAY ==
--- NOTE | 2024-12-09 10:30 | RT.EKG_ITS ---
APPROVED REPORT Exam: Resting ECG Reason for Exam: CR Intake Appointment - Baseline EKG Patient Location: O HR:92 bpm ECG Measurements Heart Rate 92 AXIS TN 150 P 55 QRSd 108 QRS -19 QT 358 T 37 QTc 443 Conclusion Sinus rhythm...normal P axis, V-rate 50- 99 RBBB
== END 2024-12-20 23:59 | disposition home or self-care (01) ==
LOC: CR 11:00
PROVIDERS: PCP Family Medicine; Visit Provider Internal Medicine Cardiovascular Disease
DX: I21.A1 Myocardial infarction type 2 (principal); I50.21 Acute systolic (congestive) heart failure; Z51.89 Encounter for other specified aftercare
CPT/HCPCS: S9472

== ENCOUNTER 2024-12-09 11:55 | Outpatient (CLI) | payer MEDICARE, SELFPAY | END 2024-12-09 11:56 | disposition home or self-care (01) | PROVIDERS: PCP Family Medicine; Visit Provider Registered Nurse | DX: I47.19 Other supraventricular tachycardia (principal) | CPT/HCPCS: 93270 ==

== ENCOUNTER 2024-12-16 13:00 | Outpatient (RCR) | payer MEDICARE, SELFPAY | END 2024-12-20 23:59 | disposition home or self-care (01) | LOC: CR 13:00 | PROVIDERS: PCP Family Medicine; Visit Provider Internal Medicine Cardiovascular Disease | DX: I21.4 Non-ST elevation (NSTEMI) myocardial infarction (principal); I50.33 Acute on chronic diastolic (congestive) heart failure; Z51.89 Encounter for other specified aftercare | CPT/HCPCS: S9472 ==

== ENCOUNTER 2025-01-03 13:00 | Outpatient (RCR) | payer MEDICARE, SELFPAY | END 2025-01-19 23:59 | disposition home or self-care (01) | LOC: CR 13:00 | PROVIDERS: PCP Family Medicine; Visit Provider Internal Medicine Cardiovascular Disease | DX: I21.4 Non-ST elevation (NSTEMI) myocardial infarction (principal); I50.33 Acute on chronic diastolic (congestive) heart failure; Z51.89 Encounter for other specified aftercare | CPT/HCPCS: S9472 ==

== ENCOUNTER 2025-01-09 08:15 | Outpatient (CLI) | payer MEDICARE, SELFPAY ==
--- NOTE | 2025-01-09 08:51 | W.CARDEVENT ---
Date of service: 01/09/25 Time of Service: 08:52 Cardiac Event Recorder Referring Provider:: Cassie Payan Indications:: Tachycardia Cardiac Event Note: This is a cardiac event monitor. Patient was monitored for 20 days and 22 hours Rhythm throughout was sinus. Average heart rate overall was 72. Minimum was 58, maximum 112 There were no significant ventricular or supraventricular dysrhythmias. No symptoms were reported
== END 2025-01-09 08:16 | disposition home or self-care (01) ==
LOC: CARDOPNVT 08:15
PROVIDERS: PCP Family Medicine; Visit Provider Internal Medicine Cardiovascular Disease
DX: I47.19 Other supraventricular tachycardia (principal)
CPT/HCPCS: 93272